=== PATIENT | female | born 1990 | race Caucasian/White ===

== ENCOUNTER → 2017-03-07 | Outpatient (CLI) | payer OTHER ==
[~2017-03-07] MED LIST: BCPILLS PO; CEPH500C PO
[2017-03-07 17:16] LABS: BASO % 0.3 %; BASO ABS # 0.02 K/uL (0-0.2); COMPLETE YES; EOS % 1.4 %; HEMATOCRIT 40.1 % (37-47); IG% 0.1 %; LYMPH % 32.4 %; LYMPH ABS # 2.59 K/uL (1.2-3.4); MEAN CELL VOLUME 87.2 fL (80-100); MEAN CORPUSCULAR HEMOGLOBIN 29.3 pg (25-34); MEAN CORPUSCULAR HGB CONC 33.7 g/dl (32-36); MEAN PLATELET VOLUME 10.8 fL (7.4-10.4); NEUT % 59.8 %; PLATELET COUNT 301 K/uL (130-400)
== END | disposition home or self-care (01) ==
LOC: C.LABBFT 12:00
PROVIDERS: ATTEND Physician Assistant Medical
DX: R53.83 Other fatigue (principal)

== ENCOUNTER 2018-08-28 14:32 | Inpatient (IN) ==
[2018-08-28] MEDS ORDERED: OXYTOCIN 30 UNITS/500 ML BAG IV PRN ×2 (15:08)
--- NOTE | 2018-08-28 15:12 | Labor Progress Brief Note ---
Date of Service August 28, 2018 Subjective LOF clear at home today. Was seen in office this morning, /-2 and intact at that time. Ruptured after went home from appointment. No significant ctx, +FM, no VB. Assessment & Plan (1) PROM (premature rupture of membranes): Ruptured. GBS neg, Rh pos. No obvious labor yet. Will induce with pitocin. Patient plans epidural and will let us know when ready for that. PROM onset of labor timing: unspecified duration between rupture of membranes and onset of labor PROM gestational age: full term Qualified Code(s): O42.92 - Full-term premature rupture of membranes, unspecified as to length of time between rupture and onset of labor Present on Admission?: Yes Physical Exam Physical Exam: /-2 FHT Cat 1 [place] irregular Q1-5, not painful LOF clear, grossly ruptured. Results & Data Vital Signs (Past 12 Hours) Vital Signs Pulse BP 08/28/18 14:48 112 H 136/90 08/28/18 14:42 111 H 128/82
[2018-08-28 15:39] LABS: Hematocrit (blood only) 29.6 % (37-47); Hemoglobin 10.2 g/dL (12.0-16.0); Mean Corpuscular Volume 84.1 fL (80-100); Mean Platelet Volume 10.5 fL (7.4-10.4); Platelet Count 224 K/uL (130-400); RDW Coefficient of Variation 13.4 % (11.5-14.5); RDW Standard Deviation 40.5 fL (36.4-46.3); Red Blood Count 3.52 M/uL (4.2-5.4); White Blood Count 10.48 K/uL (4.8-10.8)
[2018-08-28 15:43] LABS: Mean Corpuscular Hgb Conc 34.5 g/dL (32-36)
--- NOTE | 2018-08-28 16:02 | History & Physical Report ---
Date of Service August 28, 2018 Assessment & Plan (1) SROM (spontaneous rupture of membranes): Pt is a 28 year old with lmp of 11/28/2017 and EDC of 09/04/2018 presenting from the office with srom, confirmed on cervical exam. - FHT reassuring Cat 1 tracing - SROM /-2 - LR @ 125 - If labor fails to progression or ctx are not forceful consider augmentation of labor -PRN Pitocin 30 units in 500 mls @ 1 mls/hr -> up by 2 - Monitor FHT/toco - Monitor BP - Routine labor care - Anticipate Vaginal , Expectant management History of Present Illness Primary Care Provider: Gorge Martin MD Pt is a 28 year old with lmp of 11/28/2017 and EDC of 09/04/2018 confirmed by 1st trimester ultrasound on 01/23/2018 at 8+0 who presents at 39+0 from the outpatient office with SROM. course was significant for suspected diet controlled GDM, cervical exam in office today was /-2 cervical exam today on presentation was /-2 SROM prior to presentation for clear fluid. Pt resting comfortably in bed with lots of family at the bedside. Pt is having a baby girl, Nikole. Currently she reports feeling intermittent contractions >10 minutes apart subjectively, reports kind of like menstrual cramps, they are not very strong. She currently denies nausea, vomiting, RUQ pain, swelling, headache, blurred vision, vaginal bleeding, or decreased movement. No acute concerns at present, answered all questions labs First Visit: 8+0 Weight Gain: 31.2 lbs AB+ antibody neg Last HGB: 10.9 06/26/2018 Rubella Immune HIV neg Pap neg 06/01/17 Last U/S 02/21/18: Cephalic, no obvious abruption EFW 61%, UNA 16.8 EGA:37+3 BP Range 110/60-134/70 U/A: NG GBS negative RPR Negative HBsAG Negative GC/ Chlamydia negative Allergies Allergy/AdvReac Type Severity Reaction Status Date / Time azithromycin Allergy Unknown Verified 08/28/18 15:17 Home Medications Home Medications Medication Instructions Recorded Confirmed Type Control Pills 1 tab PO DAILY #0 11/14/08 History Cephalexin Monohydrate (Keflex) 500 mg PO TID 5 Days #0 11/14/08 Rx Patient History Social History Preferred Language: Beninese Communication Ability: Effective 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 Has been taking PNV throughout the , not on BC at conception [employer] History GYNHX: menearche @ 11, monthly cycles 30 days, normal amount and duration, neg pap 05/02/17, no hx PID or STDS PMHX: hx heart murmur-no SBE prophylaxis, hx migraines, wisdom teeth, + chicken pox Allergies: Z-harpreet-GI upset Physical Exam Constitutional: WD/WN, vitals as above Eyes: normal visual hernandez by confrontation Neck: normal visual inspection and trachea midline Respiratory: normal respiratory effort, lungs clear to auscultation Cardiovascular: RRR, no murmur, no edema Heart Sounds: normal S1 and normal S2 Extremities: normal capillary refill and + pedal edema (ssociated with has not changed in past 3 weeks ); no calf tenderness Gastrointestinal (Abdomen): Gravid belly Skin: no rashes, warm and dry Psychiatric: A+Ox3, euthymic affect Results & Data Vital Signs (Past 12 Hours) Vital Signs Temp Pulse Resp BP 08/28/18 15:04 36.7 C 112 H 18 136/90 08/28/18 14:48 112 H 136/90 08/28/18 14:42 111 H 128/82 Laboratory Results 08/28/18 08/28/18 Range/Units 15:28 15:28 WBC 10.48 (4.8-10.8) K/uL RBC 3.52 L (4.2-5.4) M/uL Hgb 10.2 L (12.0-16.0) g/dL Hct 29.6 L (37-47) % MCV 84.1 (80-100) fL MCH 29.0 (25-34) pg MCHC 34.5 (32-36) g/dL RDW Std Deviation 40.5 (36.4-46.3) fL RDW Coeff of Michael 13.4 (11.5-14.5) % Plt Count 224 (130-400) K/uL MPV 10.5 H (7.4-10.4) fL RPR Pending Medications Administered Current Inpatient Medications Lactated Ringer's (Lr) 1,000 mls @ 125 mls/hr IV .Q8H PRN; Protocol PRN Reason: L&D Protocol Stop: 08/30/18 15:07 Oxytocin (Pitocin) 30 units in 500 mls @ 1 mls/hr IV .Q24H PRN; Protocol PRN Reason: Labor Induction/Augmentation Stop: 08/30/18 15:07 Last Admin: 08/28/18 15:35 Dose: 0.06 units/hr, 1 mls/hr Documented by: Oxytocin (Pitocin) 30 units in 500 mls @ 333.333 mls/hr IV .Q1H30M PRN; Protocol PRN Reason: Bleeding Control Stop: 09/27/18 15:07 Code Status & VTE Plan Code Status Full VTE Prophylaxis Plan VTE Prophylaxis will be ordered: Yes Monitoring External Monitor FHR 145 moderate variability Accels present No Decels CTX q 3 per toco Cat 1 Tracing Resident Activity Tracking Resident Involvement: Resident Care Provided Care Provided: Adult Hospital Medicine
[2018-08-28] MEDS: LACTATED RINGER'S 1,000 ML IV PRN ×2 (16:10→17:39)
[2018-08-28] MEDS ORDERED: BUPIVACAINE 0.25% 30 ML VIAL ONE (17:11)
[2018-08-28] MEDS ORDERED: ePHEDrine sulfate 50 MG/ML AMP ONE (17:11)
[2018-08-28] MEDS ORDERED: fentaNYL citrate 100 MCG/2 ML VIAL ONE (17:13)
[2018-08-28] MEDS ORDERED: fentaNYL 2MCG/ML ROPIV 1.25MG/ML 100 ML BAG EPI ONE (17:14)
--- NOTE | 2018-08-28 18:12 | Anesthesiology Consultation ---
Date of Service August 28, 2018 Assessment & Plan (1) Encounter for pre-operative examination: Chart Review Chart Review: Patient NOT seen in Pre Admission Testing and Acceptable Risk for Labor Epidural Consults Requested none ASA ASA2 Proposed Anesthesia Anesthesia Type: Labor Epidural Risk / Benefits Reviewed With: PT / POA / Parent / Guardian, Accepts Plan and Informed Consent Obtained History Height/Weight Height: 5 ft 3 in Weight: 86.183 kg Allergies Allergy/AdvReac Type Severity Reaction Status Date / Time azithromycin Allergy Unknown Verified 08/28/18 15:17 Medications Home Medications Medication Instructions Recorded Confirmed Last Taken vit-iron fum-folic ac 1 tab PO DAILY 08/28/18 08/28/18 08/27/18 08:00 [ Vitamin] Active Medications Generic Name Dose Route Start Last Admin Trade Name Freq PRN Reason Stop Dose Admin Lactated Ringer's 1,000 mls @ 125 mls/hr 08/28/18 15:08 08/28/18 17:41 Lr IV 08/30/18 15:07 125 mls/hr .Q8H PRN Infusion L&D Protocol Protocol Oxytocin 30 units in 500 mls @ 3 mls/hr 08/28/18 15:08 08/28/18 18:38 Pitocin IV 08/30/18 15:07 0.3 units/hr .Q24H PRN 5 mls/hr Labor Induction/Augmentation Titration Protocol 0.18 UNITS/HR NPO Date Last Intake of Fluids: 08/28/18 Time Last Intake of Fluids: 18:48 Date Last Intake of Solids: 08/28/18 Time Last Intake of Solids: 13:30 Exercise / Class Metabolic Activity II 4-5 Yardwork/Stairs/Walk up hill Past Surgical History Surgical History History of tooth extraction Past Anesthesia History No Hx of Anesthesia Complications and No Family Hx of Anesthesia Complications History of PONV No Hx of PONV and Hx of Motion Sickness Social History Smoking Status: Never smoker Do You Dip or Chew Tobacco: No Hx Alcohol Use: No Hx Substance Use: No substance use type: does not use Review of Systems Patient denies history of abnormal bleeding or bleeding disorder. Patient denies active use of anticoagulants other than low dose aspirin. Patient denies numbness, tingling or weakness in lower extremities. Patient denies active symptoms of GERD. Physical Exam Vital Signs Last Vital Signs Temp 37.0 C 08/28/18 17:54 Pulse 109 H 08/28/18 18:08 Resp 20 08/28/18 17:54 BP 139/77 08/28/18 17:46 Pulse Ox 99 08/28/18 18:08 Constitutional not obese (Gravid uterus) ENMT Mouth: no TMJ abnormality and oral opening not small Thyromental Distance: > or= 3.5 Finger Breadths Mallampati Class: III Mouth / Teeth: 1. Caps Neck normal visual inspection; neck extension not limited Respiratory normal respiratory effort Auscultation: lungs clear to auscultation bilaterally Cardiovascular Rate/Rhythm: regular rate and regular rhythm Heart Sounds: no murmur Neurologic moves all extremities Motor/Sensory: no sensory deficit Psychiatric Orientation: alert and oriented x 3 Testing Laboratory Results 08/28/18 15:28 08/28/18 17:02 POC Glucose 81
[2018-08-28] MEDS ORDERED: NALOXONE HCL 0.4 MG/1 ML VIAL/CARP IV PRN (18:50)
[2018-08-28] MEDS ORDERED: fentaNYL 2MCG/ML ROPIV 1.25MG/ML 100 ML BAG EPI PRN (18:50)
[2018-08-28] MEDS ORDERED: NALOXONE HCL 1 MG in SODIUM CHLORIDE 0.9% 1000ML 1,000 ML IV PRN (18:50)
[2018-08-28] MEDS ORDERED: ePHEDrine sulfate 50 MG/ML AMP IV PRN (18:50)
[2018-08-28] MEDS ORDERED: NALBUPHINE HCL INJ 10 MG/ML AMP IV PRN (18:50)
[2018-08-28] MEDS ORDERED: DiphenhydrAMINE HCL 50 MG/ML VIAL IV PRN (18:50)
[2018-08-28] MEDS ORDERED: ONDANSETRON INJ 2 MG/ML 2 ML VIAL IV PRN (18:50)
[2018-08-28] MEDS ORDERED: LACTATED RINGER'S 1,000 ML IV PRN (18:50)
[2018-08-29] MEDS: LACTATED RINGER'S 1,000 ML IV PRN ×2 (01:38→06:27)
--- NOTE | 2018-08-29 02:09 | Labor Progress Brief Note ---
Date of Service August 29, 2018 Subjective Comfortable with epidural Assessment & Plan (1) PROM (premature rupture of membranes): IOL with good progress. Close obs of status with decel after exam. PROM onset of labor timing: unspecified duration between rupture of membranes and onset of labor PROM gestational age: full term Qualified Code(s): O42.92 - Full-term premature rupture of membranes, unspecified as to length of time between rupture and onset of labor Present on Admission?: Yes Physical Exam Physical Exam: FHT Cat 1 [place] Q2m Cvx 8/90/+1 FHT noted to decelerate after exam / scalp stim. Recovered to 150 baseline. Results & Data Vital Signs (Past 12 Hours) Vital Signs Temp Pulse Resp BP Pulse Ox 08/29/18 02:04 105 H 121/56 L 08/29/18 02:03 97 H 98 08/29/18 01:58 123 H 99 08/29/18 01:53 105 H 100 08/29/18 01:49 93 H 123/61 08/29/18 01:48 109 H 91 08/29/18 01:43 92 H 98 08/29/18 01:38 96 H 99 08/29/18 01:33 90 99 08/29/18 01:28 101 H 98 08/29/18 01:23 98 H 97 08/29/18 01:20 94 H 124/73 08/29/18 01:18 101 H 97 08/29/18 01:13 97 H 97 08/29/18 01:08 95 H 97 08/29/18 01:03 94 H 126/73 97 08/29/18 01:00 18 08/29/18 00:58 90 97 08/29/18 00:53 89 99 08/29/18 00:50 37.0 C 08/29/18 00:49 101 H 131/77 08/29/18 00:48 102 H 99 08/29/18 00:43 93 H 100 08/29/18 00:38 90 97 08/29/18 00:34 88 116/65 08/29/18 00:33 85 97 08/29/18 00:30 18 08/29/18 00:28 86 97 08/29/18 00:23 89 97 08/29/18 00:19 88 116/68 08/29/18 00:18 88 98 08/29/18 00:13 96 H 99 08/29/18 00:08 95 H 98 08/29/18 00:04 93 H 134/74 08/29/18 00:03 94 H 99 08/29/18 00:00 16 08/28/18 23:58 99 H 98 08/28/18 23:53 100 H 97 08/28/18 23:49 99 H 128/75 08/28/18 23:48 95 H 96 08/28/18 23:43 100 H 98 08/28/18 23:38 96 H 98 08/28/18 23:35 91 H 131/74 08/28/18 23:33 93 H 98 08/28/18 23:30 16 08/28/18 23:28 97 H 98 08/28/18 23:23 91 H 98 08/28/18 23:20 90 125/76 08/28/18 23:18 91 H 99 08/28/18 23:15 18 08/28/18 23:13 109 H 97 08/28/18 23:08 101 H 99 08/28/18 23:03 87 110/59 L 98 08/28/18 23:00 36.7 C 18 08/28/18 22:58 86 97 08/28/18 22:53 94 H 97 08/28/18 22:48 82 117/64 97 08/28/18 22:43 84 97 08/28/18 22:38 96 H 98 08/28/18 22:35 95 H 115/66 08/28/18 22:33 100 H 97 08/28/18 22:28 87 97 08/28/18 22:23 87 98 08/28/18 22:18 93 H 99 08/28/18 22:13 93 H 98 08/28/18 22:12 99 H 139/75 08/28/18 22:08 108 H 98 08/28/18 22:03 108 H 98 08/28/18 21:58 103 H 97 08/28/18 21:56 106 H 134/64 08/28/18 21:53 112 H 96 08/28/18 21:48 110 H 97 08/28/18 21:43 105 H 98 08/28/18 21:42 105 H 129/63 08/28/18 21:38 105 H 97 08/28/18 21:33 95 H 98 05/13/19 21:28 105 H 97 08/28/18 21:26 95 H 118/64 05 21:23 108 H 97 08/28/18 21:18 107 H 98 05 21:13 112 H 99 08/28/18 21:11 99 H 134/78 08/28/18 21:08 96 H 97 08/28/18 21:03 99 H 97 08/28/18 20:58 87 98 08/28/18 20:57 85 108/60 08/28/18 20:53 84 99 08/28/18 20:48 91 H 97 08/28/18 20:43 84 99 08/28/18 20:42 82 118/64 08/28/18 20:38 84 97 08/28/18 20:33 96 H 98 08/28/18 20:28 90 98 08/28/18 20:26 84 123/63 08/28/18 20:23 83 99 08/28/18 20:18 100 H 98 08/28/18 20:13 97 H 98 08/28/18 20:11 93 H 138/63 08/28/18 20:08 100 H 97 08/28/18 20:03 106 H 98 08/28/18 20:01 37.0 C 18 08/28/18 19:58 98 H 132/65 97 08/28/18 19:53 93 H 97 08/28/18 19:48 89 98 08/28/18 19:43 95 H 97 08/28/18 19:41 92 H 126/67 08/28/18 19:38 91 H 97 08/28/18 19:33 103 H 98 08/28/18 19:28 102 H 98 08/28/18 19:27 96 H 129/75 08/28/18 19:23 98 H 97 08/28/18 19:18 96 H 99 08/28/18 19:13 98 H 99 08/28/18 19:12 95 H 153/65 H 05 19:08 95 H 98 08/28/18 19:03 94 H 98 05 18:58 101 H 98 08/28/18 18:55 107 H 129/73 08/28/18 18:53 89 133/66 97 08/28/18 18:51 98 H 139/69 08/28/18 18:49 115 H 133/79 08/28/18 18:48 113 H 98 08/28/18 18:47 104 H 137/79 08/28/18 18:45 110 H 132/76 08/28/18 18:43 105 H 135/82 97 08/28/18 18:41 112 H 126/78 08/28/18 18:39 100 H 128/71 08/28/18 18:38 105 H 98 08/28/18 18:37 98 H 132/73 08/28/18 18:36 102 H 138/77 08/28/18 18:33 102 H 99 08/28/18 18:28 111 H 97 08/28/18 18:27 112 H 150/84 H 08/28/18 18:23 113 H 88 L 08/28/18 18:22 104 H 150/79 H 08/28/18 18:18 103 H 98 08/28/18 18:17 104 H 151/85 H 08/28/18 18:13 105 H 98 08/28/18 18:08 109 H 99 08/28/18 18:03 110 H 96 08/28/18 17:58 96 H 98 08/28/18 17:54 37.0 C 20 08/28/18 17:53 103 H 96 08/28/18 17:48 107 H 96 08/28/18 17:46 91 H 139/77 08/28/18 17:43 94 H 98 08/28/18 17:38 100 H 98 08/28/18 17:34 102 H 136/71 08/28/18 17:33 104 H 99 08/28/18 15:30 37.0 C 18 08/28/18 15:04 36.7 C 112 H 18 136/90 08/28/18 14:48 112 H 136/90 08/28/18 14:42 111 H 128/82
[2018-08-29] MEDS ORDERED: CITRIC ACID/SODIUM CITRATE 15 ML UDC PO SCH (06:00)
[2018-08-29] MEDS ORDERED: CEFAZOLIN 3000MG 65 ML IV SCH (06:00)
[2018-08-29] MEDS ORDERED: LACTATED RINGER'S 1,000 ML IV SCH ×3 (06:15→08:00)
--- NOTE | 2018-08-29 06:16 | Labor Progress Brief Note ---
Date of Service August 29, 2018 Subjective Patient visited after pushing for two hours. I have monitored her strip remotely through the second stage of labor, and noted improvement in heart tones; effective pushing per RN; therefore patient given two hours to attempt to deliver. Patient now expressing to me in the room that she is tired and feels unsure she is "making anything happen." Assessment & Plan (1) SROM (spontaneous rupture of membranes): Patient given 2 hours to attempt second stage of labor. She gives excellent pushing effort and has succeeded in bringing caput to +2, however assessment of skull shows less progress than anticipated, and head remains displaceable suggesting CPD. The labial edema also causes me to have concerns about fit through the pelvis. FHT are currently reassuring and appropriate for stage 2, and patient was counseled on options including to continue pushing vs to move to for suspected CPD. There is no emergency at this time given reassuring status, though I do doubt that she has much chance of delivering vaginally given the findings at this point. At this time, patient feels confident that she prefers to move to without further delay. Consent completed with RN and FOB in room. All questions answered. Present on Admission?: Yes Physical Exam Physical Exam: Patient has bed-bar up and sheet wrapped around; has been making excellent efforts to push with use of counter-pulling. Labia are significantly swollen. With pushing effort, scalp strains down to +2 station. However, caput is significant. skull is not moving well, and after pushing effort ceases, it is easily displaced upwards to allow significant flow of clear amniotic fluid per vagina. Results & Data Vital Signs (Past 12 Hours) Vital Signs Temp Pulse Resp BP Pulse Ox 08/29/18 06:08 137 H 88 L 08/29/18 06:04 110 H 127/60 08/29/18 06:03 174 H 87 L 08/29/18 05:58 110 H 94 08/29/18 05:53 115 H 98 08/29/18 05:51 130 H 86 L 08/29/18 05:49 127 H 117/60 08/29/18 05:48 155 H 88 L 08/29/18 05:45 126 H 92 08/29/18 05:43 98 H 82 L 05/14/19 05:38 115 H 95 08/29/18 05:35 115 H 75 L 08/29/18 05:34 127 H 141/60 H 08/29/18 05:33 123 H 68 L 08/29/18 05:29 122 H 93 08/29/18 05:28 107 H 96 08/29/18 05:23 122 H 98 08/29/18 05:19 120 H 117/63 08/29/18 05:18 135 H 97 08/29/18 05:15 20 08/29/18 05:13 112 H 95 08/29/18 05:08 103 H 96 08/29/18 05:03 112 H 97 08/29/18 05:00 18 08/29/18 04:58 110 H 97 08/29/18 04:53 108 H 97 08/29/18 04:48 103 H 133/61 96 08/29/18 04:45 18 08/29/18 04:43 113 H 98 08/29/18 04:38 143 H 97 08/29/18 04:34 118 H 117/62 08/29/18 04:33 100 H 97 08/29/18 04:30 20 08/29/18 04:28 123 H 98 08/29/18 04:23 104 H 97 08/29/18 04:20 127 H 140/55 L 08/29/18 04:18 133 H 94 08/29/18 04:15 18 08/29/18 04:13 147 H 96 08/29/18 04:08 122 H 97 08/29/18 04:05 139 H 86 L 08/29/18 04:04 127 H 127/59 L 08/29/18 04:03 128 H 96 08/29/18 04:00 120 H 20 91 08/29/18 03:58 141 H 98 08/29/18 03:53 115 H 96 08/29/18 03:49 131 H 120/58 L 08/29/18 03:48 117 H 98 08/29/18 03:43 119 H 98 08/29/18 03:42 37.4 C 08/29/18 03:38 104 H 98 08/29/18 03:35 105 H 129/65 08/29/18 03:33 107 H 98 08/29/18 03:30 16 08/29/18 03:28 107 H 97 08/29/18 03:23 101 H 98 08/29/18 03:19 104 H 116/61 08/29/18 03:18 102 H 98 08/29/18 03:13 108 H 98 08/29/18 03:10 37.6 C H 08/29/18 03:08 100 H 98 08/29/18 03:04 100 H 115/60 08/29/18 03:03 100 H 97 08/29/18 03:00 18 08/29/18 02:58 108 H 98 08/29/18 02:53 103 H 98 08/29/18 02:48 107 H 125/70 98 08/29/18 02:43 105 H 97 08/29/18 02:38 105 H 98 08/29/18 02:35 102 H 129/74 08/29/18 02:33 102 H 98 08/29/18 02:30 18 08/29/18 02:28 104 H 99 08/29/18 02:23 104 H 99 08/29/18 02:22 36.8 C 08/29/18 02:18 106 H 128/63 99 08/29/18 02:13 97 H 99 08/29/18 02:08 102 H 98 08/29/18 02:04 105 H 121/56 L 08/29/18 02:03 97 H 98 08/29/18 02:00 18 08/29/18 01:58 123 H 99 08/29/18 01:53 105 H 100 08/29/18 01:49 93 H 123/61 08/29/18 01:48 109 H 91 08/29/18 01:43 92 H 98 08/29/18 01:38 96 H 99 08/29/18 01:33 90 99 08/29/18 01:30 20 08/29/18 01:28 101 H 98 08/29/18 01:23 98 H 97 08/29/18 01:20 94 H 124/73 08/29/18 01:18 101 H 97 08/29/18 01:13 97 H 97 08/29/18 01:08 95 H 97 08/29/18 01:03 94 H 126/73 97 08/29/18 01:00 18 08/29/18 00:58 90 97 08/29/18 00:53 89 99 08/29/18 00:50 37.0 C 08/29/18 00:49 101 H 131/77 08/29/18 00:48 102 H 99 08/29/18 00:43 93 H 100 08/29/18 00:38 90 97 08/29/18 00:34 88 116/65 08/29/18 00:33 85 97 08/29/18 00:30 18 08/29/18 00:28 86 97 08/29/18 00:23 89 97 08/29/18 00:19 88 116/68 08/29/18 00:18 88 98 08/29/18 00:13 96 H 99 08/29/18 00:08 95 H 98 08/29/18 00:04 93 H 134/74 08/29/18 00:03 94 H 99 08/29/18 00:00 16 08/28/18 23:58 99 H 98 08/28/18 23:53 100 H 97 08/28/18 23:49 99 H 128/75 08/28/18 23:48 95 H 96 08/28/18 23:43 100 H 98 08/28/18 23:38 96 H 98 08/28/18 23:35 91 H 131/74 08/28/18 23:33 93 H 98 08/28/18 23:30 16 08/28/18 23:28 97 H 98 08/28/18 23:23 91 H 98 08/28/18 23:20 90 125/76 08/28/18 23:18 91 H 99 08/28/18 23:15 18 08/28/18 23:13 109 H 97 08/28/18 23:08 101 H 99 08/28/18 23:03 87 110/59 L 98 08/28/18 23:00 36.7 C 18 08/28/18 22:58 86 97 08/28/18 22:53 94 H 97 08/28/18 22:48 82 117/64 97 08/28/18 22:43 84 97 08/28/18 22:38 96 H 98 08/28/18 22:35 95 H 115/66 08/28/18 22:33 100 H 97 08/28/18 22:28 87 97 08/28/18 22:23 87 98 08/28/18 22:18 93 H 99 08/28/18 22:13 93 H 98 08/28/18 22:12 99 H 139/75 08/28/18 22:08 108 H 98 05 22:03 108 H 98 08/28/18 21:58 103 H 97 08/28/18 21:56 106 H 134/64 08/28/18 21:53 112 H 96 08/28/18 21:48 110 H 97 08/28/18 21:43 105 H 98 08/28/18 21:42 105 H 129/63 08/28/18 21:38 105 H 97 08/28/18 21:33 95 H 98 08/28/18 21:28 105 H 97 08/28/18 21:26 95 H 118/64 08/28/18 21:23 108 H 97 08/28/18 21:18 107 H 98 08/28/18 21:13 112 H 99 08/28/18 21:11 99 H 134/78 08/28/18 21:08 96 H 97 08/28/18 21:03 99 H 97 08/28/18 20:58 87 98 08/28/18 20:57 85 108/60 08/28/18 20:53 84 99 08/28/18 20:48 91 H 97 08/28/18 20:43 84 99 08/28/18 20:42 82 118/64 08/28/18 20:38 84 97 08/28/18 20:33 96 H 98 08/28/18 20:28 90 98 08/28/18 20:26 84 123/63 08/28/18 20:23 83 99 08/28/18 20:18 100 H 98 08/28/18 20:13 97 H 98 08/28/18 20:11 93 H 138/63 08/28/18 20:08 100 H 97 08/28/18 20:03 106 H 98 08/28/18 20:01 37.0 C 18 08/28/18 19:58 98 H 132/65 97 08/28/18 19:53 93 H 97 08/28/18 19:48 89 98 08/28/18 19:43 95 H 97 08/28/18 19:41 92 H 126/67 08/28/18 19:38 91 H 97 08/28/18 19:33 103 H 98 08/28/18 19:28 102 H 98 05 19:27 96 H 129/75 05/ 19:23 98 H 97 05 19:18 96 H 99 05 19:13 98 H 99 05 19:12 95 H 153/65 H 08/28/18 19:08 95 H 98 05 19:03 94 H 98 08/28/18 18:58 101 H 98 08/28/18 18:55 107 H 129/73 08/28/18 18:53 89 133/66 97 08/28/18 18:51 98 H 139/69 08/28/18 18:49 115 H 133/79 08/28/18 18:48 113 H 98 08/28/18 18:47 104 H 137/79 08/28/18 18:45 110 H 132/76 08/28/18 18:43 105 H 135/82 97 08/28/18 18:41 112 H 126/78 08/28/18 18:39 100 H 128/71 08/28/18 18:38 105 H 98 08/28/18 18:37 98 H 132/73 / 18:36 102 H 138/77 08/28/18 18:33 102 H 99 08/28/18 18:28 111 H 97 08/28/18 18:27 112 H 150/84 H 08/28/18 18:23 113 H 88 L 08/28/18 18:22 104 H 150/79 H 08/28/18 18:18 103 H 98 08/28/18 18:17 104 H 151/85 H 08/28/18 18:13 105 H 98
[2018-08-29] MEDS ORDERED: LIDOCAINE/EPINEPHRINE 2% 1:200,000 20 ML SDV ONE (06:19)
[2018-08-29] MEDS ORDERED: fentaNYL citrate 100 MCG/2 ML VIAL ONE (07:00)
[2018-08-29] MEDS ORDERED: ONDANSETRON INJ 2 MG/ML 2 ML VIAL ONE (07:00)
[2018-08-29] MEDS ORDERED: MoRPHine SULFATE PF 1 MG/ML 10 ML AMP/VIAL ONE (07:12)
[2018-08-29] MEDS ORDERED: KETOROLAC 30 MG/ML VIAL ONE (07:38)
[2018-08-29] MEDS ORDERED: PHENYLEPHRINE 100MCG/ML 5ML SYR ONE (07:44)
[2018-08-29] MEDS ORDERED: DIPHTHERIA/TETANUS/PERTUSSIS 0.5 ML SYR/VIAL IM ONE (07:51)
[2018-08-29] MEDS ORDERED: BENZOCAINE 20% AER SPR 82.5 GM CAN EXT PRN (07:51)
[2018-08-29] MEDS ORDERED: SUPERCREAM 0.870% 15 GM JAR EXT PRN (07:51)
[2018-08-29] MEDS ORDERED: HYDROCORTISONE ACETATE 25 MG SUPP PR PRN (07:51)
[2018-08-29] MEDS ORDERED: ONDANSETRON INJ 2 MG/ML 2 ML VIAL IV PRN ×2 (07:51→07:54)
--- NOTE | 2018-08-29 07:52 | Operative Report ---
Post Operative Report Pre & Post Diagnosis Operation Date: 08/29/18 06:10 Pre-Op Diagnosis: SIUP @ Term PROM, IOL. Failure to descend in second stage Post-Op Diagnosis: same as pre-op Procedure Operation Date: 08/29/18 06:10 Actual Procedures p Primary LT Section in LD, delivery of live female child at 0715 - Sharon Mcmanus MD Surgeon Sharon Mcmanus MD Legal Document Specialist Dori Estimated Blood Loss 700 Findings Consistent with Post-Op Diagnosis Normal tubes, ovaries. Specimens Placenta, cord blood, cord gases Anesthesia Type Spinal Complications none Disposition Accompanied Patient To Recovery: Yes Disposition: L&D Description of Procedure The patient was brought to the operating room and placed on the table in the supine position with a leftward tilt, then prepped and draped in standard sterile fashion. A hard time out was taken prior to proceeding. A pfannensteil incision was created sharply and carried down to the fascia using bovie electrocautery. The fascia was nicked and then extended using navarro scissors. The edges of the fascia were grasped with Estrellita clamps and elevated, then sharply and bluntly dissected off the underlying rectus. The midline of the rectus was identified and bluntly . The peritoneum was bluntly entered, and this entry was extended using pressure from the surgeon's hands. The Jordan retractor was placed and the lower uterine segment was examined and found to be well developed. A bladder flap was created and the retractor was replaced behind this flap to protect the bladder. A transverse lower uterine incision was then created, with final entry to the uterine cavity made in a blunt manner with the surgeon's finger. Clear amniotic fluid was encountered. The head was elevated to the incision with a sterile gloved assist from below, and delivered using mild fundal pressure. The cord was doubly clamped and cut, then the vigorous infant was taken to the warmer for flat surfacer jewel care. The placenta was manually extracted, then the uterus was gently exteriorized from the maternal abdomen. The tubes and ovaries were examined and found to be normal bilaterally. The cavity was cleared of clot and debris using a dry lap sponge. The angles of the incision were identified with allis clamps, and the hysterotomy was then repaired in running locked fashion using 0-vicryl suture, followed by replacement of the uterus into the abdomen and a second imbricating layer was then added. Abisai and pressure were used to assure hemostasis in the area of the bladder flap. The rectus muscles were allowed to reapproximate naturally. The angle of the fascia was grasped with a Estrellita clamp and the fascia was then repaired in running non-locked fashion with 1-vicryl suture. At the completion of repair, the fascia was examined and found to be free of any defect. The subcutaneous tissue was copiously irrigated and then reapproximated using 3-0 chromic. The skin was then closed using 4-0 monocryl in a running subcuticular fashion and a dermabond dressing was applied. The laureano was noted to be draining clear yellow urine as the patient was transferred back to her recovery room. I attest to the content of the Intraoperative Record and any orders documented therein. Any exceptions are noted below.
[2018-08-29] MEDS ORDERED: NALOXONE HCL 0.08 MG in SYRINGE 1.8 ML IV PRN (07:54)
[2018-08-29] MEDS ORDERED: NALOXONE HCL 0.4 MG/1 ML VIAL/CARP IV PRN (07:54)
[2018-08-29] MEDS ORDERED: PROMETHAZINE HCL 25 MG in SODIUM CHLORIDE 0.9% 50 ML IV PRN (07:54)
[2018-08-29] MEDS ORDERED: KETOROLAC 30 MG/ML VIAL IV PRN (07:54)
[2018-08-29] MEDS ORDERED: HYDROmorphone INJ 0.5 MG/0.5 ML SYR IV PRN (07:54)
[2018-08-29] MEDS ORDERED: NALOXONE HCL 1 MG in SODIUM CHLORIDE 0.9% 1000ML 1,000 ML IV PRN (07:54)
[2018-08-29] MEDS ORDERED: ePHEDrine sulfate 50 MG/ML AMP IV PRN (07:54)
[2018-08-29] MEDS ORDERED: ACETAMINOPHEN 1000 MG/100 ML IV IV PRN (07:54)
[2018-08-29] MEDS ORDERED: LACTATED RINGER'S 500 ML IV PRN (07:54)
[2018-08-29] MEDS ORDERED: DiphenhydrAMINE HCL 50 MG/ML VIAL IV PRN (07:54)
[2018-08-29] MEDS ORDERED: MoRPHine SULFATE PF 1 MG/ML 10 ML AMP/VIAL EPI ONE (07:54)
[2018-08-29] MEDS ORDERED: NALBUPHINE HCL INJ 10 MG/ML AMP IV PRN (07:54)
--- NOTE | 2018-08-29 07:54 | Anesthesiology Progress Note ---
Date of Service August 29, 2018 Anesthesia Post Procedure Vital Signs Vital Signs: Temp Pulse Resp BP Pulse Ox 08/29/18 06:46 113 H 114/58 L 08/29/18 06:44 110 H 109/59 L 08/29/18 06:43 106 H 97 08/29/18 06:42 107 H 113/59 L 08/29/18 06:40 105 H 110/56 L 08/29/18 06:38 104 H 117/57 L 98 08/29/18 06:36 107 H 110/55 L 08/29/18 06:34 110 H 119/57 L 08/29/18 06:33 120 H 97 08/29/18 06:32 114 H 125/70 08/29/18 06:28 104 H 97 08/29/18 06:24 129 H 91 08/29/18 06:23 139 H 95 08/29/18 06:19 177 H 87 L 08/29/18 06:18 114 H 94 08/29/18 06:13 132 H 88 L 08/29/18 06:10 107 H 91 08/29/18 06:08 137 H 88 L 08/29/18 06:04 110 H 127/60 08/29/18 06:03 174 H 87 L 08/29/18 06:00 16 08/29/18 05:58 110 H 94 08/29/18 05:53 115 H 98 08/29/18 05:51 130 H 86 L 08/29/18 05:49 127 H 117/60 08/29/18 05:48 155 H 88 L 08/29/18 05:45 37.4 C 126 H 20 92 08/29/18 05:43 98 H 82 L 08/29/18 05:38 115 H 95 08/29/18 05:35 115 H 75 L 08/29/18 05:34 127 H 141/60 H 08/29/18 05:33 123 H 68 L 08/29/18 05:30 18 08/29/18 05:29 122 H 93 08/29/18 05:28 107 H 96 08/29/18 05:23 122 H 98 08/29/18 05:19 120 H 117/63 08/29/18 05:18 135 H 97 08/29/18 05:15 20 08/29/18 05:13 112 H 95 08/29/18 05:08 103 H 96 08/29/18 05:03 112 H 97 08/29/18 05:00 18 08/29/18 04:58 110 H 97 08/29/18 04:53 108 H 97 08/29/18 04:48 103 H 133/61 96 08/29/18 04:45 18 08/29/18 04:43 113 H 98 08/29/18 04:38 143 H 97 08/29/18 04:34 118 H 117/62 08/29/18 04:33 100 H 97 08/29/18 04:30 20 08/29/18 04:28 123 H 98 08/29/18 04:23 104 H 97 08/29/18 04:20 127 H 140/55 L 08/29/18 04:18 133 H 94 08/29/18 04:15 18 08/29/18 04:13 147 H 96 08/29/18 04:08 122 H 97 08/29/18 04:05 139 H 86 L 08/29/18 04:04 127 H 127/59 L 08/29/18 04:03 128 H 96 08/29/18 04:00 120 H 20 91 08/29/18 03:58 141 H 98 08/29/18 03:53 115 H 96 08/29/18 03:49 131 H 120/58 L 08/29/18 03:48 117 H 98 08/29/18 03:43 119 H 98 08/29/18 03:42 37.4 C 08/29/18 03:38 104 H 98 08/29/18 03:35 105 H 129/65 08/29/18 03:33 107 H 98 08/29/18 03:30 16 08/29/18 03:28 107 H 97 08/29/18 03:23 101 H 98 08/29/18 03:19 104 H 116/61 08/29/18 03:18 102 H 98 08/29/18 03:13 108 H 98 08/29/18 03:10 37.6 C H 08/29/18 03:08 100 H 98 08/29/18 03:04 100 H 115/60 08/29/18 03:03 100 H 97 08/29/18 03:00 18 08/29/18 02:58 108 H 98 08/29/18 02:53 103 H 98 08/29/18 02:48 107 H 125/70 98 08/29/18 02:43 105 H 97 08/29/18 02:38 105 H 98 08/29/18 02:35 102 H 129/74 08/29/18 02:33 102 H 98 08/29/18 02:30 18 08/29/18 02:28 104 H 99 08/29/18 02:23 104 H 99 08/29/18 02:22 36.8 C 08/29/18 02:18 106 H 128/63 99 08/29/18 02:13 97 H 99 08/29/18 02:08 102 H 98 08/29/18 02:04 105 H 121/56 L 08/29/18 02:03 97 H 98 08/29/18 02:00 18 08/29/18 01:58 123 H 99 08/29/18 01:53 105 H 100 08/29/18 01:49 93 H 123/61 08/29/18 01:48 109 H 91 08/29/18 01:43 92 H 98 08/29/18 01:38 96 H 99 08/29/18 01:33 90 99 08/29/18 01:30 20 08/29/18 01:28 101 H 98 08/29/18 01:23 98 H 97 08/29/18 01:20 94 H 124/73 08/29/18 01:18 101 H 97 08/29/18 01:13 97 H 97 08/29/18 01:08 95 H 97 08/29/18 01:03 94 H 126/73 97 08/29/18 01:00 18 08/29/18 00:58 90 97 08/29/18 00:53 89 99 08/29/18 00:50 37.0 C 08/29/18 00:49 101 H 131/77 08/29/18 00:48 102 H 99 08/29/18 00:43 93 H 100 08/29/18 00:38 90 97 08/29/18 00:34 88 116/65 08/29/18 00:33 85 97 08/29/18 00:30 18 08/29/18 00:28 86 97 08/29/18 00:23 89 97 08/29/18 00:19 88 116/68 08/29/18 00:18 88 98 08/29/18 00:13 96 H 99 08/29/18 00:08 95 H 98 08/29/18 00:04 93 H 134/74 08/29/18 00:03 94 H 99 08/29/18 00:00 16 08/28/18 23:58 99 H 98 08/28/18 23:53 100 H 97 08/28/18 23:49 99 H 128/75 08/28/18 23:48 95 H 96 08/28/18 23:43 100 H 98 08/28/18 23:38 96 H 98 08/28/18 23:35 91 H 131/74 08/28/18 23:33 93 H 98 08/28/18 23:30 16 08/28/18 23:28 97 H 98 08/28/18 23:23 91 H 98 08/28/18 23:20 90 125/76 08/28/18 23:18 91 H 99 08/28/18 23:15 18 08/28/18 23:13 109 H 97 08/28/18 23:08 101 H 99 08/28/18 23:03 87 110/59 L 98 08/28/18 23:00 36.7 C 18 08/28/18 22:58 86 97 08/28/18 22:53 94 H 97 08/28/18 22:48 82 117/64 97 08/28/18 22:43 84 97 08/28/18 22:38 96 H 98 08/28/18 22:35 95 H 115/66 08/28/18 22:33 100 H 97 08/28/18 22:28 87 97 08/28/18 22:23 87 98 08/28/18 22:18 93 H 99 08/28/18 22:13 93 H 98 08/28/18 22:12 99 H 139/75 08/28/18 22:08 108 H 98 08/28/18 22:03 108 H 98 08/28/18 21:58 103 H 97 08/28/18 21:56 106 H 134/64 08/28/18 21:53 112 H 96 08/28/18 21:48 110 H 97 08/28/18 21:43 105 H 98 08/28/18 21:42 105 H 129/63 08/28/18 21:38 105 H 97 05/13/19 21:33 95 H 98 08/28/18 21:28 105 H 97 08/28/18 21:26 95 H 118/64 05 21:23 108 H 97 08/28/18 21:18 107 H 98 08/28/18 21:13 112 H 99 08/28/18 21:11 99 H 134/78 08/28/18 21:08 96 H 97 08/28/18 21:03 99 H 97 08/28/18 20:58 87 98 08/28/18 20:57 85 108/60 08/28/18 20:53 84 99 08/28/18 20:48 91 H 97 08/28/18 20:43 84 99 08/28/18 20:42 82 118/64 08/28/18 20:38 84 97 08/28/18 20:33 96 H 98 08/28/18 20:28 90 98 08/28/18 20:26 84 123/63 08/28/18 20:23 83 99 08/28/18 20:18 100 H 98 08/28/18 20:13 97 H 98 08/28/18 20:11 93 H 138/63 08/28/18 20:08 100 H 97 08/28/18 20:03 106 H 98 08/28/18 20:01 37.0 C 18 08/28/18 19:58 98 H 132/65 97 08/28/18 19:53 93 H 97 08/28/18 19:48 89 98 08/28/18 19:43 95 H 97 08/28/18 19:41 92 H 126/67 08/28/18 19:38 91 H 97 08/28/18 19:33 103 H 98 08/28/18 19:28 102 H 98 08/28/18 19:27 96 H 129/75 08/28/18 19:23 98 H 97 08/28/18 19:18 96 H 99 08/28/18 19:13 98 H 99 05 19:12 95 H 153/65 H 05 19:08 95 H 98 05 19:03 94 H 98 08/28/18 18:58 101 H 98 05 18:55 107 H 129/73 08/28/18 18:53 89 133/66 97 08/28/18 18:51 98 H 139/69 08/28/18 18:49 115 H 133/79 08/28/18 18:48 113 H 98 08/28/18 18:47 104 H 137/79 08/28/18 18:45 110 H 132/76 08/28/18 18:43 105 H 135/82 97 08/28/18 18:41 112 H 126/78 08/28/18 18:39 100 H 128/71 08/28/18 18:38 105 H 98 08/28/18 18:37 98 H 132/73 08/28/18 18:36 102 H 138/77 08/28/18 18:33 102 H 99 08/28/18 18:28 111 H 97 08/28/18 18:27 112 H 150/84 H 08/28/18 18:23 113 H 88 L 08/28/18 18:22 104 H 150/79 H 08/28/18 18:18 103 H 98 08/28/18 18:17 104 H 151/85 H 08/28/18 18:13 105 H 98 08/28/18 18:08 109 H 99 08/28/18 18:03 110 H 96 08/28/18 17:58 96 H 98 08/28/18 17:54 37.0 C 20 08/28/18 17:53 103 H 96 08/28/18 17:48 107 H 96 08/28/18 17:46 91 H 139/77 08/28/18 17:43 94 H 98 08/28/18 17:38 100 H 98 08/28/18 17:34 102 H 136/71 08/28/18 17:33 104 H 99 08/28/18 15:30 37.0 C 18 08/28/18 15:04 36.7 C 112 H 18 136/90 08/28/18 14:48 112 H 136/90 08/28/18 14:42 111 H 128/82 Pain Intensity Right Lower Abdomen: Pain Intensity: 4 Left Pelvic: Pain Intensity: 5 Notes Mental Status: alert / awake / arousable and participated in evaluation Nausea / Vomiting: adequately controlled Pain: adequately controlled Airway Patency, RR, SpO2: stable & adequate BP & HR: stable & adequate Hydration State: stable & adequate Neuraxial Anesthesia: was administered and sensory block is resolving Anesthetic Complications: no major complications apparent and Pt Satisfied with anesthetic care
[2018-08-29] MEDS ORDERED: OXYTOCIN 30 UNITS in LACTATED RINGER'S 1,000 ML IV SCH (08:00)
[2018-08-29] MEDS ORDERED: SODIUM CHLORIDE 0.9% 1000ML 1,000 ML IV SCH (08:00)
[2018-08-29] MEDS ORDERED: DC INTRASPINAL MORPHINE SCH (08:00)
[2018-08-29] MEDS ORDERED: NO NARCOTICS OR SEDATIVES SCH (08:00)
--- NOTE | 2018-08-29 08:13 | Anesthesiology Progress Note ---
Date of Service August 29, 2018 Anesthesia Post Procedure Vital Signs Vital Signs: Temp Pulse Resp BP Pulse Ox 08/29/18 08:08 108 H 106/57 L 100 08/29/18 08:03 102 H 99 08/29/18 07:58 106 H 131/58 L 100 08/29/18 06:46 113 H 16 114/58 L 08/29/18 06:44 110 H 109/59 L 08/29/18 06:43 106 H 97 08/29/18 06:42 107 H 113/59 L 08/29/18 06:40 105 H 110/56 L 08/29/18 06:38 104 H 117/57 L 98 08/29/18 06:36 107 H 110/55 L 08/29/18 06:34 110 H 119/57 L 08/29/18 06:33 120 H 97 08/29/18 06:32 114 H 125/70 08/29/18 06:30 18 08/29/18 06:28 104 H 97 08/29/18 06:24 129 H 91 08/29/18 06:23 139 H 95 08/29/18 06:19 177 H 87 L 08/29/18 06:18 114 H 94 08/29/18 06:13 132 H 88 L 08/29/18 06:10 107 H 91 08/29/18 06:08 137 H 88 L 08/29/18 06:04 110 H 127/60 08/29/18 06:03 174 H 87 L 08/29/18 06:00 16 08/29/18 05:58 110 H 94 08/29/18 05:53 115 H 98 08/29/18 05:51 130 H 86 L 08/29/18 05:49 127 H 117/60 08/29/18 05:48 155 H 88 L 08/29/18 05:45 37.4 C 126 H 20 92 08/29/18 05:43 98 H 82 L 08/29/18 05:38 115 H 95 08/29/18 05:35 115 H 75 L 08/29/18 05:34 127 H 141/60 H 08/29/18 05:33 123 H 68 L 08/29/18 05:30 18 08/29/18 05:29 122 H 93 08/29/18 05:28 107 H 96 08/29/18 05:23 122 H 98 08/29/18 05:19 120 H 117/63 08/29/18 05:18 135 H 97 08/29/18 05:15 20 08/29/18 05:13 112 H 95 08/29/18 05:08 103 H 96 08/29/18 05:03 112 H 97 08/29/18 05:00 18 08/29/18 04:58 110 H 97 08/29/18 04:53 108 H 97 08/29/18 04:48 103 H 133/61 96 08/29/18 04:45 18 08/29/18 04:43 113 H 98 08/29/18 04:38 143 H 97 08/29/18 04:34 118 H 117/62 08/29/18 04:33 100 H 97 08/29/18 04:30 20 08/29/18 04:28 123 H 98 08/29/18 04:23 104 H 97 08/29/18 04:20 127 H 140/55 L 08/29/18 04:18 133 H 94 08/29/18 04:15 18 08/29/18 04:13 147 H 96 08/29/18 04:08 122 H 97 08/29/18 04:05 139 H 86 L 08/29/18 04:04 127 H 127/59 L 08/29/18 04:03 128 H 96 08/29/18 04:00 120 H 20 91 08/29/18 03:58 141 H 98 08/29/18 03:53 115 H 96 08/29/18 03:49 131 H 120/58 L 08/29/18 03:48 117 H 98 08/29/18 03:43 119 H 98 08/29/18 03:42 37.4 C 08/29/18 03:38 104 H 98 08/29/18 03:35 105 H 129/65 08/29/18 03:33 107 H 98 08/29/18 03:30 16 08/29/18 03:28 107 H 97 08/29/18 03:23 101 H 98 08/29/18 03:19 104 H 116/61 08/29/18 03:18 102 H 98 08/29/18 03:13 108 H 98 08/29/18 03:10 37.6 C H 08/29/18 03:08 100 H 98 08/29/18 03:04 100 H 115/60 08/29/18 03:03 100 H 97 08/29/18 03:00 18 08/29/18 02:58 108 H 98 08/29/18 02:53 103 H 98 08/29/18 02:48 107 H 125/70 98 08/29/18 02:43 105 H 97 08/29/18 02:38 105 H 98 08/29/18 02:35 102 H 129/74 08/29/18 02:33 102 H 98 08/29/18 02:30 18 08/29/18 02:28 104 H 99 08/29/18 02:23 104 H 99 08/29/18 02:22 36.8 C 08/29/18 02:18 106 H 128/63 99 08/29/18 02:13 97 H 99 08/29/18 02:08 102 H 98 08/29/18 02:04 105 H 121/56 L 08/29/18 02:03 97 H 98 08/29/18 02:00 18 08/29/18 01:58 123 H 99 08/29/18 01:53 105 H 100 08/29/18 01:49 93 H 123/61 08/29/18 01:48 109 H 91 08/29/18 01:43 92 H 98 08/29/18 01:38 96 H 99 08/29/18 01:33 90 99 08/29/18 01:30 20 08/29/18 01:28 101 H 98 08/29/18 01:23 98 H 97 08/29/18 01:20 94 H 124/73 08/29/18 01:18 101 H 97 08/29/18 01:13 97 H 97 08/29/18 01:08 95 H 97 08/29/18 01:03 94 H 126/73 97 08/29/18 01:00 18 08/29/18 00:58 90 97 08/29/18 00:53 89 99 08/29/18 00:50 37.0 C 08/29/18 00:49 101 H 131/77 08/29/18 00:48 102 H 99 08/29/18 00:43 93 H 100 08/29/18 00:38 90 97 08/29/18 00:34 88 116/65 08/29/18 00:33 85 97 08/29/18 00:30 18 08/29/18 00:28 86 97 08/29/18 00:23 89 97 08/29/18 00:19 88 116/68 08/29/18 00:18 88 98 08/29/18 00:13 96 H 99 08/29/18 00:08 95 H 98 08/29/18 00:04 93 H 134/74 08/29/18 00:03 94 H 99 08/29/18 00:00 16 08/28/18 23:58 99 H 98 08/28/18 23:53 100 H 97 08/28/18 23:49 99 H 128/75 08/28/18 23:48 95 H 96 08/28/18 23:43 100 H 98 08/28/18 23:38 96 H 98 08/28/18 23:35 91 H 131/74 08/28/18 23:33 93 H 98 08/28/18 23:30 16 08/28/18 23:28 97 H 98 08/28/18 23:23 91 H 98 08/28/18 23:20 90 125/76 08/28/18 23:18 91 H 99 08/28/18 23:15 18 08/28/18 23:13 109 H 97 08/28/18 23:08 101 H 99 08/28/18 23:03 87 110/59 L 98 08/28/18 23:00 36.7 C 18 08/28/18 22:58 86 97 08/28/18 22:53 94 H 97 08/28/18 22:48 82 117/64 97 08/28/18 22:43 84 97 08/28/18 22:38 96 H 98 08/28/18 22:35 95 H 115/66 08/28/18 22:33 100 H 97 08/28/18 22:28 87 97 08/28/18 22:23 87 98 08/28/18 22:18 93 H 99 08/28/18 22:13 93 H 98 08/28/18 22:12 99 H 139/75 08/28/18 22:08 108 H 98 08/28/18 22:03 108 H 98 08/28/18 21:58 103 H 97 08/28/18 21:56 106 H 134/64 08/28/18 21:53 112 H 96 05 21:48 110 H 97 05 21:43 105 H 98 05 21:42 105 H 129/63 08/28/18 21:38 105 H 97 05 21:33 95 H 98 08/28/18 21:28 105 H 97 08/28/18 21:26 95 H 118/64 08/28/18 21:23 108 H 97 08/28/18 21:18 107 H 98 08/28/18 21:13 112 H 99 08/28/18 21:11 99 H 134/78 08/28/18 21:08 96 H 97 08/28/18 21:03 99 H 97 08/28/18 20:58 87 98 08/28/18 20:57 85 108/60 08/28/18 20:53 84 99 08/28/18 20:48 91 H 97 08/28/18 20:43 84 99 08/28/18 20:42 82 118/64 08/28/18 20:38 84 97 08/28/18 20:33 96 H 98 08/28/18 20:28 90 98 08/28/18 20:26 84 123/63 08/28/18 20:23 83 99 08/28/18 20:18 100 H 98 08/28/18 20:13 97 H 98 08/28/18 20:11 93 H 138/63 08/28/18 20:08 100 H 97 08/28/18 20:03 106 H 98 08/28/18 20:01 37.0 C 18 08/28/18 19:58 98 H 132/65 97 08/28/18 19:53 93 H 97 08/28/18 19:48 89 98 08/28/18 19:43 95 H 97 08/28/18 19:41 92 H 126/67 05 19:38 91 H 97 08/28/18 19:33 103 H 98 08/28/18 19:28 102 H 98 05 19:27 96 H 129/75 08/28/18 19:23 98 H 97 05 19:18 96 H 99 08/28/18 19:13 98 H 99 08/28/18 19:12 95 H 153/65 H 08/28/18 19:08 95 H 98 08/28/18 19:03 94 H 98 08/28/18 18:58 101 H 98 08/28/18 18:55 107 H 129/73 08/28/18 18:53 89 133/66 97 08/28/18 18:51 98 H 139/69 08/28/18 18:49 115 H 133/79 08/28/18 18:48 113 H 98 08/28/18 18:47 104 H 137/79 08/28/18 18:45 110 H 132/76 08/28/18 18:43 105 H 135/82 97 08/28/18 18:41 112 H 126/78 08/28/18 18:39 100 H 128/71 08/28/18 18:38 105 H 98 08/28/18 18:37 98 H 132/73 08/28/18 18:36 102 H 138/77 08/28/18 18:33 102 H 99 08/28/18 18:28 111 H 97 08/28/18 18:27 112 H 150/84 H 08/28/18 18:23 113 H 88 L 08/28/18 18:22 104 H 150/79 H 08/28/18 18:18 103 H 98 08/28/18 18:17 104 H 151/85 H 08/28/18 18:13 105 H 98 08/28/18 18:08 109 H 99 08/28/18 18:03 110 H 96 08/28/18 17:58 96 H 98 08/28/18 17:54 37.0 C 20 08/28/18 17:53 103 H 96 08/28/18 17:48 107 H 96 08/28/18 17:46 91 H 139/77 08/28/18 17:43 94 H 98 08/28/18 17:38 100 H 98 08/28/18 17:34 102 H 136/71 08/28/18 17:33 104 H 99 08/28/18 15:30 37.0 C 18 08/28/18 15:04 36.7 C 112 H 18 136/90 08/28/18 14:48 112 H 136/90 08/28/18 14:42 111 H 128/82 Pain Intensity Right Lower Abdomen: Pain Intensity: 4 Left Pelvic: Pain Intensity: 5 Notes Mental Status: alert / awake / arousable and participated in evaluation Nausea / Vomiting: adequately controlled Pain: adequately controlled Airway Patency, RR, SpO2: stable & adequate BP & HR: stable & adequate Hydration State: stable & adequate Neuraxial Anesthesia: was administered and sensory block is resolving Anesthetic Complications: no major complications apparent and Pt Satisfied with anesthetic care Notes: epidural catheter removed. Tip intact.
[2018-08-29] MEDS: SIMETHICONE 80 MG CHEW PO SCH ×2 (17:11→20:40)
[2018-08-29] MEDS: DOCUSATE SODIUM 100 MG CAP PO SCH (20:40)
[2018-08-30] MEDS ORDERED: MEPERIDINE HCL 50 MG/ML CARP IV PRN (01:56)
[2018-08-30] MEDS ORDERED: KETOROLAC 30 MG/ML VIAL IV PRN (01:56)
[2018-08-30] MEDS ORDERED: PROMETHAZINE HCL 25 MG in SODIUM CHLORIDE 0.9% 50 ML IV PRN (01:56)
[2018-08-30] MEDS ORDERED: DiphenhydrAMINE HCL 50 MG/ML VIAL IV PRN (01:56)
[2018-08-30] MEDS ORDERED: CITRIC ACID/SODIUM CITRATE 15 ML UDC PO SCH (06:00)
[2018-08-30 07:24] LABS: Basophils # (auto) 0.02 K/uL (0-0.2); Basophils % (auto) 0.2 %; Eosinophils # (auto) 0.03 K/uL (0-0.5); Eosinophils % (auto) 0.2 %; Hematocrit (blood only) 23.3 % (37-47); Hemoglobin 8.1 g/dL (12.0-16.0); Immature Granulocytes # (auto) 0.05 K/uL (0.00-0.02); Immature Granulocytes % (auto) 0.4 %; Lymphocytes # (auto) 1.34 K/uL (1.2-3.4); Lymphocytes % (auto) 10.1 %; Mean Corpuscular Hgb Conc 34.8 g/dL (32-36); Mean Corpuscular Volume 84.1 fL (80-100); Mean Platelet Volume 10.6 fL (7.4-10.4); Monocytes # (auto) 0.98 K/uL (0.11-0.59); Monocytes % (auto) 7.4 %; Neutrophils # (auto) 10.79 K/uL (1.4-6.5); Neutrophils % (auto) 81.7 %; Platelet Count 194 K/uL (130-400); RDW Coefficient of Variation 13.6 % (11.5-14.5); RDW Standard Deviation 41.8 fL (36.4-46.3); Red Blood Count 2.77 M/uL (4.2-5.4); White Blood Count 13.21 K/uL (4.8-10.8)
--- NOTE | 2018-08-30 07:57 | Obstetrical Progress Note ---
Date of Service August 30, 2018 Assessment & Plan (1) SROM (spontaneous rupture of membranes): - H/H consistent with post-op - will start Fe - begin ambulation - routine care, doing well Subjective Ambulation: ambulating normally Diet Tolerance:: regular diet Feeding Type:: breast feeding Physical Exam Vital Signs (Past 24 Hours) Last Vital Signs Temp 98.6 F 08/30/18 01:10 Pulse 95 H 08/30/18 01:10 Resp 18 08/30/18 01:10 BP 107/61 08/30/18 01:10 Pulse Ox 99 08/30/18 01:10 Constitutional WD/WN, vitals as above Respiratory Auscultation: lungs clear to auscultation bilaterally Cardiovascular RRR, no murmur, no edema Extremities: no calf tenderness Gastrointestinal (Abdomen) Incision intact, appropriate post-op tenderness
[2018-08-30] MEDS ORDERED: FERROUS SULFATE 325 MG TAB PO SCH (08:00)
[2018-08-30] MEDS: IBUPROFEN 600 MG TAB PO PRN ×3 (08:47→23:07)
[2018-08-30] MEDS: OXYCODONE/ACETAMINOPHEN 5mg/325mg TAB PO PRN ×3 (08:48→23:07)
[2018-08-30] MEDS: SIMETHICONE 80 MG CHEW PO SCH ×3 (08:49→21:20)
[2018-08-30] MEDS: PRENATAL VITAMIN 1 TAB PO SCH (08:49)
[2018-08-30] MEDS: DOCUSATE SODIUM 100 MG CAP PO SCH ×2 (08:49→21:20)
--- NOTE | 2018-08-30 13:14 | Anesthesiology Progress Note ---
Date of Service August 30, 2018 Anesthesia Post Procedure Vital Signs Vital Signs: Temp Pulse Resp BP Pulse Ox 08/30/18 08:00 37.1 C 99 H 18 109/70 98 08/30/18 01:10 37.0 C 95 H 18 107/61 99 08/30/18 00:15 16 96 08/29/18 23:15 18 94 08/29/18 22:25 95 H 16 L 08/29/18 21:15 18 100 08/29/18 20:15 20 99 08/29/18 19:30 36.8 C 96 H 18 111/68 98 08/29/18 18:30 18 97 08/29/18 17:10 36.7 C 86 20 117/74 98 08/29/18 16:40 18 98 08/29/18 15:15 18 95 08/29/18 14:45 16 96 08/29/18 13:30 20 98 Pain Intensity Right Lower Abdomen: Pain Intensity: 4 Left Pelvic: Pain Intensity: 5 Transfer of Care Handoff Completed per policy Notes Mental Status: alert / awake / arousable Patient Amnestic to Procedure: Yes Nausea / Vomiting: adequately controlled Pain: adequately controlled Airway Patency, RR, SpO2: stable & adequate BP & HR: stable & adequate Hydration State: stable & adequate Anesthetic Complications: no major complications apparent and Pt Satisfied with anesthetic care
[2018-08-31 07:06] LABS: Hematocrit (blood only) 22.6 % (37-47); Hemoglobin 7.6 g/dL (12.0-16.0)
--- NOTE | 2018-08-31 07:11 | Obstetrical Progress Note ---
Date of Service August 31, 2018 Assessment & Plan (1) S/P : 28yo with POD2 s/p for failure to progress -Vital signs WNL bp 120/76 T37.3, -Hemoglobin 8.1 on POD1 down from 10.2 on admission. no si/sx of anemia. -Pt is doing clinically well -Continue to encourage ambulation as tolerated, Monitor and control pain with Motrin prn, -Continue diet as tolerated. -incision Clean Dry and intact -Continue to support and encourage breast feeding -no more n/v tolerating diet -Counseled patient on discharge instructions including Vaginal bleeding, fevers, followup, lifting restrictions, breast feeding, vitamins, and nothing in the vagina for 6 weeks. Pt was agreeable -Plan for d/c today if cleared by attending and if baby is cleared by pediatrics Supervising Physician Co-Signing Physician Notes Resident Physician Supervision Note: I was present with Dr. Hernandez during the history and exam. I discussed the case with the resident and agree with the findings and plan as documented in the note. Any exceptions or clarifications are listed here: POD2 doing well, Plans for DC home today. Documented By: Maggi Mccullough, FACOOG Subjective Pt sitting up in bed this morning watching tv in no acute distress. Patient is tolerating her diet, ambulating, passing gas, passed tov, voiding on her own, still no bm. Reports moderate lochia. Denies H/A, chest pain, palpitations and uti syx. Answered all questions, no concerns at present, pain is well controlled Physical Exam Physical Exam: Constitutional: WD/WN, vitals as above no acute distress Eyes: normal visual hernandez by confrontation Neck: normal visual inspection Respiratory: normal respiratory effort, lungs clear to auscultation Cardiovascular: RRR, no murmur, no edema Heart Sounds: normal S1 and normal S2 Extremities: no calf tenderness Gastrointestinal (Abdomen): Uterus firm and below the umbilicus, surgical site was clean dry and intact Results & Data Vital Signs (Past 12 Hours) Vital Signs Temp Pulse Resp BP Pulse Ox 08/30/18 23:05 37.3 C 100 H 14 120/76 97 08/30/18 19:30 36.6 C 98 H 16 119/73 97 Laboratory Results 08/31/18 08/30/18 Range/Units 06:13 07:02 WBC 13.21 H (4.8-10.8) K/uL RBC 2.77 L (4.2-5.4) M/uL Hgb 7.6 L 8.1 L (12.0-16.0) g/dL Hct 22.6 L 23.3 L (37-47) % MCV 84.1 (80-100) fL MCH 29.2 (25-34) pg MCHC 34.8 (32-36) g/dL RDW Std Deviation 41.8 (36.4-46.3) fL RDW Coeff of Michael 13.6 (11.5-14.5) % Plt Count 194 (130-400) K/uL MPV 10.6 H (7.4-10.4) fL Immature Gran % (Auto) 0.4 % Neut % (Auto) 81.7 % Lymph % (Auto) 10.1 % [place] % (Auto) 7.4 % Eos % (Auto) 0.2 % Baso % (Auto) 0.2 % Immature Gran # (Auto) 0.05 H (0.00-0.02) K/uL Neut # (Auto) 10.79 H (1.4-6.5) K/uL Lymph # (Auto) 1.34 (1.2-3.4) K/uL [place] # (Auto) 0.98 H (0.11-0.59) K/uL Eos # (Auto) 0.03 (0-0.5) K/uL Baso # (Auto) 0.02 (0-0.2) K/uL Medications Administered Current Inpatient Medications Acetaminophen (Ofirmev) 1,000 mg IV Q8 PRN PRN Reason: Pain Stop: 09/28/18 07:53 Last Admin: 08/29/18 09:21 Dose: 1,000 mg Documented by: Benzocaine (Dermoplast Pain Relieving [place]) 1 appln EXT UD PRN PRN Reason: use on skin as needed Stop: 09/28/18 07:50 Cocaine HCl (Supercream 0.870%) 1 gm EXT UD PRN PRN Reason: hemmorrhoidal inflammation Stop: 09/12/18 07:50 Diphenhydramine HCl (Benadryl) 25 mg IV QID PRN PRN Reason: Itching Stop: 09/29/18 01:55 Diphenhydramine HCl (Benadryl Capsule) 25 mg PO QID PRN PRN Reason: Itching Stop: 09/29/18 01:55 Docusate Sodium (Colace) 100 mg PO BID KATHI Stop: 09/28/18 08:59 Last Admin: 08/30/18 21:20 Dose: 100 mg Documented by: Ferrous Sulfate (Feosol) 325 mg PO BIDM KATHI Stop: 09/29/18 07:59 Hydrocortisone (Anusol Hc) 25 mg DC BID PRN PRN Reason: Hemorrhoids Stop: 09/28/18 07:50 Oxytocin (Pitocin) 30 units in 500 mls @ 333.333 mls/hr IV .Q1H30M PRN; Protocol PRN Reason: Bleeding Control Stop: 09/27/18 15:07 Lactated Ringer's (Lr) 1,000 mls @ 125 mls/hr IV .Q8H KATHI Stop: 09/28/18 07:07 Last Infusion: 08/29/18 21:53 Dose: 125 mls/hr Documented by: Lactated Ringer's (Lr) 1,000 mls @ 125 mls/hr IV .Q8H KATHI Stop: 09/28/18 07:59 Promethazine HCl 25 mg/ Sodium (Chloride) 51 mls @ 204 mls/hr IV Q4H PRN PRN Reason: Nausea And Vomiting Stop: 09/29/18 01:55 Ibuprofen (Motrin) 600 mg PO Q4H PRN PRN Reason: Pain Stop: 09/29/18 01:55 Last Admin: 08/30/18 23:07 Dose: 600 mg Documented by: Ketorolac Tromethamine (Toradol) 30 mg IV Q6H PRN PRN Reason: Pain Stop: 09/04/18 01:55 Meperidine HCl (Demerol) 50 - 75 mg IV Q4H PRN PRN Reason: Pain Stop: 09/13/18 01:55 Ondansetron HCl (Zofran) 4 mg IV Q4H PRN PRN Reason: Nausea And Vomiting Stop: 09/28/18 07:50 Oxycodone/Acetaminophen (Percocet 5mg/325mg) 1 - 2 tab PO Q4H PRN PRN Reason: Pain Stop: 09/13/18 01:55 Last Admin: 08/30/18 23:07 Dose: 1 tab Documented by: Prenat Multivit/[place]/Iron/Folic Ac ( Vitamin) 1 tab PO QAM [facility] Stop: 09/28/18 08:59 Last Admin: 08/30/18 08:49 Dose: 1 tab Documented by: Simethicone (Mylicon) 80 mg PO QID [facility] Stop: 09/28/18 08:59 Last Admin: 08/30/18 21:20 Dose: 80 mg Documented by: Resident Activity Tracking Resident Involvement: Resident Care Provided Care Provided: Adult Hospital Medicine
[2018-08-31] MEDS: IBUPROFEN 600 MG TAB PO PRN ×2 (08:13→13:27)
[2018-08-31] MEDS: OXYCODONE/ACETAMINOPHEN 5mg/325mg TAB PO PRN ×2 (08:13→13:26)
[2018-08-31] MEDS: PRENATAL VITAMIN 1 TAB PO SCH (08:14)
[2018-08-31] MEDS: DOCUSATE SODIUM 100 MG CAP PO SCH (08:14)
[2018-08-31] MEDS: SIMETHICONE 80 MG CHEW PO SCH ×2 (08:21→13:27)
--- NOTE | 2018-09-04 08:07 | Discharge Summary ---
Date of Service September 04, 2018 Discharge Data Consultations 08/28/18 15:08 Consult Anesthesiology Stat Procedures Performed Operation Date: 08/29/18 06:10 Actual Procedures p Section in LD, delivery of live female child at 0715 - Sharon Mcmanus MD Hospital Course (1) PROM (premature rupture of membranes): Patient admitted with PROM/IOL, reached second stage of labor and pushed 2 hours without effecting delivery. Underwent uncomplicated for failure to progress. Patient had a normal postoperative course and was discharged home on POD#2.
== END 2018-08-31 13:55 | disposition home or self-care (01) | DRG 788 ==
LOC: 4S1 14:32 → OPB 14:32 → 4S1 15:08 → 4S2 08-29 11:09

== ENCOUNTER 2024-06-26 23:01 | Inpatient (IN) ==
[2024-06-26] MEDS ORDERED: Nursing to Pharmacy Communication SCH (23:30)
[2024-06-26] MEDS: LACTATED RINGER'S 1,000 ML IV SCH (23:32)
[2024-06-26] MEDS: ACETAMINOPHEN 500 MG TAB PO STA (23:35)
[2024-06-26] MEDS: CITRIC ACID/SODIUM CITRATE 15 ML UDC PO STA (23:35)
[2024-06-26] MEDS ORDERED: PHENYLEPHRINE HCL 25 MG/250 ML NSS IV ONE (23:44)
[2024-06-26] MEDS ORDERED: ONDANSETRON INJ 2 MG/ML 2 ML VIAL ONE (23:44)
[2024-06-26] MEDS ORDERED: KETOROLAC 30 MG/ML VIAL ONE (23:44)
[2024-06-26] MEDS ORDERED: OXYTOCIN 10 UNITS/ML VIAL ONE (23:44)
[2024-06-26] MEDS ORDERED: DEXAMETHASONE SOD INJ 4 MG/ML VIAL ONE (23:44)
[2024-06-26] MEDS ORDERED: MoRPHine SULFATE PF 1 MG/ML 10 ML AMP/VIAL ONE (23:45)
[2024-06-26] MEDS ORDERED: fentaNYL citrate PF 100 MCG/2 ML VIAL ONE (23:46)
--- NOTE | 2024-06-26 23:48 | History & Physical Report ---
Date of Service June 26, 2024 Assessment & Plan (1) Previous section complicating , antepartum condition or complication: Plan: Intrauterine at 38-6/7 weeks in active labor with spontaneous rupture membranes prior section who presents for repeat section with bilateral salpingectomies for unwanted fertility. The procedure and its risks have been reviewed with the patient and her and all questions have been answered to their satisfaction they are willing to proceed. (2) Unwanted fertility: Admission and Anticipated Discharge Date Admission Date: June 26, 2024 History of Present Illness Primary Care Provider: Katelyn Ludwig MD Patient is a 34-year-old 2 para 1-0-0-1 female EDC of 07/04/2024 who presents at 38 6/7 weeks with spontaneous rupture membranes for clear fluid and spontaneous onset of labor. has been complicated by GDM diet- controlled and LGA fetus based on most recent growth scan. Blood sugars have been well-controlled. GBS is positive in her urine culture. Blood type is AB+. Rubella is equivocal. Prior complicated by primary section for failure to progress. Patient is requesting repeat section with bilateral salpingectomies because of unwanted fertility and multiparity. Allergies Allergy/AdvReac Type Severity Reaction Status Date / Time miconazole [From Monistat 7] Allergy Severe severe Verified 06/18/24 10:18 localized itching, irritation Home Medications Medication Instructions Recorded Confirmed Type prenat.vits,katty,ksa-tcny-tcxkz 1 tab PO QAM 11/10/23 06/26/24 History acetone (urine) test (Ketone Urine #50 ea 12/08/23 06/18/24 Rx Test strips) blood sugar diagnostic (OneTouch #150 ea 12/08/23 06/18/24 Rx Verio test strips) blood-glucose meter (OneTouch #1 ea 12/08/23 06/18/24 Rx Verio Reflect Meter) lancets 33 gauge (OneTouch Delica #150 ea 12/08/23 06/18/24 Rx Plus Lancet) amoxicillin 875 mg-potassium 1 tab PO BID sinus infection 06/14/24 06/26/24 History clavulanate 125 mg tablet nystatin 500,000 unit tablet 500,000 unit PO QID PRN vaginal 06/14/24 06/26/24 History yeast infection Patient History Medical History (Updated 06/26/24 @ 23:46 by Eveline Hernandez MD, FACOG) Gestational diabetes mellitus 2020 with first - diet controlled treated as a gestational diabetic with current , diet controlled Surgical History (Updated 06/26/24 @ 23:46 by Eveline Hernandez MD, FACOG) PONV (postoperative nausea and vomiting) with (2019) S/P 2019 History of tooth extraction Family History Grandfather (Paternal) Diabetes Coronary heart disease Brother No problems noted. Aunt Ovarian cancer maternal Mother FH: uterine cancer Gestational diabetes Family/Other Colorectal cancer maternal great grandmother Denies family history of Prostate cancer Myocardial infarction Breast cancer Social History (Updated 06/26/24 @ 23:18 by Gabriella Henson, MONICA) Smoking Status: Never smoker Tobacco Type: Cigarettes Age Started Using Tobacco: 16; Age Quit Using Tobacco: 19; packs per day: 0.01; Second Hand Exposure: No; Do You Dip or Chew Tobacco: No; Hx Alcohol Use: No Hx Substance Use: No Preferred Language: Swedish Communication Ability: Effective Visual Impairment: Limited Hearing Ability: Normal Grocery Supervisor Required: No Beliefs That Will Affect Care: None marital status: marital status details: Silverio Mueller (37) [phone] Current Living Situation: Spouse Current Living Situation Comment: lives with spouse and daughter, 3 dogs current occupational status: previously employed 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 Other Information That Helps Us Care for You: No Feels Safe at Home: Yes Safety Concerns: Feels Safe At This Time Childhood Exposure to Second-Hand Smoke: No Diet: regular Dental Care, Regularly: Yes Physical Activity Frequency: 3-4 Times per Week Seatbelt Use: always Sunscreen Use: Yes Assistive Devices: Glasses Review of Systems All systems reviewed & are unremarkable except as noted in HPI & below Physical Exam Constitutional: WD/WN, vitals as above Respiratory: normal respiratory effort, lungs clear to auscultation Cardiovascular: RRR, no murmur, no edema Psychiatric: A+Ox3, euthymic affect Genitourinary: OB Exam Abdomen: + vertex and + regular contractions (Q2 minutes and moderate) Manual OB Exam: + amniotic fluid clear (large amount) OB Exam Monitor Tracing: + external FHT monitor used, + external uterine monitor used, + category I and + normal FHT variability Results & Data Vital Signs (Past 12 Hours) Vital Signs Temp Pulse Resp BP 06/26/24 23:22 96 H 118/72 06/26/24 23:19 97.7 F 96 H 18 118/72 Code Status & VTE Plan VTE Prophylaxis Plan VTE Prophylaxis will be ordered: Yes Coding Level of Care Code 13430 INT INP/OBS CARE 140MIN Diagnoses Previous section complicating , antepartum condition or complication O34.219 Unwanted fertility Z30.09
[2024-06-26 23:51] LABS: Hematocrit (blood only) 33.4 % (37.0-47.0); Hemoglobin 11.1 g/dl (12.0-16.0); Mean Corpuscular Hemoglobin 27.3 pg (25.0-34.0); Mean Corpuscular Hgb Conc 33.2 g/dL (32.0-36.0); Mean Corpuscular Volume 82.3 fL (80.0-100.0); Mean Platelet Volume 11.9 fL (9.4-12.4); Platelet Count 179 K/uL (130-400); RDW Coefficient of Variation 13.7 % (11.5-14.5); Red Blood Count 4.06 M/uL (4.20-5.40); White Blood Count 9.89 K/ul (4.8-10.8)
[2024-06-26] MEDS: ceFAZolin 2000MG 2,000 MG/15 ML SYR IV STA (23:51)
[2024-06-27] MEDS: AZITHROMYCIN 500 MG/255 ML BAG IV STA (00:07)
--- NOTE | 2024-06-27 00:15 | Anesthesiology Consultation ---
Date of Service June 27, 2024 Assessment & Plan (1) Encounter for pre-operative examination: Chart Review Chart Review: Acceptable Risk for Surgery and Patient NOT seen in Pre Admission Testing Consults Requested none History Surgery Operation Date: 06/26/24 23:55 Proposed Procedures p Section in LD - Eveline Hernandez MD, FACOG Height/Weight Height: 5 ft 3 in Weight: 85.366 kg Allergies Allergy/AdvReac Type Severity Reaction Status Date / Time miconazole [From Monistat 7] Allergy Severe severe Verified 06/18/24 10:18 localized itching, irritation Medications Home Medications Medication Instructions Recorded Confirmed Last Taken prenat.vits,katty,nvk-ilhn-mgica 1 tab PO QAM 11/10/23 06/26/24 Unknown acetone (urine) test (Ketone Urine #50 ea 12/08/23 06/18/24 Unknown Test strips) blood sugar diagnostic (OneTouch #150 ea 12/08/23 06/18/24 Unknown Verio test strips) blood-glucose meter (OneTouch #1 ea 12/08/23 06/18/24 Unknown Verio Reflect Meter) lancets 33 gauge (OneTouch Delica #150 ea 12/08/23 06/18/24 Unknown Plus Lancet) amoxicillin 875 mg-potassium 1 tab PO BID sinus infection 06/14/24 06/26/24 06/16/24 clavulanate 125 mg tablet nystatin 500,000 unit tablet 500,000 unit PO QID PRN vaginal 06/14/24 06/26/24 06/16/24 yeast infection Past Medical History Medical History Gestational diabetes mellitus 2019 with first - diet controlled treated as a gestational diabetic with current , diet controlled Past Family History Family History Grandfather (Paternal) Diabetes Coronary heart disease Brother No problems noted. Aunt Ovarian cancer maternal Mother FH: uterine cancer Gestational diabetes Family/Other Colorectal cancer maternal great grandmother Denies family history of Prostate cancer Myocardial infarction Breast cancer Past Surgical History Surgical History PONV (postoperative nausea and vomiting) with (2019) S/P 2019 History of tooth extraction Social History Smoking Status: Never smoker Do You Dip or Chew Tobacco: No Hx Alcohol Use: No Hx Substance Use: No substance use type: does not use Physical Exam Vital Signs Last Vital Signs Temp 97.7 F 06/26/24 23:19 Pulse 96 H 06/26/24 23:22 Resp 18 06/26/24 23:19 BP 118/72 06/26/24 23:22 Testing Laboratory Results 06/26/24 23:33
[2024-06-27] MEDS ORDERED: ePHEDrine sulfate 50 MG/ML AMP IV PRN ×2 (00:17→05:23)
[2024-06-27] MEDS ORDERED: NALBUPHINE HCL INJ 10 MG/ML AMP IV PRN (00:17)
[2024-06-27] MEDS ORDERED: diphenhydrAMINE 50 MG/ML VIAL IV PRN ×2 (00:17→18:17)
[2024-06-27] MEDS: MoRPHine SULFATE PF 1 MG/ML 10 ML AMP/VIAL INT SPINAL ONE (00:17)
[2024-06-27] MEDS ORDERED: NALOXONE HCL 0.08 MG in SYRINGE 1.8 ML IV PRN (00:17)
[2024-06-27] MEDS ORDERED: PROMETHAZINE 6.25 MG/50.25 ML BAG IV PRN (00:17)
[2024-06-27] MEDS ORDERED: NALOXONE HCL 1 MG in SODIUM CHLORIDE 0.9% 1,000 ML IV PRN (00:17)
[2024-06-27] MEDS ORDERED: NALOXONE HCL 0.4 MG/1 ML VIAL/CARP IV PRN (00:17)
[2024-06-27] MEDS ORDERED: ePHEDrine sulfate 50 MG/5 ML SYR ONE ×2 (00:28→05:18)
[2024-06-27] MEDS ORDERED: NO NARCOTICS OR SEDATIVES SCH (00:30)
[2024-06-27] MEDS ORDERED: DC INTRASPINAL MORPHINE SCH (00:30)
[2024-06-27] MEDS ORDERED: SODIUM CHLORIDE 0.9% 100 ML IV PRN ×4 (00:37→17:01)
[2024-06-27] MEDS ORDERED: SODIUM CHLORIDE 0.9% 50 ML IV PRN ×4 (00:37→17:01)
[2024-06-27] MEDS: KETOROLAC 30 MG/ML VIAL IV SCH (01:00)
[2024-06-27] MEDS ORDERED: HYDROCORTISONE ACETATE 25 MG SUPP PR PRN (01:21)
[2024-06-27] MEDS ORDERED: CALCIUM CARBONATE 500 MG CHEWABLE TAB PO PRN (01:21)
[2024-06-27] MEDS ORDERED: MAGNESIUM HYDROXIDE SUSP 30 ML UDC PO PRN (01:21)
[2024-06-27] MEDS ORDERED: SENNA 8.6 MG TAB PO PRN (01:21)
[2024-06-27] MEDS ORDERED: BENZOCAINE 20% SPRY 85 APPLN/85 GM CAN EXT PRN (01:21)
--- NOTE | 2024-06-27 01:24 | Post Operative Brief Note ---
Immediate Post Op Note Date of Surgery June 27, 2024 Pre & Post Diagnosis Operation Date: 06/26/24 23:55 Pre-Op Diagnosis: 1. iup at term 2. rupture of membranes 3. desires repeat 4. tubal sterization for undesired fertility Post-Op Diagnosis: 1. same 2. delivery of live male child at 0023 I identified the patient and participated in the time-out.: Yes Procedure Operation Date: 06/26/24 23:55 Actual Procedures p Section in LD - Eveline Hernandez MD, FACOG Surgeon Eveline Hernandez MD, FACOG Job Placement Counselor Angelica Hernandez RN Quantitative Blood Loss (QBL) 893 Findings Consistent with Post-Op Diagnosis gravid uterus consistent with term bilateral tubes and ovaries grossly normal Specimens Specimen Description: cord blood placenta-hold right fallopian tube left fallopian tube Drains Buchanan Catheter Anesthesia Type Spinal Complications none Disposition Accompanied Patient To Recovery: Yes Disposition: L&D
--- NOTE | 2024-06-27 01:36 | Operative Report ---
Post Operative Report Pre & Post Diagnosis Operation Date: 06/26/24 23:55 Pre-Op Diagnosis: 1. iup at term 2. rupture of membranes 3. desires repeat 4. tubal sterization for undesired fertility Post-Op Diagnosis: 1. same 2. delivery of live male child at 0023 I identified the patient and participated in the time-out.: Yes Procedure Operation Date: 06/26/24 23:55 Actual Procedures p Section in LD - Eveline Hernandez MD, FACOG Bilateral salpingectomies Surgeon Eveline Hernandez MD, FACOG Tour Conductor Angelica Hernandez RN Quantitative Blood Loss (QBL) 893 Findings Consistent with Post-Op Diagnosis Specimens Placenta to hold Drains Buchanan catheter to straight drainage, clear urine at the end of the case Anesthesia Type Spinal Complications none Disposition Accompanied Patient To Recovery: Yes Disposition: L&D Indications Uterine at 38-6/7 weeks with spontaneous rupture membranes and spontaneous onset of labor. Prior section requesting repeat section Unwanted fertility requesting permanent sterilization.. Description of Procedure After the patient received adequate subarachnoid block she was prepped and draped in usual sterile fashion. Low transverse skin incision was made with a scalpel and carried the fascia with the same scalpel. Fascial incision was then extended with Perez scissors and the fascia grasped with Estrellita clamps and the underlying rectus muscle bluntly sharply dissected dissected off of the overlying fascia. The peritoneum was entered bluntly. After dividing the rectus muscles the bladder was taken down off of the anterior surface of the uterus with Metzenbaum scissors and placed behind the bladder blade. The lower uterine segment was entered with a scalpel and extended transversely by stretching the incision in a cephalad and caudad direction. Cleared fluid was noted upon entering the uterus. The it was delivered from the vertex present Tatian with moderate fundal pressure. After the head was delivered the rest of the infant delivered easily. He was vigorous crying and moving all 4 limbs. Cord was clamped and cut and the infant was handed off to Dr. Mckeon who was in attendance his tv production assistant along with the nursery crew. The placenta was expressed intact with a three-vessel cord. The uterus was then exteriorized to cover the clean lap sponge. The uterine cavity was explored and found be free of any retained membranes or tissue. The uterus was closed in 2 layers in a running locking imbricating fashion. Hemostasis was noted to be excellent on the uterine incision. Attention was then turned to the salpingectomies. The right fallopian tube was grasped with Ken clamps and the tube was removed in its entirety with the LigaSure device. The left fallopian tube was then identified to its fimbriated end as well grasped with Ken clamps and removed in its entirety with the LigaSure device. Hemostasis noted be excellent at the tubal sites. Posterior cul-de-sac was suctioned for small amount of blood. Uterus was then gently placed back inside the abdominal cavity. The salpingectomy sites were examined once more and found to have excellent hemostasis. The rectus muscle were then brought together on the midline with individual stitches of 0 Monocryl. The fascia was closed in a running fashion with 0 Vicryl. After irrigating the subcutaneous layer, the skin edges were reapproximated in a subcuticular fashion with 4-0 Vicryl. Mother and infant were in stable condition upon arrival back in labor delivery. I attest to the content of the Intraoperative Record and any orders documented therein. Any exceptions are noted below. OB Procedure Charges 26697 26023 Add on Tubal for C/S (bilateral salpingectomies)
[2024-06-27] MEDS: METHYLERGONOVINE MALEATE 0.2 MG/ML AMP IM STA (01:44)
[2024-06-27] MEDS: miSOPROStoL 200 MCG TAB PR ONE (01:47)
--- NOTE | 2024-06-27 01:56 | Anesthesiology Progress Note ---
Date of Service June 27, 2024 Anesthesia Post Procedure Vital Signs Vital Signs: Temp Pulse Resp BP Pulse Ox 06/27/24 01:50 96 H 100 06/27/24 01:45 98 H 99 06/27/24 01:43 88 71/44 L 06/27/24 01:41 89 68/44 L 06/27/24 01:40 93 H 99 06/27/24 01:39 96 H 69/38 L 06/27/24 01:36 100 H 90/55 L 06/27/24 01:35 116 H 100 06/27/24 01:30 100 H 98 06/27/24 01:26 102 H 120/66 06/27/24 01:25 107 H 99 06/26/24 23:22 96 H 118/72 06/26/24 23:19 97.7 F 96 H 18 118/72 Transfer of Care Handoff Completed per policy Notes Mental Status: alert / awake / arousable and participated in evaluation Patient Amnestic to Procedure: Yes Nausea / Vomiting: adequately controlled Pain: adequately controlled Airway Patency, RR, SpO2: stable & adequate BP & HR: stable & adequate Hydration State: stable & adequate Neuraxial Anesthesia: was administered and sensory block is resolving Anesthetic Complications: no major complications apparent and Pt Satisfied with anesthetic care
[2024-06-27] MEDS: CARBOPROST TROMETHAMINE 250 MCG/ML AMPUL IM ONE (01:58)
[2024-06-27] MEDS: OXYTOCIN 20 UNITS/LR 1,002 ML IV SCH (02:05)
[2024-06-27] MEDS: TRANEXAMIC ACID / 0.7% NACL 1,000 MG/100 ML BAG IV STA (02:05)
--- NOTE | 2024-06-27 02:13 | Communication Note ---
Date of Service: June 27, 2024 Called to bedside 20 minutes after patient's arrival back in labor and delivery from the room. Uterus was atonic and QBL was 250 mL to start. Pi tocin rate was increased to 999. She was given 250 mg of Hemabate, 0.2 mg of Methergine and 1000 mg of Cytotec rectally. Uterus was explored and some clots in the fundus were removed initially . Subsequent explorations revealed there was good uterine tone and only the lower uterine segment had clot present. After administration of both the Cytotec rectally and Hemabate, bleeding has slowed significantly. no further clot removed from lower uterine segment. Total immediate QBL was 732 mL. This brings the total QBL to 1625 mL which includes the 893 mL calculated during the section. Patient will also receive 1gm of TXA and 2 u PRBC's.
[2024-06-27] MEDS: LACTATED RINGER'S 1,000 ML IV SCH ×3 (02:48→20:41)
[2024-06-27] MEDS: DIPHTHER/TETAN/PERTUS Vaccine (Tdap, Adol/Adult) 0.5mL IM ONE (02:50)
[2024-06-27] MEDS: SODIUM CHLORIDE 0.9% 1,000 ML IV SCH (02:51)
--- NOTE | 2024-06-27 03:33 | Post Operative Brief Note ---
PG Immediate Post Op with CF Date of Surgery June 27, 2024 Pre & Post Diagnosis Operation Date: 06/26/24 23:55 Pre-Op Diagnosis: 1. iup at term 2. rupture of membranes 3. desires repeat 4. tubal sterization for undesired fertility Post-Op Diagnosis: 1. same 2. delivery of live male child at 0023 Procedure Operation Date: 06/26/24 23:55 Actual Procedures p Section in LD - Eveline Hernandez MD, FACOG Surgeon Eveline Hernandez MD, FACOG Lumber Scaler Angelica Hernandez RN Estimated Blood Loss 893 Specimens Specimen Description: cord blood placenta-hold right fallopian tube left fallopian tube Drains Buchanan Catheter Anesthesia Type Spinal
--- NOTE | 2024-06-27 03:37 | Communication Note ---
Date of Service: June 27, 2024 late note- MARIAM placed at 0200 - good seal initially- blood filling the suction tubing but no further. extra fluid put in to the balloon but blood now leaking around the balloon. patient blood pressure initially stable but now tachycardic. blood currently running. will order FFP and and T&C 2 more units./ will proceed to main OR for probable hysterectomy
[2024-06-27] MEDS ORDERED: fentaNYL citrate PF 100 MCG/2 ML VIAL ONE (03:57)
[2024-06-27 04:18] LABS: Partial Thromboplastin Time 27 Seconds (21-31); Prothrombin Time 11.3 Seconds (9.0-12.0)
[2024-06-27 04:23] LABS: Calcium 7.6 mg/dl (8.6-10.3); Creatinine Clr Calc Pharmacy 80.5 ml/min; Potassium 3.9 mmol/L (3.5-5.1)
[2024-06-27] MEDS ORDERED: MIDAZOLAM HCL 1 MG/ML 2ML VIAL ONE (04:31)
[2024-06-27] MEDS ORDERED: PROPOFOL IV EMULSION 10 MG/ML 20 ML VIAL IV ONE (04:36)
[2024-06-27] MEDS ORDERED: PHENYLEPHRINE 100MCG/ML 5ML SYR ONE ×2 (04:36→04:56)
[2024-06-27] MEDS ORDERED: OXYTOCIN 10 UNITS/ML VIAL ONE (04:36)
[2024-06-27] MEDS ORDERED: SUCCINYLCHOLINE 100MG/5ML SYR IV ONE (04:36)
[2024-06-27 04:43] LABS: Hematocrit (blood only) 30.2 % (37.0-47.0); Hemoglobin 9.7 g/dl (12.0-16.0); Mean Corpuscular Hemoglobin 28.3 pg (25.0-34.0); Mean Corpuscular Hgb Conc 32.1 g/dL (32.0-36.0); Mean Corpuscular Volume 88.4 fL (80.0-100.0); Mean Platelet Volume 12.3 fL (9.4-12.4); Platelet Count 266 K/uL (130-400); RDW Coefficient of Variation 14.1 % (11.5-14.5); RDW Standard Deviation 44.7 fL (36.4-46.3); Red Blood Count 3.43 M/uL (4.20-5.40); White Blood Count 30.79 K/ul (4.8-10.8)
[2024-06-27] MEDS ORDERED: cefOXitin SOD 1,000 MG VIAL ONE (04:43)
[2024-06-27 04:44] LABS: Basophils # (auto) 0.11 K/uL (0.00-0.20); Basophils % (auto) 0.4 %; Echinocytes 1+; Eosinophils # (auto) 0.02 K/uL (0.00-0.50); Eosinophils % (auto) 0.1 %; Immature Granulocytes # (auto) 0.55 K/uL (0.01-0.20); Immature Granulocytes % (auto) 1.8 %; Lymphocytes # (auto) 3.79 K/uL (1.20-3.40); Lymphocytes % (auto) 12.3 %; Monocytes # (auto) 1.62 K/uL (0.11-0.59); Monocytes % (auto) 5.3 %; Neutrophils % (auto) 80.1 %; Polychromasia 1+
[2024-06-27] MEDS: cefOXitin SOD 1,000 MG VIAL ONE (04:49)
[2024-06-27] MEDS: cefOXitin 2,000 MG in DEXTROSE 5 % MINI-B 50 ML IV SCH (04:49)
[2024-06-27] MEDS ORDERED: SODIUM BICARB 8.4% INJ 50 MEQ/50 ML SYR IV ONE (04:51)
[2024-06-27] MEDS ORDERED: ONDANSETRON INJ 2 MG/ML 2 ML VIAL ONE (04:57)
[2024-06-27] MEDS ORDERED: PHENYLEPHRINE HCL 10 MG/ML VIAL ONE (05:03)
--- NOTE | 2024-06-27 05:05 | Anesthesiology Consultation ---
Date of Service June 27, 2024 Assessment & Plan Chart Review Chart Review: Patient NOT seen in Pre Admission Testing emergent procedure Consults Requested none ASA [id number] Proposed Anesthesia Anesthesia Type: General Risk / Benefits Reviewed With: PT / POA / Parent / Guardian and Accepts Plan Additional Comments: Procedure deemed emergent, delaying procedure would have led to patient morbidity and harm, patient was lethargic at time of preoperative assessment, explained the risks/benefits of GA however patient was lethargic but had basic understanding, written informed consent waived due to reasons above. History Surgery Operation Date: 06/26/24 23:55 Proposed Procedures p Section in LD - Eveline Hernandez MD, FACOG Operation Date: 06/27/24 04:40 Proposed Procedures p Total Abdominal Hysterectomy - Eveline Hernandez MD, FACOG Height/Weight Height: 5 ft 3 in Weight: 85.366 kg Allergies Allergy/AdvReac Type Severity Reaction Status Date / Time miconazole [From Monistat 7] Allergy Severe severe Verified 06/18/24 10:18 localized itching, irritation Medications Home Medications Medication Instructions Recorded Confirmed Last Taken prenat.vits,katty,qam-raat-yehsn 1 tab PO QAM 11/10/23 06/26/24 Unknown acetone (urine) test (Ketone Urine #50 ea 12/08/23 06/18/24 Unknown Test strips) blood sugar diagnostic (OneTouch #150 ea 12/08/23 06/18/24 Unknown Verio test strips) blood-glucose meter (OneTouch #1 ea 12/08/23 06/18/24 Unknown Verio Reflect Meter) lancets 33 gauge (OneTouch Delica #150 ea 12/08/23 06/18/24 Unknown Plus Lancet) amoxicillin 875 mg-potassium 1 tab PO BID sinus infection 06/14/24 06/26/24 06/16/24 clavulanate 125 mg tablet nystatin 500,000 unit tablet 500,000 unit PO QID PRN vaginal 06/14/24 06/26/24 06/16/24 yeast infection Active Medications Generic Name Dose Route Start Last Admin Trade Name Freq PRN Reason Stop Dose Admin Lactated Ringer's 1,000 mls @ 125 mls/hr 06/27/24 00:15 06/27/24 02:48 Lr IV 06/27/24 23:14 Not Given .Q8H KATHI Sodium Chloride 1,000 mls @ 125 mls/hr 06/27/24 01:30 06/27/24 02:51 Nss IV 06/28/24 01:29 Not Given .Q8H KATHI Lactated Ringer's 1,000 mls @ 125 mls/hr 06/27/24 01:30 06/27/24 02:51 Lr IV 06/28/24 01:29 Not Given .Q8H KATHI Oxytocin/Lactated Ringer's 1,002 mls @ 125 mls/hr 06/27/24 01:30 06/27/24 03:26 Pitocin 20 Units/Lr IV 06/27/24 09:30 125 mls/hr .Q8H1M KATHI Administration Ketorolac Tromethamine 30 mg 06/27/24 01:30 06/27/24 01:00 Ketorolac 30 Mg/Ml Vial IV 06/27/24 19:31 30 mg Q6H KATHI Administration NPO Date Last Intake of Fluids: 06/26/24 Time Last Intake of Fluids: 16:00 Date Last Intake of Solids: 06/26/24 Time Last Intake of Solids: 16:00 Past Medical History Medical History Gestational diabetes mellitus 2020 with first - diet controlled treated as a gestational diabetic with current , diet controlled Past Family History Family History Grandfather (Paternal) Diabetes Coronary heart disease Brother No problems noted. Aunt Ovarian cancer maternal Mother FH: uterine cancer Gestational diabetes Family/Other Colorectal cancer maternal great grandmother Denies family history of Prostate cancer Myocardial infarction Breast cancer Past Surgical History Surgical History PONV (postoperative nausea and vomiting) with (2019) S/P 2019 History of tooth extraction Social History Smoking Status: Never smoker Do You Dip or Chew Tobacco: No Hx Alcohol Use: No Hx Substance Use: No substance use type: does not use Physical Exam Vital Signs Last Vital Signs Temp 97.7 F 06/27/24 03:30 Pulse 138 H 06/27/24 03:38 Resp 19 06/27/24 02:45 BP 96/50 L 06/27/24 03:16 Pulse Ox 86 L 06/27/24 03:38 Constitutional + lethargic ENMT Mouth: no dentition abnormality Thyromental Distance: > or= 3.5 Finger Breadths Mallampati Class: II Neck normal visual inspection Respiratory normal respiratory effort; no respiratory distress and not tachypneic Auscultation: lungs clear to auscultation bilaterally Cardiovascular Rate/Rhythm: regular rhythm and + tachycardic Extremities: no edema Neurologic moves all extremities Motor/Sensory: no sensory deficit Psychiatric Orientation: oriented x 3; + not alert (slight lethargy when seen in pre-op) Testing Laboratory Results 06/27/24 03:38 06/27/24 03:51 PT 11.3 Seconds (9.0-12.0) 06/27/24 03:38 INR 1.0 (0.9-1.1) 06/27/24 03:38 APTT 27 Seconds (21-31) 06/27/24 03:38 Blood Type AB Positive 06/26/24 23:33 Antibody Screen NEGATIVE 06/26/24 23:33
[2024-06-27 05:15] LABS: Fibrinogen 265 mg/dl (184-400)
--- NOTE | 2024-06-27 05:20 | Anesthesia Procedure Note ---
Anesthesia Procedure Note Arterial Line Note Date of procedure: 06/27/24 Consent: Risk / Benefits Reviewed With: Emergency Monitors attached: Blood Pressure, CO2, EKG and Pulse Oximetry Oxygen delivery method: ETT Time out completed: Yes Premedication: General anesthesia Laterality: Left Location: Radial Hand hygeine: Alcohol based hand rub Equipment/Supplies: Cap, Mask and Sterile procedures used Skin prep: 70% alcohol Ultrasound used: Yes US equipment and supplies: Sterile Gel Andre test: Negative Attempts: 1 Procedure Summary: left radial art line placed emergently after induction, 20G arrow Post-Procedure: Pt tolerates well and No complication Anesthesia Charges Arterial Line A Line Charges: 27596 Insert Art line Samp/Mon/Dhz
[2024-06-27 05:23] LABS: D Dimer 14420 ug/L FEU (0-500)
[2024-06-27] MEDS ORDERED: ATROPINE SULFATE 0.1 MG/ML 10ML SYR IV PRN (05:23)
[2024-06-27] MEDS ORDERED: fentaNYL citrate PF 100 MCG/2 ML VIAL IV PRN (05:23)
[2024-06-27] MEDS ORDERED: ONDANSETRON INJ 2 MG/ML 2 ML VIAL IV PRN ×2 (05:23→18:17)
[2024-06-27] MEDS: VASOPRESSIN 20 UNIT/ML VIAL ONE (05:23)
--- NOTE | 2024-06-27 05:23 | Communication Note ---
Date of Service: June 27, 2024 Received call for emergent hysterectomy d/t PPH after section. Patient was brought down to the main OR emergently, patient lethargic and receiving transfusion upon assessment. Tachycardic with hypotension. Due to emergent procedure, informed consent was waived to expedite procedure as delaying would have led to patient harm. Proceeded with general anesthesia with OB PPH Hemorrhage protocol already initiated. Delay in medical charting due to patient care.
--- NOTE | 2024-06-27 06:05 | Post Operative Brief Note ---
Immediate Post Op Note Date of Surgery June 27, 2024 Pre & Post Diagnosis Operation Date: 06/27/24 04:01 Pre-Op Diagnosis: hemorrhage. uterine atony Post-Op Diagnosis: hemorrhage uterine atony. I identified the patient and participated in the time-out.: Yes Procedure Operation Date: 06/27/24 04:01 Actual Procedures p Supracervical Hysterectomy - Eveline Hernandez MD, FACOG Surgeon Eveline Hernandez MD, FACOG Liquor Gallery Operator Sharon Mcmanus Quantitative Blood Loss (QBL) 150 Findings Consistent with Post-Op Diagnosis atonic uterus -normal ovaries as noted at section Specimens Specimen Description: A. Uterus. Drains Buchanan Catheter Anesthesia Type Spinal Complications none Disposition Accompanied Patient To Recovery: Yes Disposition: Surgical ICU
[2024-06-27] MEDS: PHENYLEPHRINE/NSS 25 MG/250 ML BAG IV SCH (06:25)
--- NOTE | 2024-06-27 06:33 | Anesthesiology Progress Note ---
Date of Service June 27, 2024 Anesthesia Post Procedure Vital Signs Vital Signs: Temp Pulse Resp BP Pulse Ox 06/27/24 03:38 138 H 86 L 06/27/24 03:34 138 H 91 06/27/24 03:33 144 H 86 L 06/27/24 03:30 97.7 F 142 H 94 06/27/24 03:29 148 H 89 L 06/27/24 03:27 143 H 88 L 06/27/24 03:24 151 H 95 06/27/24 03:19 88 L 06/27/24 03:19 147 H 06/27/24 03:19 154 H 80 L 06/27/24 03:16 139 H 96/50 L 06/27/24 03:14 146 H 94 06/27/24 03:13 142 H 85 L 06/27/24 03:09 148 H 96 06/27/24 03:04 157 H 96 06/27/24 03:02 155 H 105/61 06/27/24 02:59 145 H 98 06/27/24 02:54 144 H 98 06/27/24 02:49 147 H 100 06/27/24 02:45 97.5 F L 115 H 19 113/61 100 06/27/24 02:45 129 H 113/61 06/27/24 02:44 120 H 100 06/27/24 02:39 127 H 99 06/27/24 02:35 117 H 91/58 L 06/27/24 02:34 110 H 100 06/27/24 02:30 97.5 F L 106 H 15 91/58 L 100 06/27/24 02:29 101 H 100 06/27/24 02:24 95 H 99 06/27/24 02:19 90 99 06/27/24 02:16 97 H 79/54 L 06/27/24 02:14 83 99 06/27/24 02:11 86 83/47 L 92 06/27/24 02:10 97.3 F L 90 16 83/47 L 95 06/27/24 02:09 85 97 06/27/24 02:05 83 98 06/27/24 02:00 87 100 06/27/24 01:55 88 100 06/27/24 01:50 96 H 100 06/27/24 01:45 98 H 99 06/27/24 01:43 88 71/44 L 06/27/24 01:41 89 68/44 L 06/27/24 01:40 93 H 99 06/27/24 01:39 96 H 69/38 L 06/27/24 01:36 100 H 90/55 L 06/27/24 01:35 116 H 100 06/27/24 01:30 100 H 98 06/27/24 01:26 102 H 120/66 06/27/24 01:25 98.1 F 138 H 14 99 06/27/24 01:25 107 H 99 06/26/24 23:22 96 H 118/72 06/26/24 23:19 97.7 F 96 H 18 118/72 Transfer of Care Handoff Completed per policy Notes Mental Status: alert / awake / arousable and participated in evaluation Patient Amnestic to Procedure: Yes Nausea / Vomiting: adequately controlled Pain: adequately controlled Airway Patency, RR, SpO2: stable & adequate BP & HR: stable & adequate and see Notes below Hydration State: stable & adequate Anesthetic Complications: no major complications apparent and Pt Satisfied with anesthetic care Notes: patient BP remains labile, tachycardic, likely still fluid depleted, signed out to ICU team for continued critical management.
[2024-06-27] MEDS ORDERED: STAT IV Infusion **Titration per Protocol STA (06:38)
--- NOTE | 2024-06-27 06:39 | Post Operative Brief Note ---
Immediate Post Op Note Date of Surgery June 27, 2024 Pre & Post Diagnosis Operation Date: 06/27/24 04:01 Pre-Op Diagnosis: hemorrhage. atonic uterus Post-Op Diagnosis: hemorrhage. uterine atony I identified the patient and participated in the time-out.: Yes Procedure Operation Date: 06/27/24 04:01 Actual Procedures p Supracervical Hysterectomy - Eveline Hernandez MD, FACOG Surgeon Eveline Hernandez MD, FACOG Filler Spreader Sharon Mcmanus MD Quantitative Blood Loss (QBL) 150 Findings Consistent with Post-Op Diagnosis atonic uterus with passage of large clot after removal of MARIAM device ovaries were normal as noted at C--section earlier tonight Specimens Specimen Description: A. Uterus. Drains Buchanan Catheter Anesthesia Type General Complications none Disposition Accompanied Patient To Recovery: Yes Disposition: Surgical ICU
--- NOTE | 2024-06-27 06:43 | Critical Care Consultation ---
Date of Consultation June 27, 2024 Assessment & Plan (1) Primary hemorrhage: (2) Hemorrhagic shock: (3) Acute blood loss anemia: Plan Reason Critically Ill: 1. Primary post- hemorrhage 2/2 uterine atony 2. Acute blood loss anemia 3. Hemorrhagic shock 4. Leukocytosis, likely reactive i/s/o physiologic stress 5. Metabolic acidosis, non-anion gap 6. Hypocalcemia 2/2 #2 Neuro - RASS GOAL 0 Multimodal pain management per OBGYN APAP PRN pain/fever Neurovascular checks per protocol Maintain normothermia Cardiac - MAP goal > 65mmHg, currently requiring low dose neosynephrine Respiratory Extubated to oxymask, wean as tolerated SpO2 goal > 92% Repeat VBG IS/Flutter HOB 30, aspiration precautions GI - Diet: Advance JAYASHREE once recovered SUP: N/A Bowel regimen: Miralax RENAL/LYTES - Repeat labs this AM Replete electrolytes as indicated Buchanan for accurate I/Os, removal per protocol Trend lactate to clearance ENDO - BG 140-180 per SCCM guidelines ISS if needed while inpatient HEME - S/p 4U PRBC Repeat coag studies daily Maintain fibrinogen > 200 Serial H/H PRBC transfusion as needed for HGB > 7 ID - Perioperative antibiotics per OBGYN Culture and treat as indicated Trend fever curve and WBC LINES/TUBES/DRAINS - PIV x2 L radial arterial line (Day #1) Buchanan (Day #1) DVT PROPHYLAXIS - Held, contraindicated due to active bleeding DISPOSITION - Remain in ICU while on vasopressor I have personally spent 42 minutes of critical care time in the direct management of this patient. This is a life/limb threatening event. This includes time spent evaluating patient, direct bedside care, chart review, placing orders, interpretation of diagnostic studies, discussion with consultants, patient, and family members, as well as other required patient management activities. This time is exclusive of all separately billable procedures, and teaching time and separate from and in addition to any other critical care service time. Thank you for allowing us to participate in the care of this patient. Please refer to my attending physician's documentation for any further recommendations. History of Present Illness Reason for Consultation: Post- hemorrhage Requesting Physician: Crystal Attending Physician: Eveline Hernandez MD, FACOG History of Present Illness Ms. Tracy Mueller is a 34YOF (now ) with a history of prior tobacco use, gestational diabetes who initially presented to [facility] on the evening of 06/26/2024 after SPROM at 38 6/7wks. She underwent successful section at 0100 on 06/27/[address] Rojas. EBL 893cc. Post-operatively the patient developed hemorrhage due to uterine atony which was refractory to Pitocin, Hemabate, Methergine, and Cytotec. EBL 732cc. She then received 1g TXA and 2U PRBC. Vannesa was also placed. She then proceeded to the operating room where patient underwent supracervical hysterectomy with salpingectomy. EBL 150cc. General anesthesia was used. She was hypotensive intraoperatively requiring intermittent ephedine. She was transferred to ICU for continuation of care. Patient seen on arrival to ICU 103. She awakens to voice. She denies pain at this time as well as nausea, chest pain, shortness of breath. She remains tachycardic and hypotensive, thus neosynephrine started. LR infusion ongoing. Allergies Allergy/AdvReac Type Severity Reaction Status Date / Time miconazole [From Monistat 7] Allergy Severe severe Verified 06/18/24 10:18 localized itching, irritation Home Medications Medication Instructions Recorded Confirmed Type prenat.vits,katty,jek-yczc-gbkhl 1 tab PO QAM 11/10/23 06/26/24 History acetone (urine) test (Ketone Urine #50 ea 12/08/23 06/18/24 Rx Test strips) blood sugar diagnostic (OneTouch #150 ea 12/08/23 06/18/24 Rx Verio test strips) blood-glucose meter (OneTouch #1 ea 12/08/23 06/18/24 Rx Verio Reflect Meter) lancets 33 gauge (OneTouch Delica #150 ea 12/08/23 06/18/24 Rx Plus Lancet) amoxicillin 875 mg-potassium 1 tab PO BID sinus infection 06/14/24 06/26/24 History clavulanate 125 mg tablet nystatin 500,000 unit tablet 500,000 unit PO QID PRN vaginal 06/14/24 06/26/24 History yeast infection Patient History Medical History Gestational diabetes mellitus 2019 with first - diet controlled treated as a gestational diabetic with current , diet controlled Surgical History PONV (postoperative nausea and vomiting) with (2019) S/P 2019 History of tooth extraction Family History Grandfather (Paternal) Diabetes Coronary heart disease Brother No problems noted. Aunt Ovarian cancer maternal Mother FH: uterine cancer Gestational diabetes Family/Other Colorectal cancer maternal great grandmother Denies family history of Prostate cancer Myocardial infarction Breast cancer Social History (Updated 06/26/24 @ 23:18 by Gabriella Henson RN) Smoking Status: Never smoker Tobacco Type: Cigarettes Age Started Using Tobacco: 16; Age Quit Using Tobacco: 19; packs per day: 0.01; Second Hand Exposure: No; Do You Dip or Chew Tobacco: No; Hx Alcohol Use: No Hx Substance Use: No Preferred Language: [place]se Communication Ability: Effective Visual Impairment: Limited Hearing Ability: Normal 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: No Beliefs That Will Affect Care: None marital status: marital status details: Silverio Mueller (37) [phone] Current Living Situation: Spouse Current Living Situation Comment: lives with spouse and daughter, 3 dogs current occupational status: previously employed 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 Other Information That Helps Us Care for You: No Feels Safe at Home: Yes Safety Concerns: Feels Safe At This Time Childhood Exposure to Second-Hand Smoke: No Diet: regular Dental Care, Regularly: Yes Physical Activity Frequency: 3-4 Times per Week Seatbelt Use: always Sunscreen Use: Yes Assistive Devices: Glasses Review of Systems Review of Systems: All systems reviewed & are unremarkable except as noted in Subjective Physical Exam Constitutional: well developed, well nourished and + lethargic; no acute distress Eyes: PERRL, conjunctivae normal, anicteric sclerae ENMT: external ear and nose normal, oropharynx normal Neck: trachea midline, no thyromegaly Respiratory: normal respiratory effort, lungs clear to auscultation Cardiovascular: Rate/Rhythm: regular rhythm and + tachycardic Heart Sounds: no murmur Vessels: no JVD and no carotid bruit Extremities: normal capillary refill Non-pitting pedal edema bilaterally Gastrointestinal (Abdomen): Inspection/Auscultation: normal bowel sounds Supracervical incisional site is hemostatic and well-approximated Skin: Mottled to knees, otherwise warm and well-perfused Neurologic: Awakens to voice, oriented x3. Moves all extremities Genitourinary: Buchanan in place draining yellow urine Incisional site as above Results & Data Results & Data Vital Signs (Past 12 Hours) Vital Signs Temp Pulse Resp BP Pulse Ox 06/27/24 03:38 138 H 86 L 06/27/24 03:34 138 H 91 06/27/24 03:33 144 H 86 L 06/27/24 03:30 36.5 C 142 H 94 06/27/24 03:29 148 H 89 L 06/27/24 03:27 143 H 88 L 06/27/24 03:24 151 H 95 06/27/24 03:19 88 L 06/27/24 03:19 147 H 06/27/24 03:19 154 H 80 L 06/27/24 03:16 139 H 96/50 L 06/27/24 03:14 146 H 94 06/27/24 03:13 142 H 85 L 06/27/24 03:09 148 H 96 06/27/24 03:04 157 H 96 06/27/24 03:02 155 H 105/61 06/27/24 02:59 145 H 98 06/27/24 02:54 144 H 98 06/27/24 02:49 147 H 100 06/27/24 02:45 36.4 C L 115 H 19 113/61 100 06/27/24 02:45 129 H 113/61 06/27/24 02:44 120 H 100 06/27/24 02:39 127 H 99 06/27/24 02:35 117 H 91/58 L 06/27/24 02:34 110 H 100 06/27/24 02:30 36.4 C L 106 H 15 91/58 L 100 06/27/24 02:29 101 H 100 06/27/24 02:24 95 H 99 06/27/24 02:19 90 99 06/27/24 02:16 97 H 79/54 L 06/27/24 02:14 83 99 06/27/24 02:11 86 83/47 L 92 06/27/24 02:10 36.3 C L 90 16 83/47 L 95 06/27/24 02:09 85 97 06/27/24 02:05 83 98 06/27/24 02:00 87 100 06/27/24 01:55 88 100 06/27/24 01:50 96 H 100 06/27/24 01:45 98 H 99 06/27/24 01:43 88 71/44 L 06/27/24 01:41 89 68/44 L 06/27/24 01:40 93 H 99 06/27/24 01:39 96 H 69/38 L 06/27/24 01:36 100 H 90/55 L 06/27/24 01:35 116 H 100 06/27/24 01:30 100 H 98 06/27/24 01:26 102 H 120/66 06/27/24 01:25 107 H 99 06/26/24 23:22 96 H 118/72 06/26/24 23:19 36.5 C 96 H 18 118/72 Laboratory Results Reviewed Diagnostic Findings Reviewed Medications Administered See MAR Coding Level of Care Code 69058 CRITICAL CARE 1ST 30-74M Diagnoses Primary hemorrhage O72.1 Hemorrhagic shock R57.8 Acute blood loss anemia D62 Time Spent (min) 42
--- NOTE | 2024-06-27 06:48 | Operative Report ---
Post Operative Report Pre & Post Diagnosis Operation Date: 06/27/24 04:01 Pre-Op Diagnosis: hemorrhage. Post-Op Diagnosis: hemorrhage. I identified the patient and participated in the time-out.: Yes Procedure Operation Date: 06/27/24 04:01 Actual Procedures p Supracervical Hysterectomy - Eveline Hernandez MD, FACOG Surgeon Eveline Hernandez MD, FACOG Scaffolder Sharon Mcmanus MD Quantitative Blood Loss (QBL) 150 Findings Consistent with Post-Op Diagnosis Specimens uterus Drains Buchanan catheter to straight drainage- clear urine at end of the case. Anesthesia Type General Complications none Disposition Accompanied Patient To Recovery: Yes Disposition: Surgical ICU Indications Persistent massive hemorrhage despite full hemorrhage protocol followed. Bleeding had slowed with placement of the MARIAM initially but then there was bleeding vaginally around the MARIAM balloon. Patient has becoming more increasingly hypotensive and unstable with heart rate at 140 bpm. Is felt prudent to proceed with supracervical hysterectomy because of the significant bleeding and hypotension. She is already receiving 1 unit of packed cells and is on her second unit on the way to the operating room. Description of Procedure As the patient received general anesthetic she was prepped and draped in the usual sterile fashion her prior section scar was entered with a scalpel and carried to the fascia with the same scalpel. The fascial incision was then extended with traction. Upon entering the uterus there was a small amount of old blood present. The salpingectomy sites were dry as was the uterine incision. The lower uterine incision continued to feel boggy but the cervix itself was intact without lacerations. The fundus also somewhat atonic and required a dose of IM Pitocin. After the MARIAM device was removed from the uterus, there was a 272 cc clot expressed. This point bleeding had slowed significantly. We then proceeded with the supracervical hysterectomy. The ovarian pedicles bilaterally were taken down with the LigaSure device as well as the round ligament and the uterine vessels. Approximately 2 cm below the uterine incision, a scalpel was used to enter the lower uterine segment and the LigaSure device was then used to separate the fundus of the uterus from the lower uterine segment. The cuff was then closed with individual [id number]-[id number] stitches of 0 Vicryl. Bleeding along the bladder flap was secured with the Bovie. All pedicles were reexamined and found to have excellent hemostasis. The fascia was then closed in a running fashion with 0 Vicryl. After irrigating the subcutaneous layer, the skin edges were reapproximated with a subcuticular stitch of 4-0 Vicryl. Because of the emergent nature of this surgery, a count was not done prior to opening the abdomen. X-ray of the abdomen done postoperat ively revealed no evidence of retained instruments or sponges. The x-ray was officially read by Dr. Aguirre ON myself as well as the x-ray surfacing technician as there is no radiologist on-call to read it at the time of the surgery. Patient is in stable condition following 4 units of packed cells. She did not require any FFP or other blood products as her coagulopathy profile was normal. I accompanied her to the surgical ICU for her postoperative care. I attest to the content of the Intraoperative Record and any orders documented therein. Any exceptions are noted below.
[2024-06-27] MEDS: PHENYLEPHRINE HCL 25 MG/250 ML NSS IV ONE (06:50)
[2024-06-27] MEDS: CALCIUM GLUCONATE 1,000 MG/60 ML BAG IV STA ×2 (06:52→15:29)
--- NOTE | 2024-06-27 06:53 | XRay Report ---
EXAM: XR KUB/Abdomen 1 view CLINICAL HISTORY: EMERGENCY SURGERY COUNT TECHNIQUE: X-ray images of the abdomen KUB were obtained in upright position. COMPARISON: 12/12/2020 FINDINGS: Gas Pattern: Gas pattern within the abdomen is non-specific with mild gaseous distension. No evidence of bowel obstruction or distention. Soft Tissues: Soft tissues of the abdomen appear normal without evidence of masses or calcifications. Liver, spleen, and kidneys are of normal size and position. IMPRESSION: 1. No acute abnormalities identified. 2. No interval changes. Electronically signed by Paras Larson 06-27-2024 06:53 AM
[2024-06-27 06:54] LABS: Base Excess VBG -7.7 mEq/L; HCO3 VBG 18 mmol/L; Oxygen Saturation VBG 99.7 %; PCO2 VBG 34 mmHg (38-50); PO2 VBG 126 mmHg; pH VBG 7.32 (7.36-7.41)
[2024-06-27] MEDS: ROCURONIUM BROMIDE 10 MG/ML 5 ML VIAL IV ONE ×2 (07:29)
[2024-06-27 07:35] LABS: BUN Creatinine Ratio 16.9 (10-20); Creatinine Clr Calc Pharmacy 90.5 ml/min; Magnesium 1.4 mg/dl (1.7-2.4); Phosphorus 4.6 mg/dl (2.5-4.9); Potassium 4.9 mmol/L (3.5-5.1)
[2024-06-27] MEDS: DOCUSATE SODIUM 100 MG CAP PO SCH (07:44)
[2024-06-27] MEDS: ACETAMINOPHEN 325 MG TAB PO SCH (07:44)
[2024-06-27] MEDS: SIMETHICONE 80 MG CHEW PO SCH (07:44)
[2024-06-27] MEDS: ceFAZolin 1000MG 1,000 MG/7.5 ML SYR IV SCH (07:58)
[2024-06-27] MEDS: FERROUS SULFATE 325 MG TAB PO SCH (07:58)
[2024-06-27] MEDS: ONDANSETRON INJ 2 MG/ML 2 ML VIAL IV PRN (08:41)
[2024-06-27] MEDS: ceFAZolin 1000MG 1,000 MG/7.5 ML SYR IV ONE (09:00)
--- NOTE | 2024-06-27 09:03 | Critical Care Progress Note ---
Date of Service June 27, 2024 Assessment & Plan (1) Primary hemorrhage: (2) Hemorrhagic shock: (3) Acute blood loss anemia: Plan Reason Critically Ill: 1. Primary post- hemorrhage 2/2 uterine atony 2. Acute blood loss anemia 3. Hemorrhagic shock 4. Leukocytosis, likely reactive i/s/o physiologic stress 5. Metabolic acidosis, non-anion gap 6. Hypocalcemia 2/2 #2 Neuro - RASS GOAL 0 Multimodal pain management per OBGYN APAP PRN pain/fever Neurovascular checks per protocol Maintain normothermia Cardiac - MAP goal > 65mmHg Off of Neal gtt now and maintaining. Respiratory Extubated to oxymask --> Room air currently. SpO2 goal > 92% Repeat VBG IS/Flutter HOB 30, aspiration precautions GI - Diet: Advance JAYASHREE once recovered SUP: N/A Bowel regimen: Miralax RENAL/LYTES - Trend labs Replete electrolytes as indicated Buchanan for accurate I/Os, removal per protocol Trend lactate to clearance ENDO - BG 140-180 per SCCM guidelines ISS if needed while inpatient HEME - S/p 4U PRBC Repeat coag studies daily Maintain fibrinogen > 200 Serial H/H PRBC transfusion as needed for HGB > 7 ID - Perioperative antibiotics per OBGYN Culture and treat as indicated Trend fever curve and WBC LINES/TUBES/DRAINS - PIV x2 L radial arterial line (Day #1) - d/c when able. Buchanan (Day #1) - d/c when able. MUSCULOSKELETAL - Complaining of intense burning in the RIGHT hand. Physical exam consistent with edema more pronounced from the RIGHT elbow down to the fingertips. Good capillary refill appreciated. Strong radial pulse noted. No pallor. There is an IV site in place. This was instructed to be removed by nursing staff. We will elevate the hand and provide pain medication. Additionally, we will perform ultrasound to assess for possibility of clot or phlebitis. Concern for possible infiltrate versus significant capillary leak with blood pressures being obtained above IV site and resuscitative measures with fluids. Low threshold for Ortho hand evaluation if without improvement. DVT PROPHYLAXIS - Held, contraindicated due to active bleeding DISPOSITION - ICU until H&H stable and without need for vasopressors. AM Labs demonstrating stability. Repeat labs at noon. It she remains hemodynamically stable and withou t need for transfusion, can dispo back to HIGH LIFT MULE OPERATOR service. Thank you for allowing us to participate in the care of this patient. Please refer to my attending physician's documentation for any further recommendations. Admission and Anticipated Discharge Date Admission Date: June 26, 2024 Subjective Patient seen and evaluated at bedside this morning. Discussed at interdisciplinary rounds. Reviewed case with DRYING MACHINE OPERATOR team. She has no discomfort. She does complain of some pain and tightness in the RIGHT hand near her IV site. Thankfully, she describes no abdominal pain, vaginal bleeding, chest pain, shortness of breath, headaches, or neurologic symptoms otherwise. Review of Systems Review of Systems: As per subjective. Physical Exam Physical Exam: VITAL SIGNS - Vital signs and nursing notes were reviewed. GENERAL - 34-year-old female appearing her stated age who is in no acute distress. Communicates well with provider and answers questions appropriately. SKIN - Edematous in the bilateral upper lower extremities. Attention to tightness with increasing identity to the right upper extremity extending from the elbow to the fingertips. Soft to touch in the biceps region. Skin with good capillary refill and strong radial pulses. No crepitus or pallor noted. HEAD - NC/AT. NOSE - Midline and without cyanosis. MOUTH/OROPHARYNX - Without perioral cyanosis. NECK - Neck with FROM. LUNGS - Chest wall symmetric without accessory muscle use, intercostals retractions, or central cyanosis. Normal vesicular breath sounds CTA B/L. No wheezes, rales, or rhonchi appreciated. CARDIAC - RRR with S1/S2. No murmur, rubs, or gallops appreciated. ABDOMEN - Abdominal contour flat without pulsations or visible masses. BS normoactive all four quadrants. No tenderness with light palpation. Lower abdominal dressing clean, dry, and intact. EXTREMITIES - Edema as noted above. Limited ROM of the RIGHT hand secondary to discomfort. +3/5 radial and dorsalis pedis pulses palpated throughout. NEUROLOGIC - Cranial nerves II through XII grossly intact. PSYCH - A&Ox3 and cooperates fully with examiner. Pt is very pleasant and interacts well with examiner. Results & Data Results & Data Vital Signs (Past 12 Hours) Vital Signs Temp Pulse Pulse Resp BP BP Pulse Ox 06/27/24 07:11 36.4 C L 06/27/24 07:00 99 H 13 100 06/27/24 07:00 108/73 06/27/24 07:00 108/73 06/27/24 07:00 36.4 C L 100 H 16 104/67 100 06/27/24 06:50 112/76 06/27/24 06:50 112/76 06/27/24 06:45 115/70 06/27/24 06:45 98 H 20 110/61 100 06/27/24 06:40 108 H 18 89/56 L 100 06/27/24 06:35 114 H 20 94/70 L 100 06/27/24 06:30 36.4 C L 104 H 18 111/68 100 06/27/24 06:25 116 H 18 93/58 L 100 06/27/24 06:20 130 H 20 96/61 L 100 06/27/24 06:15 134 H 18 88/75 L 100 06/27/24 06:10 36.3 C L 134 H 16 81/54 L 100 06/27/24 03:38 138 H 86 L 06/27/24 03:34 138 H 91 06/27/24 03:33 144 H 86 L 06/27/24 03:30 36.5 C 142 H 94 06/27/24 03:29 148 H 89 L 06/27/24 03:27 143 H 88 L 06/27/24 03:24 151 H 95 06/27/24 03:19 88 L 06/27/24 03:19 147 H 06/27/24 03:19 154 H 80 L 06/27/24 03:16 139 H 96/50 L 06/27/24 03:14 146 H 94 06/27/24 03:13 142 H 85 L 06/27/24 03:09 148 H 96 06/27/24 03:04 157 H 96 06/27/24 03:02 155 H 105/61 06/27/24 02:59 145 H 98 06/27/24 02:54 144 H 98 06/27/24 02:49 147 H 100 06/27/24 02:45 36.4 C L 115 H 19 113/61 100 06/27/24 02:45 129 H 113/61 06/27/24 02:44 120 H 100 06/27/24 02:39 127 H 99 06/27/24 02:35 117 H 91/58 L 06/27/24 02:34 110 H 100 06/27/24 02:30 36.4 C L 106 H 15 91/58 L 100 06/27/24 02:29 101 H 100 06/27/24 02:25 36.4 C L 95 H 15 99 06/27/24 02:24 95 H 99 06/27/24 02:19 90 99 06/27/24 02:16 97 H 79/54 L 06/27/24 02:14 83 99 06/27/24 02:11 86 83/47 L 92 06/27/24 02:10 36.3 C L 90 16 83/47 L 95 06/27/24 02:09 85 97 06/27/24 02:05 83 98 06/27/24 02:00 87 100 06/27/24 01:55 88 100 06/27/24 01:50 96 H 100 06/27/24 01:45 98 H 99 06/27/24 01:43 88 71/44 L 06/27/24 01:41 89 68/44 L 06/27/24 01:40 93 H 99 06/27/24 01:39 96 H 69/38 L 06/27/24 01:36 100 H 90/55 L 06/27/24 01:35 116 H 100 06/27/24 01:30 100 H 98 06/27/24 01:26 102 H 120/66 06/27/24 01:25 36.7 C 138 H 14 99 06/27/24 01:25 107 H 99 06/26/24 23:22 96 H 118/72 06/26/24 23:19 36.5 C 96 H 18 118/72 O2 Del Method O2 Flow Rate 06/27/24 07:11 06/27/24 07:00 Room Air 06/27/24 07:00 06/27/24 07:00 06/27/24 07:00 Nasal Cannula 2 06/27/24 06:50 06/27/24 06:50 06/27/24 06:45 06/27/24 06:45 Nasal Cannula 3 06/27/24 06:40 Nasal Cannula 3 06/27/24 06:35 Nasal Cannula 3 06/27/24 06:30 Nasal Cannula 3 06/27/24 06:25 Oxymask 5 06/27/24 06:20 Oxymask 5 06/27/24 06:15 Oxymask 5 06/27/24 06:10 Oxymask 8 06/27/24 03:38 06/27/24 03:34 06/27/24 03:33 06/27/24 03:30 06/27/24 03:29 06/27/24 03:27 06/27/24 03:24 06/27/24 03:19 06/27/24 03:19 06/27/24 03:19 06/27/24 03:16 06/27/24 03:14 06/27/24 03:13 06/27/24 03:09 06/27/24 03:04 06/27/24 03:02 06/27/24 02:59 06/27/24 02:54 06/27/24 02:49 06/27/24 02:45 06/27/24 02:45 06/27/24 02:44 06/27/24 02:39 06/27/24 02:35 06/27/24 02:34 06/27/24 02:30 06/27/24 02:29 06/27/24 02:25 06/27/24 02:24 06/27/24 02:19 06/27/24 02:16 06/27/24 02:14 06/27/24 02:11 06/27/24 02:10 06/27/24 02:09 06/27/24 02:05 06/27/24 02:00 06/27/24 01:55 06/27/24 01:50 06/27/24 01:45 06/27/24 01:43 06/27/24 01:41 06/27/24 01:40 06/27/24 01:39 06/27/24 01:36 06/27/24 01:35 06/27/24 01:30 06/27/24 01:26 06/27/24 01:25 06/27/24 01:25 06/26/24 23:22 06/26/24 23:19 Coding Level of Care Code 13398 SUB INP/OBS CARE MIN Diagnoses Primary hemorrhage O72.1 Hemorrhagic shock R57.8 Acute blood loss anemia D62
[2024-06-27 09:32] LABS: Hematocrit (blood only) 31.6 % (37.0-47.0); Hemoglobin 10.8 g/dl (12.0-16.0); Mean Corpuscular Hemoglobin 27.8 pg (25.0-34.0); Mean Corpuscular Hgb Conc 34.2 g/dL (32.0-36.0); Mean Corpuscular Volume 81.4 fL (80.0-100.0); Mean Platelet Volume 11.4 fL (9.4-12.4); Platelet Count 131 K/uL (130-400); Platelet Estimate Normal (Normal); RDW Coefficient of Variation 15.1 % (11.5-14.5); RDW Standard Deviation 44.9 fL (36.4-46.3); Red Blood Count 3.88 M/uL (4.20-5.40); White Blood Count 19.01 K/ul (4.8-10.8)
[2024-06-27] MEDS: PRENATAL VITAMIN 1 TAB PO SCH (10:30)
[2024-06-27] MEDS: ACETAMINOPHEN 1,000 MG/100 ML VIAL IV STA ×2 (10:45→16:20)
[2024-06-27] MEDS: HYDROmorphone INJ 0.5 MG/0.5 ML SYR IV PRN (10:53)
[2024-06-27] MEDS: HYDROmorphone INJ 0.5 MG/0.5 ML SYR IV STA ×3 (11:14→14:41)
--- NOTE | 2024-06-27 12:10 | Ultrasound Report ---
RIGHT UPPER EXTREMITY VENOUS DOPPLER ULTRASOUND CLINICAL HISTORY: Right upper extremity edema. COMPARISON STUDY: No previous studies for comparison. TECHNIQUE: Sonography of the venous system of the right upper extremity was performed. FINDINGS: Right internal jugular, subclavian, axillary, brachial, radial and ulnar veins were patent. There is no deep venous thrombus within the right upper extremity. There is occlusive superficial th rombus within the right cephalic vein which extends from the antecubital fossa to distal forearm, eduardo roximately 10 cm in length. No sonographic abnormality within the posterior right hand at site of nika n was identified. IMPRESSION: 1. No deep venous thrombus within the right upper extremity. 2. Superficial thrombus within the right cephalic vein which extends for approximately 10 cm, as desc ribed above. ACT 112: Negative or not required by law. Electronically signed by: Silverio Rodriguez M.D. 06/27/2024 12:09 PM
[2024-06-27 12:16] LABS: Hematocrit (blood only) 28.8 % (37.0-47.0); Hemoglobin 10.1 g/dl (12.0-16.0); Mean Corpuscular Hemoglobin 28.1 pg (25.0-34.0); Mean Corpuscular Hgb Conc 35.1 g/dL (32.0-36.0); Mean Corpuscular Volume 80.2 fL (80.0-100.0); Mean Platelet Volume 11.6 fL (9.4-12.4); Platelet Count 155 K/uL (130-400); RDW Coefficient of Variation 15.2 % (11.5-14.5); RDW Standard Deviation 44.1 fL (36.4-46.3); Red Blood Count 3.59 M/uL (4.20-5.40)
[2024-06-27 12:32] LABS: BUN Creatinine Ratio 18.3 (10-20); Calcium 7.4 mg/dl (8.6-10.3); Creatinine Clr Calc Pharmacy 86.6 ml/min; Magnesium 1.4 mg/dl (1.7-2.4); Phosphorus 3.9 mg/dl (2.5-4.9); Potassium 5.3 mmol/L (3.5-5.1)
[2024-06-27 12:51] LABS: iSTAT Arterial Blood Gas HCO3 13 meg/L (19-24); iSTAT Arterial Blood Gas pCO2 32 mmHg (35-46); iSTAT Arterial Blood Gas pH 7.22 (7.35-7.45); iSTAT Arterial Blood Gas pO2 337 mmHg (80-95); iSTAT Carbon Dioxide 14 mmol/L (24-31); iSTAT Hematocrit 31 % (37-47); iSTAT Hemoglobin 10.5 g/dl (12.0-16.0); iSTAT Sample Type Arterial; iSTAT Sodium 133 mmol/L (135-144)
[2024-06-27] MEDS: MAGNESIUM SULFATE / D5W 1 GM/100 ML BAG IV SCH ×2 (13:13→20:42)
[2024-06-27 13:52] LABS: Fibrinogen 224 mg/dl (184-400); INR 1.1 (0.9-1.1); Partial Thromboplastin Time 27 Seconds (21-31); Prothrombin Time 11.6 Seconds (9.0-12.0)
--- NOTE | 2024-06-27 13:59 | Orthopedic Consultation ---
Date of Consultation June 27, 2024 Assessment & Plan (1) Acute carpal tunnel syndrome of right wrist: The patient and her were educated regarding today's findings. Conservative care measures were discussed. Although she does have a superficial thrombus in the right forearm, I do not suspect that it is causing her current pain. This may be treated with warm moist compresses to assist with resolution. I suspect that she had infiltration as well as fluid overload related to her and [id number] surgeries. She now has a likely tenosynovitis of the flexor and extensor tendons of the hand and wrist. Importance of elevation and gentle compression, as well as resting of the tendons, was emphasized. She was placed in a Christianson dressing to assist with edema control. This will be left on for 48 hours. Her hand was elevated on more pillows. Continue with IV medication as needed for pain control until the edema improves. She was reassured that I find no evidence for compartment syndrome at this time. She had no direct trauma. Vascular status is normal and capillary refill is brisk. She will be rechecked later today, as well as tomorrow morning. Care plan will be discussed with Dr. Westbrook. Supervising Physician Co-Signing Physician Notes I, Dr. Westbrook, saw and examined the patient. I discussed the management with my PA. I reviewed my PAs note and agree with the documented findings and attest to completing the substantive portion of medical decision making and plan of care I developed. Evaluated at the end of the day. Patient still with RUE pain and decreased sensation to light touch in Thumb to middle finger. Patient removed the compressive dressing due to increased pain. Pain and swelling RUE due to Cephalic vein blood clot and DIC Recommend cock-up wrist splint and ice. Will re-evaluate. Continue care per primary service History of Present Illness Reason for Consultation: Right hand pain Requesting Physician: Bernabe FLETCHER Attending Physician: Eveline Hernandez MD, FACOG History of Present Illness This 34-year-old female is seen today in consultation for right wrist and hand pain. The patient initially came in last evening for that was performed just after midnight. The patient had continued post delivery bleeding. She required transfusion of packed RBCs, clot evacuation, and subsequent emergent hysterectomy later this morning. Prior to her emergent hysterectomy, and IV site was placed in her right dorsal hand. The patient had almost immediate pain in her wrist, hand, and fingers. The pain has persisted and orthopedics was consulted for evaluation. The patient states she has a history of carpal tunnel syndrome and was evaluated for it over a year ago. She was told at that time that it was severe and surgery was recommended. She never followed through with surgical invention due to her . 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 Symptoms improved with rest of her hands and wrists. She states over the last several days her symptoms have been mild or nonexistent. She currently complains of pain with any motion of the digits, wrist, or elbow. The pain is located in her wrist and hand. She denies any pain in the forearm or upper arm. [id number]. She complains of numbness and tingling in the thumb, index, long, and ring fingers. Current treatment consists of elevation and rest. The hand is propped on pillows. No symptoms on the left. No other orthopedic complaints. Allergies Allergy/AdvReac Type Severity Reaction Status Date / Time miconazole [From Monistat 7] Allergy Severe severe Verified 06/18/24 10:18 localized itching, irritation Home Medications Medication Instructions Recorded Confirmed Type prenat.vits,katty,[id number] 1 tab PO QAM 11/10/23 06/26/24 History acetone (urine) test (Ketone Urine #50 ea 12/08/23 06/18/24 Rx Test strips) blood sugar diagnostic (OneTouch #150 ea 12/08/23 06/18/24 Rx Verio test strips) blood-glucose meter (OneTouch #1 ea 12/08/23 06/18/24 Rx Verio Reflect Meter) lancets 33 gauge (OneTouch Delica #150 ea 12/08/23 06/18/24 Rx Plus Lancet) amoxicillin 875 mg-potassium 1 tab PO BID sinus infection 06/14/24 06/26/24 History clavulanate 125 mg tablet nystatin 500,000 unit tablet 500,000 unit PO QID PRN vaginal 06/14/24 06/26/24 History yeast infection Patient History Medical History (Updated 06/27/24 @ 18:05 by Meliton Hernandez PA-C) Gestational diabetes mellitus 2019 with first - diet controlled treated as a gestational diabetic with current , diet controlled Surgical History (Updated 06/27/24 @ 17:59 by Meliton Hernandez PA-C) History of hysterectomy, supracervical PONV (postoperative nausea and vomiting) with (2019) S/P 2024 History of tooth extraction Family History Grandfather (Paternal) Diabetes Coronary heart disease Brother No problems noted. Aunt Ovarian cancer maternal Mother FH: uterine cancer Gestational diabetes Family/Other Colorectal cancer maternal great grandmother Denies family history of Prostate cancer Myocardial infarction Breast cancer Social History Smoking Status: Never smoker Tobacco Type: Cigarettes Age Started Using Tobacco: 16; Age Quit Using Tobacco: 19; packs per day: 0.01; Second Hand Exposure: No; Do You Dip or Chew Tobacco: No; Hx Alcohol Use: No Hx Substance Use: No Preferred Language: Grenadian Communication Ability: Effective Visual Impairment: Limited Hearing Ability: Normal Non Profit Director Required: No Beliefs That Will Affect Care: None marital status: marital status details: Silverio Mueller (37) [phone] Current Living Situation: Spouse Current Living Situation Comment: lives with spouse and daughter, 3 dogs current occupational status: previously employed 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 Obvious discomfort. Laying in bed. Alert and oriented. Conversive. Skin: Warm and dry with good turgor. No rashes. Small area of ecchymosis present over the dorsum of her right hand from her previous IV site. Mild generalized edema present in her upper and lower extremities related to surgery and blood transfusion. Fingers on both upper extremities are edematous but not taut. Musculoskeletal: The patient has intact motor function of her elbow for flexion and extension. There is extremely limited supination and pronation secondary to pain at her wrist and hand. There is no active motion of the wrist and or digits secondary to complaints of pain. She is unwilling to do so. Passively I can flex the tips which does cause pain in the hand and wrist. No pain in the proximal forearm. Forearm compartments are soft and supple. The tissue around the wrist and in the palm is also soft and supple. Neurologic: Gross sensation is intact across the upper arm, forearm, wrist, and dorsum of the hand. She complains of numbness in the pads of the thumb, index, and long fingers. There is intact sensation to the pad of the ring and little finger. She also complains of altered sensation in the dorsum of the long and ring fingers. Circulatory: The patient has peripheral pulses of 2+ for both the radial and ulnar pulses of the right wrist. Capillary refill is brisk to each of the digits at less than 2 seconds. Results & Data Vital Signs (Past 12 Hours) Vital Signs Temp Pulse Pulse Resp BP BP Pulse Ox 06/27/24 13:15 105 H 14 95 06/27/24 13:06 107 H 15 94 06/27/24 13:01 132/91 06/27/24 13:01 132/91 06/27/24 12:45 106 H 15 94 06/27/24 12:36 102 H 12 95 06/27/24 12:18 112 H 12 95 06/27/24 12:06 97 H 13 95 06/27/24 12:00 130/100 06/27/24 12:00 130/100 06/27/24 12:00 36.6 C 06/27/24 11:45 107 H 17 96 06/27/24 11:33 100 H 19 95 06/27/24 11:21 103 H 17 96 06/27/24 11:01 126/84 06/27/24 09:30 107 H 14 96 06/27/24 09:01 109/76 06/27/24 09:01 109/06/27/24 09:01 109/76 06/27/24 09:01 109/06/27/24 09:00 103 H 16 95 06/27/24 08:42 112 H 13 96 06/27/24 08:30 98/72 L 06/27/24 08:30 98/72 L 06/27/24 08:24 147 H 26 H 99 06/27/24 08:00 107 H 06/27/24 08:00 122 H 20 97 06/27/24 08:00 121/74 06/27/24 07:30 108/80 06/27/24 07:18 104 H 12 97 06/27/24 07:11 36.4 C L 06/27/24 07:00 99 H 13 100 06/27/24 07:00 108/73 06/27/24 07:00 108/73 06/27/24 07:00 36.4 C L 100 H 16 104/67 100 06/27/24 06:50 112/76 06/27/24 06:50 112/76 06/27/24 06:45 115/70 06/27/24 06:45 98 H 20 110/61 100 06/27/24 06:40 108 H 18 89/56 L 100 06/27/24 06:35 114 H 20 94/70 L 100 06/27/24 06:30 36.4 C L 104 H 18 111/68 100 06/27/24 06:25 116 H 18 93/58 L 100 06/27/24 06:20 130 H 20 96/61 L 100 06/27/24 06:15 134 H 18 88/75 L 100 06/27/24 06:10 36.3 C L 134 H 16 81/54 L 100 06/27/24 03:38 138 H 86 L 06/27/24 03:34 138 H 91 06/27/24 03:33 144 H 86 L 06/27/24 03:30 36.5 C 142 H 94 06/27/24 03:29 148 H 89 L 06/27/24 03:27 143 H 88 L 06/27/24 03:24 151 H 95 06/27/24 03:19 88 L 06/27/24 03:19 147 H 06/27/24 03:19 154 H 80 L 06/27/24 03:16 139 H 96/50 L 06/27/24 03:14 146 H 94 06/27/24 03:13 142 H 85 L 06/27/24 03:09 148 H 96 06/27/24 03:04 157 H 96 06/27/24 03:02 155 H 105/61 06/27/24 02:59 145 H 98 06/27/24 02:54 144 H 98 06/27/24 02:49 147 H 100 06/27/24 02:45 36.4 C L 115 H 19 113/61 100 06/27/24 02:45 129 H 113/61 06/27/24 02:44 120 H 100 06/27/24 02:39 127 H 99 06/27/24 02:35 117 H 91/58 L 06/27/24 02:34 110 H 100 06/27/24 02:30 36.4 C L 106 H 15 91/58 L 100 06/27/24 02:29 101 H 100 06/27/24 02:25 36.4 C L 95 H 15 99 06/27/24 02:24 95 H 99 06/27/24 02:19 90 99 06/27/24 02:16 97 H 79/54 L 06/27/24 02:14 83 99 06/27/24 02:11 86 83/47 L 92 06/27/24 02:10 36.3 C L 90 16 83/47 L 95 06/27/24 02:09 85 97 06/27/24 02:05 83 98 06/27/24 02:00 87 100 O2 Del Method O2 Flow Rate 06/27/24 13:15 Room Air 06/27/24 13:06 06/27/24 13:01 06/27/24 13:01 06/27/24 12:45 06/27/24 12:36 06/27/24 12:18 06/27/24 12:06 06/27/24 12:00 06/27/24 12:00 06/27/24 12:00 06/27/24 11:45 06/27/24 11:33 06/27/24 11:21 06/27/24 11:01 06/27/24 09:30 06/27/24 09:01 06/27/24 09:01 06/27/24 09:01 06/27/24 09:01 06/27/24 09:00 06/27/24 08:42 06/27/24 08:30 06/27/24 08:30 06/27/24 08:24 06/27/24 08:00 06/27/24 08:00 06/27/24 08:00 06/27/24 07:30 06/27/24 07:18 06/27/24 07:11 06/27/24 07:00 Room Air 06/27/24 07:00 06/27/24 07:00 06/27/24 07:00 Nasal Cannula 2 06/27/24 06:50 06/27/24 06:50 06/27/24 06:45 06/27/24 06:45 Nasal Cannula 3 06/27/24 06:40 Nasal Cannula 3 06/27/24 06:35 Nasal Cannula 3 06/27/24 06:30 Nasal Cannula 3 06/27/24 06:25 Oxymask 5 06/27/24 06:20 Oxymask 5 06/27/24 06:15 Oxymask 5 06/27/24 06:10 Oxymask 8 06/27/24 03:38 06/27/24 03:34 06/27/24 03:33 06/27/24 03:30 06/27/24 03:29 06/27/24 03:27 06/27/24 03:24 06/27/24 03:19 06/27/24 03:19 06/27/24 03:19 06/27/24 03:16 06/27/24 03:14 06/27/24 03:13 06/27/24 03:09 06/27/24 03:04 06/27/24 03:02 06/27/24 02:59 06/27/24 02:54 06/27/24 02:49 06/27/24 02:45 06/27/24 02:45 06/27/24 02:44 06/27/24 02:39 06/27/24 02:35 06/27/24 02:34 06/27/24 02:30 06/27/24 02:29 06/27/24 02:25 06/27/24 02:24 06/27/24 02:19 06/27/24 02:16 06/27/24 02:14 06/27/24 02:11 06/27/24 02:10 06/27/24 02:09 06/27/24 02:05 06/27/24 02:00 Laboratory Results White count obtained earlier today was 21.4. H&H of 10.1 and 28.8. INR of 1.1. Total CK elevated at 719. Not unusual given her 2 recent surgeries. 06/27/24 06/27/24 06/27/24 Range/Units 18:23 16:54 14:26 WBC (4.8-10.8) K/ul RBC (4.20-5.40) M/uL Hgb (12.0-16.0) g/dl POC Hgb (12.0-16.0) g/dl Hct (37.0-47.0) % POC Hct (37-47) % MCV (80.0-100.0) fL MCH (25.0-34.0) pg MCHC (32.0-36.0) g/dL RDW Std Deviation (36.4-46.3) fL RDW Coeff of Michael (11.5-14.5) % Plt Count (130-400) K/uL MPV (9.4-12.4) fL Immature Gran % (Auto) % Neut % (Auto) % Lymph % (Auto) % [place] % (Auto) % Eos % (Auto) % Baso % (Auto) % Neut # (Auto) (1.40-6.50) K/uL Lymph # (Auto) (1.20-3.40) K/uL [place] # (Auto) (0.11-0.59) K/uL Eos # (Auto) (0.00-0.50) K/uL Baso # (Auto) (0.00-0.20) K/uL Immature Gran # (Auto) (0.01-0.20) K/uL Platelet Estimate (Normal) Polychromasia Echinocytes PT (9.0-12.0) Seconds INR (0.9-1.1) APTT (21-31) Seconds PTT Ratio Fibrinogen (184-400) mg/dl D-Dimer (0-500) ug/L FEU Specimen Type POC pH (7.35-7.45) POC pCO2 (35-46) mmHg POC pO2 (80-95) mmHg POC HCO3 (19-24) alfred/L POC Total CO2 (24-31) mmol/L POC Base Excess (-9-1.8) alfred/L POC ABG O2 Sat (90-95) % VBG pH (7.36-7.41) VBG pCO2 (38-50) mmHg VBG pO2 mmHg VBG HCO3 mmol/L VBG O2 Saturation % VBG Base Excess mEq/L POC Sodium (135-144) mmol/L Sodium 135 L 132 L (136-145) mmol/L POC Potassium (3.3-5.0) mmol/L Potassium 4.2 D 5.5 H (3.5-5.1) mmol/L Chloride 112 H 106 (98-107) mmol/L Carbon Dioxide 19 L 22 (21-32) mmol/L Anion Gap 4 4 (3-11) BUN 17 19 (6-23) mg/dl Creatinine 0.93 1.17 (0.6-1.2) mg/dl Est Cr Clr Drug Dosing 86.6 68.8 ml/min eGFR 81.69 62.02 BUN/Creatinine Ratio 18.3 16.2 (10-20) Glucose 106 H 135 H (70-99(Fasting)) mg/dl POC Glucose 114 H (70-99) mg/dl Lactate (0.4-2.0) mmol/L Calcium 6.5 L 7.6 L (8.6-10.3) mg/dl Ionized Calcium (1.12-1.32) mmol/L Phosphorus 4.3 (2.5-4.9) mg/dl Magnesium 1.4 L 1.6 L (1.7-2.4) mg/dl Total Creatine Kinase 719 H (26-192) U/L Treponema pallidum Ab (Negative) Blood Type Antibody Screen Crossmatch 06/27/24 06/27/24 06/27/24 Range/Units 12:33 11:54 08:54 WBC 21.40 H 19.01 H D (4.8-10.8) K/ul RBC 3.59 L 3.88 L (4.20-5.40) M/uL Hgb 10.1 L 10.8 L (12.0-16.0) g/dl POC Hgb (12.0-16.0) g/dl Hct 28.8 L 31.6 L (37.0-47.0) % POC Hct (37-47) % MCV 80.2 81.4 D (80.0-100.0) fL MCH 28.1 27.8 (25.0-34.0) pg MCHC 35.1 34.2 (32.0-36.0) g/dL RDW Std Deviation 44.1 44.9 (36.4-46.3) fL RDW Coeff of Michael 15.2 H 15.1 H (11.5-14.5) % Plt Count 155 131 D (130-400) K/uL MPV 11.6 11.4 (9.4-12.4) fL Immature Gran % (Auto) % Neut % (Auto) % Lymph % (Auto) % [place] % (Auto) % Eos % (Auto) % Baso % (Auto) % Neut # (Auto) (1.40-6.50) K/uL Lymph # (Auto) (1.20-3.40) K/uL [place] # (Auto) (0.11-0.59) K/uL Eos # (Auto) (0.00-0.50) K/uL Baso # (Auto) (0.00-0.20) K/uL Immature Gran # (Auto) (0.01-0.20) K/uL Platelet Estimate Normal (Normal) Polychromasia Echinocytes PT 11.6 (9.0-12.0) Seconds INR 1.1 (0.9-1.1) APTT 27 (21-31) Seconds PTT Ratio 1.0 Fibrinogen 224 (184-400) mg/dl D-Dimer (0-500) ug/L FEU Specimen Type POC pH (7.35-7.45) POC pCO2 (35-46) mmHg POC pO2 (80-95) mmHg POC HCO3 (19-24) alfred/L POC Total CO2 (24-31) mmol/L POC Base Excess (-9-1.8) alfred/L POC ABG O2 Sat (90-95) % VBG pH (7.36-7.41) VBG pCO2 (38-50) mmHg VBG pO2 mmHg VBG HCO3 mmol/L VBG O2 Saturation % VBG Base Excess mEq/L POC Sodium (135-144) mmol/L Sodium 133 L (136-145) mmol/L POC Potassium (3.3-5.0) mmol/L Potassium 5.3 H (3.5-5.1) mmol/L Chloride 108 H (98-107) mmol/L Carbon Dioxide 21 (21-32) mmol/L Anion Gap 4 (3-11) BUN 17 (6-23) mg/dl Creatinine 0.93 (0.6-1.2) mg/dl Est Cr Clr Drug Dosing 86.6 ml/min eGFR 81.69 BUN/Creatinine Ratio 18.3 (10-20) Glucose 129 H (70-99(Fasting)) mg/dl POC Glucose (70-99) mg/dl Lactate (0.4-2.0) mmol/L Calcium 7.4 L (8.6-10.3) mg/dl Ionized Calcium 1.05 L (1.12-1.32) mmol/L Phosphorus 3.9 (2.5-4.9) mg/dl Magnesium 1.4 L (1.7-2.4) mg/dl Total Creatine Kinase 779 H (26-192) U/L Treponema pallidum Ab (Negative) Blood Type Antibody Screen Crossmatch 06/27/24 06/27/24 06/27/24 Range/Units 08:49 06:45 06:42 WBC (4.8-10.8) K/ul RBC (4.20-5.40) M/uL Hgb (12.0-16.0) g/dl POC Hgb (12.0-16.0) g/dl Hct (37.0-47.0) % POC Hct (37-47) % MCV (80.0-100.0) fL MCH (25.0-34.0) pg MCHC (32.0-36.0) g/dL RDW Std Deviation (36.4-46.3) fL RDW Coeff of Michael (11.5-14.5) % Plt Count (130-400) K/uL MPV (9.4-12.4) fL Immature Gran % (Auto) % Neut % (Auto) % Lymph % (Auto) % [place] % (Auto) % Eos % (Auto) % Baso % (Auto) % Neut # (Auto) (1.40-6.50) K/uL Lymph # (Auto) (1.20-3.40) K/uL [place] # (Auto) (0.11-0.59) K/uL Eos # (Auto) (0.00-0.50) K/uL Baso # (Auto) (0.00-0.20) K/uL Immature Gran # (Auto) (0.01-0.20) K/uL Platelet Estimate (Normal) Polychromasia Echinocytes PT (9.0-12.0) Seconds INR (0.9-1.1) APTT (21-31) Seconds PTT Ratio Fibrinogen (184-400) mg/dl D-Dimer (0-500) ug/L FEU Specimen Type POC pH (7.35-7.45) POC pCO2 (35-46) mmHg POC pO2 (80-95) mmHg POC HCO3 (19-24) alfred/L POC Total CO2 (24-31) mmol/L POC Base Excess (-9-1.8) alfred/L POC ABG O2 Sat (90-95) % VBG pH 7.32 L (7.36-7.41) VBG pCO2 34 L (38-50) mmHg VBG pO2 126 mmHg VBG HCO3 18 mmol/L VBG O2 Saturation 99.7 % VBG Base Excess -7.7 mEq/L POC Sodium (135-144) mmol/L Sodium 134 L (136-145) mmol/L POC Potassium (3.3-5.0) mmol/L Potassium 4.9 D (3.5-5.1) mmol/L Chloride 109 H (98-107) mmol/L Carbon Dioxide 19 L (21-32) mmol/L Anion Gap 6 (3-11) BUN 15 (6-23) mg/dl Creatinine 0.89 (0.6-1.2) mg/dl Est Cr Clr Drug Dosing 90.5 ml/min eGFR 86.12 BUN/Creatinine Ratio 16.9 (10-20) Glucose 185 H (70-99(Fasting)) mg/dl POC Glucose (70-99) mg/dl Lactate 2.0 2.8 H* (0.4-2.0) mmol/L Calcium 7.0 L (8.6-10.3) mg/dl Ionized Calcium (1.12-1.32) mmol/L Phosphorus 4.6 (2.5-4.9) mg/dl Magnesium 1.4 L (1.7-2.4) mg/dl Total Creatine Kinase (26-192) U/L Treponema pallidum Ab (Negative) Blood Type Antibody Screen Crossmatch 06/27/24 06/27/24 06/27/24 Range/Units 04:43 03:51 03:38 WBC 30.79 H* D (4.8-10.8) K/ul RBC 3.43 L (4.20-5.40) M/uL Hgb 9.7 L (12.0-16.0) g/dl POC Hgb 10.5 L (12.0-16.0) g/dl Hct 30.2 L (37.0-47.0) % POC Hct 31 L (37-47) % MCV 88.4 D (80.0-100.0) fL MCH 28.3 (25.0-34.0) pg MCHC 32.1 (32.0-36.0) g/dL RDW Std Deviation 44.7 (36.4-46.3) fL RDW Coeff of Michael 14.1 (11.5-14.5) % Plt Count 266 (130-400) K/uL MPV 12.3 (9.4-12.4) fL Immature Gran % (Auto) 1.8 % Neut % (Auto) 80.1 % Lymph % (Auto) 12.3 % [place] % (Auto) 5.3 % Eos % (Auto) 0.1 % Baso % (Auto) 0.4 % Neut # (Auto) 24.70 H (1.40-6.50) K/uL Lymph # (Auto) 3.79 H (1.20-3.40) K/uL [place] # (Auto) 1.62 H (0.11-0.59) K/uL Eos # (Auto) 0.02 (0.00-0.50) K/uL Baso # (Auto) 0.11 (0.00-0.20) K/uL Immature Gran # (Auto) 0.55 H (0.01-0.20) K/uL Platelet Estimate (Normal) Polychromasia 1+ Echinocytes 1+ PT 11.3 (9.0-12.0) Seconds INR 1.0 (0.9-1.1) APTT 27 (21-31) Seconds PTT Ratio 1.0 Fibrinogen 265 (184-400) mg/dl D-Dimer 20659 H* (0-500) ug/L FEU Specimen Type Arterial POC pH 7.22 L (7.35-7.45) POC pCO2 32 L (35-46) mmHg POC pO2 337 H (80-95) mmHg POC HCO3 13 L (19-24) aflred/L POC Total CO2 14 L (24-31) mmol/L POC Base Excess -15.0 L (-9-1.8) alfred/L POC ABG O2 Sat 100.0 H (90-95) % VBG pH (7.36-7.41) VBG pCO2 (38-50) mmHg VBG pO2 mmHg VBG HCO3 mmol/L VBG O2 Saturation % VBG Base Excess mEq/L POC Sodium 133 L (135-144) mmol/L Sodium 134 L (136-145) mmol/L POC Potassium 5.0 (3.3-5.0) mmol/L Potassium 3.9 (3.5-5.1) mmol/L Chloride 106 (98-107) mmol/L Carbon Dioxide 18 L (21-32) mmol/L Anion Gap 10 (3-11) BUN 14 (6-23) mg/dl Creatinine 1.00 (0.6-1.2) mg/dl Est Cr Clr Drug Dosing 80.5 ml/min eGFR 74.88 BUN/Creatinine Ratio 14.0 (10-20) Glucose 210 H (70-99(Fasting)) mg/dl POC Glucose (70-99) mg/dl Lactate (0.4-2.0) mmol/L Calcium 7.6 L (8.6-10.3) mg/dl Ionized Calcium 1.06 L (1.12-1.32) mmol/L Phosphorus (2.5-4.9) mg/dl Magnesium (1.7-2.4) mg/dl Total Creatine Kinase (26-192) U/L Treponema pallidum Ab (Negative) Blood Type Antibody Screen Crossmatch 06/26/24 Range/Units 23:33 WBC 9.89 (4.8-10.8) K/ul RBC 4.06 L (4.20-5.40) M/uL Hgb 11.1 L (12.0-16.0) g/dl POC Hgb (12.0-16.0) g/dl Hct 33.4 L (37.0-47.0) % POC Hct (37-47) % MCV 82.3 (80.0-100.0) fL MCH 27.3 (25.0-34.0) pg MCHC 33.2 (32.0-36.0) g/dL RDW Std Deviation 41.0 (36.4-46.3) fL RDW Coeff of Michael 13.7 (11.5-14.5) % Plt Count 179 (130-400) K/uL MPV 11.9 (9.4-12.4) fL Immature Gran % (Auto) % Neut % (Auto) % Lymph % (Auto) % [place] % (Auto) % Eos % (Auto) % Baso % (Auto) % Neut # (Auto) (1.40-6.50) K/uL Lymph # (Auto) (1.20-3.40) K/uL [place] # (Auto) (0.11-0.59) K/uL Eos # (Auto) (0.00-0.50) K/uL Baso # (Auto) (0.00-0.20) K/uL Immature Gran # (Auto) (0.01-0.20) K/uL Platelet Estimate (Normal) Polychromasia Echinocytes PT (9.0-12.0) Seconds INR (0.9-1.1) APTT (21-31) Seconds PTT Ratio Fibrinogen (184-400) mg/dl D-Dimer (0-500) ug/L FEU Specimen Type POC pH (7.35-7.45) POC pCO2 (35-46) mmHg POC pO2 (80-95) mmHg POC HCO3 (19-24) alfred/L POC Total CO2 (24-31) mmol/L POC Base Excess (-9-1.8) alfred/L POC ABG O2 Sat (90-95) % VBG pH (7.36-7.41) VBG pCO2 (38-50) mmHg VBG pO2 mmHg VBG HCO3 mmol/L VBG O2 Saturation % VBG Base Excess mEq/L POC Sodium (135-144) mmol/L Sodium (136-145) mmol/L POC Potassium (3.3-5.0) mmol/L Potassium (3.5-5.1) mmol/L Chloride (98-107) mmol/L Carbon Dioxide (21-32) mmol/L Anion Gap (3-11) BUN (6-23) mg/dl Creatinine (0.6-1.2) mg/dl Est Cr Clr Drug Dosing ml/min eGFR BUN/Creatinine Ratio (10-20) Glucose (70-99(Fasting)) mg/dl POC Glucose (70-99) mg/dl Lactate (0.4-2.0) mmol/L Calcium (8.6-10.3) mg/dl Ionized Calcium (1.12-1.32) mmol/L Phosphorus (2.5-4.9) mg/dl Magnesium (1.7-2.4) mg/dl Total Creatine Kinase (26-192) U/L Treponema pallidum Ab Negative (Negative) Blood Type AB Positive Antibody Screen NEGATIVE Crossmatch See Detail Diagnostic Findings Vascular ultrasound obtained earlier today of the right arm shows superficial venous thrombus measuring 10 cm in the cephalic vein extending from the antecubital fossa distal to the forearm.
[2024-06-27 14:57] LABS: BUN Creatinine Ratio 16.2 (10-20); Calcium 7.6 mg/dl (8.6-10.3); Creatinine Clr Calc Pharmacy 68.8 ml/min; Magnesium 1.6 mg/dl (1.7-2.4); Phosphorus 4.3 mg/dl (2.5-4.9); Potassium 5.5 mmol/L (3.5-5.1)
[2024-06-27] MEDS: fentaNYL citrate PF 100 MCG/2 ML VIAL IV ONE (15:27)
[2024-06-27] MEDS: SODIUM CHLORIDE 0.9% 500 ML IV ONE (15:29)
[2024-06-27] MEDS: ceFAZolin 2000MG 2,000 MG/15 ML SYR IV SCH (15:57)
[2024-06-27] MEDS: SODIUM BICARBONATE 8.4% 150 MEQ in WATER, STERILE 1,000 ML IV SCH (15:57)
[2024-06-27 17:33] LABS: BUN Creatinine Ratio 18.3 (10-20); Calcium 6.5 mg/dl (8.6-10.3); Creatinine Clr Calc Pharmacy 86.6 ml/min; Magnesium 1.4 mg/dl (1.7-2.4); Potassium 4.2 mmol/L (3.5-5.1)
--- NOTE | 2024-06-27 17:50 | Communication Note ---
Date of Service: June 27, 2024 Summary of interim events today. Tracy underwent KATHI in main OR at around 4am today, which I assisted after being called in by Dr. Rojas. For PACU recover, Tracy was moved to ICU bed 3. Through the AM today, Tracy achieved hemodynamic stability with normal vitals, and a hemoglobin of 10.1 from a sherley of 9.7. This is despite QBL of 2800cc, and represents prompt transfusion with 4u pRBC and additional fluid resuscitation measures as well as stoppage of blood loss via KATHI. Her A-line in the L hand was discontinued mid-day when hemodynamic stability had been consistently demonstrated. Her pain management at the abdomen and incision site has been excellent. She is appropriately tearful at times and relates that this has been a very stressful experience. We had a chat at bedside today providing emotional support. During her supracervical hysterectomy earlier today, an elevated D-Dimer was reported at 14,420 by the lab to the OR as a critical value. The patient was noted in the ICU to have swelling and pain in R hand, and workup showed there was a 10cm superficial thrombus in the R cephalic vein. Her peripheral IV on that side was discontinued. Elevation of the limb has been employed and IV pain management provided but the swelling persists and the pain is significantly bothersome to patient. Ortho (Dr. Westbrook) was consulted by ICU and was at bedside during one of my recent visits. The plan for this thrombus is therapeutic anticoagulation with lovenox. Coagulation studies were requested prior to start of anticoagulation. Hematology's input was requested by ICU and shared with me by Francisco and Dr. Mcmillan earlier today. At that time, the team was leaning against transfusing any cryo or FFP given fibrinogen 220 (criteria per ICU note is maintain >200) and there was not active bleeding. Later this afternoon I was notified by Tracy's RN that she had begun oozing thin pink bloody fluid enough from her abdominal incision to saturate her dressing, which had previously been dry. I went to the bedside and confirmed active oozing at the incision, which was new. Discussing this change in person with Dr. Mcmillan, a decision was made to proceed with giving additional blood product. I have followed closely through the day and appreciate ICU management of this complicated case. Currently, I anticipate Tracy remaining in ICU for overnight observation given the above events. It seems likely that she will be stable for transfer to the usual floor level of care tomorrow AM, presuming her anticoagulation is started without incident and her RUE pain begins to respond as expected.
[2024-06-27] MEDS ORDERED: PROMETHAZINE 12.5 MG/50.5 ML BAG IV PRN (18:17)
[2024-06-27] MEDS ORDERED: oxyCODONE HCL IR 5 MG TAB (IMMEDIATE RELEASE) PO PRN (18:17)
[2024-06-27] MEDS ORDERED: diphenhydrAMINE Capsule 25 MG CAP PO PRN (18:17)
--- NOTE | 2024-06-27 19:18 | Communication Note ---
Date of Service: June 27, [address] Mcmillan will start Lovenox 1mg/kg AC tonight. This was discussed with patient's primary team (Dr. Mcmanus) and all are in agreement. She will be mo nitored closely for any bleeding. Coding Level of Care Code None
[2024-06-27] MEDS ORDERED: ENOXAPARIN 1 MG/KG SC SCH (19:30)
[2024-06-27] MEDS: ENOXAPARIN 100 MG/1ML SYR SQ SCH (20:16)
[2024-06-27] MEDS: OXYTOCIN 10 UNITS/ML VIAL ONE (22:15)
[2024-06-28] MEDS ORDERED: KETOROLAC 30 MG/ML VIAL IV PRN (01:21)
[2024-06-28] MEDS: IBUPROFEN 600 MG TAB PO SCH (02:19)
[2024-06-28] MEDS: HYDROmorphone INJ 0.5 MG/0.5 ML SYR IV PRN (03:00)
[2024-06-28 05:30] LABS: Hematocrit (blood only) 19.5 % (37.0-47.0); Hemoglobin 6.6 g/dl (12.0-16.0); Mean Corpuscular Hemoglobin 27.7 pg (25.0-34.0); Mean Corpuscular Hgb Conc 33.8 g/dL (32.0-36.0); Mean Corpuscular Volume 81.9 fL (80.0-100.0); Mean Platelet Volume 11.8 fL (9.4-12.4); Platelet Count 141 K/uL (130-400); RDW Coefficient of Variation 15.9 % (11.5-14.5); RDW Standard Deviation 46.8 fL (36.4-46.3); Red Blood Count 2.38 M/uL (4.20-5.40); White Blood Count 11.79 K/ul (4.8-10.8)
[2024-06-28] MEDS ORDERED: SODIUM CHLORIDE 0.9% 50 ML IV PRN (05:31)
[2024-06-28] MEDS ORDERED: SODIUM CHLORIDE 0.9% 100 ML IV PRN (05:31)
[2024-06-28 05:35] LABS: BUN Creatinine Ratio 17.9 (10-20); Calcium 7.5 mg/dl (8.6-10.3); Creatinine Clr Calc Pharmacy 92.6 ml/min; Magnesium 2.5 mg/dl (1.7-2.4); Phosphorus 3.8 mg/dl (2.5-4.9); Potassium 4.4 mmol/L (3.5-5.1)
[2024-06-28] MEDS: ICU ELECTROLYTE REPLACEMENT PROTOCOL SCH (06:06)
[2024-06-28 06:27] LABS: Basophils # (auto) 0.01 K/uL (0.00-0.20); Basophils % (auto) 0.1 %; Eosinophils # (auto) 0.01 K/uL (0.00-0.50); Eosinophils % (auto) 0.1 %; Immature Granulocytes # (auto) 0.07 K/uL (0.01-0.20); Immature Granulocytes % (auto) 0.6 %; Lymphocytes # (auto) 1.99 K/uL (1.20-3.40); Lymphocytes % (auto) 16.9 %; Monocytes # (auto) 1.08 K/uL (0.11-0.59); Monocytes % (auto) 9.2 %; Neutrophils # (auto) 8.63 K/uL (1.40-6.50); Neutrophils % (auto) 73.1 %; RBC Morphology Unremarkable
--- NOTE | 2024-06-28 07:43 | Obstetrical Progress Note ---
Date of Service June 28, 2024 Assessment & Plan (1) Acute blood loss anemia: Patient with measured blood loss >2800cc in association with RCS/BTL, then atonic hemorrhage, then ExLap/KATHI. Had received 4u pRBC at time of surgery, and then yesterday evening received 2u FFP and 1u Cryoprecipitate due to both clinical findings and laboratory signs of DIC. Overnight labs showed a Hgb drop to 6.6 which I believe represents delayed equilibration rather than ongoing losses. This morning the patient feels significantly better overall. She has no clinical s/sx of ongoing bleeding beyond the oozing into her dressing which was not of a sufficient volume to drop her Hgb. She as no abdominal findings to suggest intra-abdominal loss. Further, her measured blood loss during acute events yesterday did not until now really correlate with the hemoglobin levels we were seeing. Another unit of pRBC is already infusing for 5 total, with additional blood held prn. Patient's urine output overnight was excellent, further suggesting clinical improvement is ongoing. With respect to her RUE, pain levels are improving rapidly as lovenox treatment has begun. The patient is not interested presently in pursuing the carpal tunnel release procedure discussed with her yesterday by ortho. Plan for today will be to move out of the ICU setting, discontinue laureano, advance diet, and complete transfusion / repeat CBC at noon to ensure anemia is continuing to correct as expected. Continue Lovenox 40mg SQ BID for pain associated with large superficial RUE thrombus. (2) Previous section complicating , antepartum condition or complication: Subjective Patient is "a whole new person" this morning, looks and feels much better than yesterday afternoon. Significant decrease in pain in RUE, with increased mobility and now able to flex/extend fingers as well as move arm without pain. Incisional pain remains minimal. VB minimal. Able to tolerate clears PO yesterday, no n/v. No CP, SOB. Did experience some dizziness and mild tachy with upright position yesterday per RN, but feels well sitting upright in bed eating breakfast this morning during my visit including some solid foods. Mood much improved now, which pt attributes largely to regaining use of her dominant hand. Has been able to hold her baby. Physical Exam Sitting up in bed eating breakfast, NAD, conversant. HEENT grossly WNL. Smiling for the first time since yesterday AM that I've seen. Cor: RRR on monitor currently Lungs: No resp distress, fully fluid speech Abd: Soft, NT, ND, Incision with minimal serosanguinous output (small area of red clotted/dried blood on dressing now, compared to yesterday when entire dressing was saturated with thin red-pink liquid and active oozing was seen.) Ext: RUE with decreased edema but still puffy, 1+ down from 3+ yesterday. Moving fingers and arm now spontaneously. LUE normal. Bilateral pedal edema improved from 3+ to 1+. Laureano: Clear copious urine output. Results & Data Vital Signs (Past 12 Hours) Vital Signs Temp Pulse Pulse Resp BP BP Pulse Ox 06/28/24 06:50 83 18 138/74 99 06/28/24 06:20 98.1 F 88 21 147/76 H 98 06/28/24 06:05 98.1 F 78 18 133/76 99 06/28/24 05:45 98.4 F 93 H 20 129/55 L 97 06/28/24 05:00 78 13 115/64 95 06/28/24 03:45 98.8 F 80 14 122/60 94 06/28/24 03:00 98.4 F 79 12 128/71 98 06/28/24 02:00 83 14 130/60 96 06/28/24 01:00 101 H 14 130/58 L 94 06/28/24 00:00 97.9 F 107 H 15 125/58 L 95 06/27/24 23:59 105 H 06/27/24 23:00 97.9 F 101 H 14 126/68 100 06/27/24 22:50 97.9 F 108 H 18 130/82 96 06/27/24 22:13 98.2 F 97 H 14 140/67 98 06/27/24 21:43 98.4 F 108 H 14 144/74 H 98 06/27/24 21:28 98.4 F 101 H 14 140/78 98 06/27/24 21:12 98.4 F 99 H 12 142/73 H 96 06/27/24 20:59 98.4 F 99 H 15 142/73 H 97 06/27/24 20:40 97.9 F 100 H 15 150/79 H 97 06/27/24 20:00 87 06/27/24 19:40 98.2 F 108 H 18 109/72 94 O2 Del Method 06/28/24 06:50 06/28/24 06:20 06/28/24 06:05 06/28/24 05:45 06/28/24 05:00 Room Air 06/28/24 03:45 Room Air 06/28/24 03:00 Room Air 06/28/24 02:00 Room Air 06/28/24 01:00 06/28/24 00:00 06/27/24 23:59 06/27/24 23:00 Room Air 06/27/24 22:50 06/27/24 22:13 06/27/24 21:43 06/27/24 21:28 06/27/24 21:12 06/27/24 20:59 06/27/24 20:40 06/27/24 20:00 06/27/24 19:40
--- NOTE | 2024-06-28 08:31 | Critical Care Progress Note ---
Date of Service June 28, 2024 Assessment & Plan (1) Primary hemorrhage: (2) Hemorrhagic shock: (3) Acute blood loss anemia: (4) Cephalic vein thrombosis: (5) Right hand pain: Plan Reason Critically Ill: 1. Primary post- hemorrhage 2/2 uterine atony 2. Acute blood loss anemia 3. Hemorrhagic shock 4. Leukocytosis, likely reactive i/s/o physiologic stress 5. Metabolic acidosis, non-anion gap 6. Hypocalcemia 2/2 #2 Neuro - RASS GOAL 0 Multimodal pain management per OBGYN APAP PRN pain/fever Maintain normothermia Cardiac - MAP goal > 65mmHg Hypotension resolved. Respiratory Extubated to oxymask --> Room air currently. SpO2 goal > 92% IS/Flutter HOB 30, aspiration precautions GI - Diet: Diet advanced per OB. SUP: N/A Bowel regimen: Miralax RENAL/LYTES - Hyperkalemia and acidosis resolved. Continue LR per OB. ENDO - BG 140-180 per [facility] guidelines ISS if needed while inpatient HEME - S/p 5U PRBC, 1 unit of cryo and 2 units of FFP. Repeat coag studies daily Concern for DIC yesterday which appears to have resolved. Hemoglobin down to currently likely post surgical hemodilutional. Status post 1 unit of packed RBC today. PRBC transfusion as needed for HGB > 7 Patient with cephalic vein clot. Technically superficial vein thrombosis. Given her hypercoagulable state and concern for DIC earlier this hospitalization, would favor full dose anticoagulation for 45 days and repeating ultrasound of her right upper extremity as an outpatient. ID - Perioperative antibiotics per OBGYN Culture and treat as indicated Trend fever curve and WBC LINES/TUBES/DRAINS - PIV x2 Buchanan (Day #2) - d/c when able. MUSCULOSKELETAL - Right hand pain significantly improved. Cephalic vein clot noted. Continue multimodal pain control. DVT PROPHYLAXIS - Full dose Lovenox DISPOSITION - Okay to transfer to OB. ICU services to sign off. Thank you for the consult. Please call with questions. Admission and Anticipated Discharge Date Admission Date: June 26, 2024 Subjective Patient seen examined. Right hand pain is much better today. Denies any overt evidence of bleeding. Denies any chest pain, shortness of breath, nausea or vomiting. Slept well last night. In much better spirits today. Review of Systems Review of Systems: All systems reviewed & are unremarkable except as noted in HPI & below Physical Exam Physical Exam: Constitutional: Patient appears to be of their stated age. Patient is in no apparent distress. Patient is well-developed. Eyes: Pupils are equal round and reactive to light. Conjunctivae are normal. Anicteric sclera. Ears nose, mouth and throat: No perioral cyanosis. Neck: Trachea is midline. Visual inspection is normal. Respiratory: Clear to auscultation bilaterally. No use of accessory muscles. No significant clubbing noted. Cardiovascular: Regular rate and rhythm. No murmurs. Minimal edema of the upper extremities. Gastrointestinal: Normal bowel sounds, soft, nontender and nondistended. No hepatosplenomegaly noted. Hysterectomy incision site is clean dry and intact. Very minimal serosanguineous drainage. Musculoskeletal: No cyanosis. Patient is able to move all extremities. Strength is 5 out of 5 in the upper and lower extremities. She is able to open and close her right hand now has significantly improved pain in the right hand. Skin: No rashes, warm dry and intact. Neurologic: No obvious focal neurological deficits seen. Psychiatric: Alert and oriented x3 with a euthymic affect. Results & Data Results & Data Vital Signs (Past 12 Hours) Vital Signs Temp Pulse Pulse Resp BP BP Pulse Ox 06/28/24 08:03 37.1 C 83 13 96 06/28/24 07:50 37.1 C 95 H 15 133/71 95 06/28/24 07:00 151/78 H 06/28/24 06:50 83 18 138/74 99 06/28/24 06:20 36.7 C 88 21 147/76 H 98 06/28/24 06:05 36.7 C 78 18 133/76 99 06/28/24 05:45 36.9 C 93 H 20 129/55 L 97 06/28/24 05:00 78 13 115/64 95 06/28/24 03:45 37.1 C 80 14 122/60 94 06/28/24 03:00 36.9 C 79 12 128/71 98 06/28/24 02:00 83 14 130/60 96 06/28/24 01:00 101 H 14 130/58 L 94 06/28/24 00:00 36.6 C 107 H 15 125/58 L 95 06/27/24 23:59 105 H 06/27/24 23:00 36.6 C 101 H 14 126/68 100 06/27/24 22:50 36.6 C 108 H 18 130/82 96 06/27/24 22:13 36.8 C 97 H 14 140/67 98 06/27/24 21:43 36.9 C 108 H 14 144/74 H 98 06/27/24 21:28 36.9 C 101 H 14 140/78 98 06/27/24 21:12 36.9 C 99 H 12 142/73 H 96 06/27/24 20:59 36.9 C 99 H 15 142/73 H 97 06/27/24 20:40 36.6 C 100 H 15 150/79 H 97 O2 Del Method 06/28/24 08:03 06/28/24 07:50 06/28/24 07:00 06/28/24 06:50 06/28/24 06:20 06/28/24 06:05 06/28/24 05:45 06/28/24 05:00 Room Air 06/28/24 03:45 Room Air 06/28/24 03:00 Room Air 06/28/24 02:00 Room Air 06/28/24 01:00 06/28/24 00:00 06/27/24 23:59 06/27/24 23:00 Room Air 06/27/24 22:50 06/27/24 22:13 06/27/24 21:43 06/27/24 21:28 06/27/24 21:12 06/27/24 20:59 06/27/24 20:40 Coding Level of Care Code 19962 SUB INP/OBS CARE 2/MIN Diagnoses Primary hemorrhage O72.1 Hemorrhagic shock R57.8 Acute blood loss anemia D62 Cephalic vein thrombosis I82.619 Right hand pain M79.641
--- NOTE | 2024-06-28 09:52 | Orthopedic Progress Note ---
Date of Service June 28, 2024 Assessment & Plan (1) Acute carpal tunnel syndrome of right wrist: Plan: The patient was educated regarding today's findings. Her symptoms have improved but not fully resolved. I discussed using a cock up wrist splint with the fatmata hart. She states she already has 1 at home and will use it when she returns there. She is doing well enough to hold her son in the right arm. She may follow-up in the office to discuss carpal tunnel release if she desires, or return to her previous orthopedic practice that she saw initially. Continue with elevation and gentle compression for edema control. She may also perform finger pumps for additional fluid removal. Orthopedics will sign off at this point. Admission and Anticipated Discharge Date Admission Date: June 26, 2024 Supervising Physician Co-Signing Physician Notes I, Dr. Westbrook, saw and examined the patient. I discussed the management with my PA. I reviewed my PAs note and agree with the documented findings and attest to completing the substantive portion of medical decision making and plan of care I developed. RUE: Sensation to light touch much improved. Decreased swelling. Improved motor of the digits and wrist. BCR < 2 sec. Pain and swelling RUE due to Cephalic vein blood clot and DIC F/U in 4-6 weeks, discussed possible CTR as an outpatient after she is medically stable. Please recall if any ortho issues. Subjective This 34-year-old female is seen today in her room. She is now on the obstetric floor, having been moved from ICU this morning. She states she is doing much better. She still has pain in her hand as well as some numbness in her fingers, but is much improved. No other complaints. Physical Exam Physical Exam: General: Well-developed, well-nourished, young female, in no acute distress. Laying in bed holding her son. She is holding him with the right arm and hand. Skin: Warm dry with good turgor. No rashes. Her edema from yesterday has improved noticeably. She still has some minor edema in her fingers. Small area of ecchymosis present over the dorsum of her right hand. Musculoskeletal: The patient has intact motor function of her wrist and digits. She is able to actively flex the FDP and FDS tendons to each of the fingers. Strength is 5/5 for resisted flexion and extension. There is no significant pain with flexion and extension. She is unable to make a full fist secondary to the residual swelling in the digits. She has no pain with palpation over the forearm, wrist, hand, or digits. Neurologic: Gross sensation is intact across each of the digits by soft touch. She complains of tingling in her thumb tip as well as her index and long fingers. She still has some tingling over the dorsum of her long finger as well. The rest of her hand and digits have returned to normal sensation. Peripheral pulses are 2+. Capillary refill is still less than 2 seconds. Results & Data Vital Signs (Past 12 Hours) Vital Signs Temp Pulse Pulse Resp BP BP Pulse Ox 06/28/24 08:03 37.1 C 83 13 96 06/28/24 07:50 37.1 C 95 H 15 133/71 95 06/28/24 07:00 151/78 H 06/28/24 06:50 83 18 138/74 99 06/28/24 06:20 36.7 C 88 21 147/76 H 98 06/28/24 06:05 36.7 C 78 18 133/76 99 06/28/24 05:45 36.9 C 93 H 20 129/55 L 97 06/28/24 05:00 78 13 115/64 95 06/28/24 03:45 37.1 C 80 14 122/60 94 06/28/24 03:00 36.9 C 79 12 128/71 98 06/28/24 02:00 83 14 130/60 96 06/28/24 01:00 101 H 14 130/58 L 94 06/28/24 00:00 36.6 C 107 H 15 125/58 L 95 06/27/24 23:59 105 H 06/27/24 23:00 36.6 C 101 H 14 126/68 100 06/27/24 22:50 36.6 C 108 H 18 130/82 96 06/27/24 22:13 36.8 C 97 H 14 140/67 98 O2 Del Method 06/28/24 08:03 06/28/24 07:50 06/28/24 07:00 06/28/24 06:50 06/28/24 06:20 06/28/24 06:05 06/28/24 05:45 06/28/24 05:00 Room Air 06/28/24 03:45 Room Air 03/13/25 03:00 Room Air 06/28/24 02:00 Room Air 06/28/24 01:00 06/28/24 00:00 06/27/24 23:59 06/27/24 23:00 Room Air 06/27/24 22:50 06/27/24 22:13 Laboratory Results CBC obtained this morning has reduced to 11.79. H&H of 6.6 and 19.5, likely diluted from her IV fluids yesterday.
--- NOTE | 2024-06-28 11:35 | Obstetrical Progress Note ---
Date of Service June 28, 2024 Assessment & Plan Admission and Anticipated Discharge Date Admission Date: June 26, 2024 Subjective Called to room to evaluate incision, evaluated at approx 10am today after transfer from ICU. Incision clean and intact. Serosanguinous fluid seeping from one area in wound. No active bleeding, no surrounding erythema. No bleeding or oozing from both active IV sites - therefore do not suspect this is actually diluted blood - suspect this more likely to be serosanguinous fluid as patient is recovering from the 3rd spacing of fluids after delivery, surgery, and hemorrhage. Will add coags to today's CBC draw at noon to ensure no worsening coagulopathy. Patient is awake, talking, feeling much better, feels like right arm is less swollen than before. Asking to get up and shower today. Results & Data Vital Signs (Past 12 Hours) Vital Signs Temp Pulse Pulse Resp BP BP Pulse Ox 06/28/24 08:03 37.1 C 83 13 96 06/28/24 07:50 37.1 C 95 H 15 133/71 95 06/28/24 07:00 151/78 H 06/28/24 06:50 83 18 138/74 99 06/28/24 06:20 36.7 C 88 21 147/76 H 98 06/28/24 06:05 36.7 C 78 18 133/76 99 06/28/24 05:45 36.9 C 93 H 20 129/55 L 97 06/28/24 05:00 78 13 115/64 95 06/28/24 03:45 37.1 C 80 14 122/60 94 06/28/24 03:00 36.9 C 79 12 128/71 98 06/28/24 02:00 83 14 130/60 96 06/28/24 01:00 101 H 14 130/58 L 94 06/28/24 00:00 36.6 C 107 H 15 125/58 L 95 06/27/24 23:59 105 H O2 Del Method 06/28/24 08:03 06/28/24 07:50 06/28/24 07:00 06/28/24 06:50 06/28/24 06:20 06/28/24 06:05 06/28/24 05:45 06/28/24 05:00 Room Air 06/28/24 03:45 Room Air 06/28/24 03:00 Room Air 06/28/24 02:00 Room Air 06/28/24 01:00 06/28/24 00:00 06/27/24 23:59 PG Care Time/CCT Total # of Minutes Spent Total Time Spent with Patient: Total time spent is greater than 50% in coordination of care (as documented) at patient's floor/unit and/or counseling patient: Coding Level of Care Code None
[2024-06-28 12:37] LABS: Hematocrit (blood only) 21.5 % (37.0-47.0); Hemoglobin 7.3 g/dl (12.0-16.0); Mean Corpuscular Hemoglobin 28.3 pg (25.0-34.0); Mean Corpuscular Volume 83.3 fL (80.0-100.0); Mean Platelet Volume 10.9 fL (9.4-12.4); Platelet Count 136 K/uL (130-400); RDW Coefficient of Variation 15.9 % (11.5-14.5); RDW Standard Deviation 47.9 fL (36.4-46.3); Red Blood Count 2.58 M/uL (4.20-5.40); White Blood Count 11.19 K/ul (4.8-10.8)
[2024-06-28 13:05] LABS: Fibrinogen 383 mg/dl (184-400); Partial Thromboplastin Ratio 1.1; Partial Thromboplastin Time 29 Seconds (21-31); Prothrombin Time 10.5 Seconds (9.0-12.0)
[2024-06-28] MEDS: bisacodyL 5 MG TABEC PO SCH (21:32)
[2024-06-28] MEDS: ENOXAPARIN 80 MG/0.8 ML SYR SQ SCH (21:33)
[2024-06-29 00:41] VITALS: RESP 18; O2SAT 98
[2024-06-29] MEDS ORDERED: IBUPROFEN 600 MG TAB PO PRN (01:21)
[2024-06-29] MEDS ORDERED: bisacodyL 10 MG SUPP PR PRN (01:21)
[2024-06-29] MEDS ORDERED: ACETAMINOPHEN 325 MG TAB ONE (05:16)
[2024-06-29 05:58] LABS: Hematocrit (blood only) 21.8 % (37.0-47.0); Hemoglobin 7.4 g/dl (12.0-16.0)
[2024-06-29 06:03] LABS: BUN Creatinine Ratio 18.5 (10-20); Creatinine Clr Calc Pharmacy 117.7 ml/min
--- NOTE | 2024-06-29 06:10 | Obstetrical Progress Note ---
Date of Service June 29, 2024 Assessment & Plan (1) Primary hemorrhage: (2) Acute blood loss anemia: (3) Acute carpal tunnel syndrome of right wrist: (4) Cephalic vein thrombosis: (5) state: (6) S/P hysterectomy: Plan Tracy is a 34yo ppd 2 s/p RCS and supracervical hysterectomy complicated by hemorrhage and 5units blood received. VSS, feeling great this AM Hgb: 7.3 -> 7.4 this AM, asymptomatic Continue and ambulation as tolerated, supplementing as milk hasn't come in much yet Pain management with ibuprofen/tylenol, narcotics as needed for breakthrough pain Home when medically stable and cleared Followup with Dr. Hernandez in 6wks Admission and Anticipated Discharge Date Admission Date: June 26, 2024 Supervising Physician Co-Signing Physician Notes Resident Physician Supervision Note: I interviewed and examined the patient. Discussed with Dr. Royal and agree with findings and plan as documented in the note. Any exceptions or clarifications are listed here: POD#2 doing well. She is now s/p 5u PRBC, 2u FFP, 1u cryo. Bleeding stopped. Incision is clean/dry/intact, no longer oozing serosanguinous fluid. Buchanan out, ambulated and urinating on her own. Pain controlled. Eating/drinking well. She is wanting to go home today - will want to watch for this morning's labs and reeval around lunchtime. Documented By: Maggi Mccullough, DO Subjective Tracy is a 34yo ppd 2 s/p RCS and supracervical hysterectomy complicated by hemorrhage and 5units blood received. Back on floor since day prior, feeling much better than when she was brought to the ICU. Feeling: great Pain: minimal Amb: yes Void: urinating, no BM Gas: yes Lochia: minimal Diet: tolerating since last night Feeding: breast, bottle as needed Sx: denies Physical Exam Physical Exam: General: Well-developed, well-nourished, young female, in no acute distress. Laying in bed holding her son. Skin: Warm dry with good turgor. No rashes. Her edema from yesterday has improved noticeably. She still has some minor edema in her fingers. Small area of ecchymosis present over the dorsum of her right hand. MSK: The patient has intact motor function of her wrist and digits. Neurologic: Gross sensation is intact across each of the digits by soft touch. She complains of tingling in her thumb tip as well as her index and long fingers. She still has some tingling over the dorsum of her long finger as well. The rest of her hand and digits have returned to normal sensation. Peripheral pulses are 2+. Capillary refill is still less than 2 seconds. GI/Abd: abdomen soft, moderate tenderness to palpation, low transverse incision scar healing well with no signs of infection, middle portion one step behind rest of scar in healing process but no oozing LE: trace edema, calves nontender to palpation, wiggles toes on command Results & Data Vital Signs (Past 12 Hours) Vital Signs Temp Pulse Resp BP BP Pulse Ox O2 Del Method 06/29/24 05:00 36.6 C 80 18 136/73 98 Room Air 06/29/24 00:00 Room Air 06/29/24 00:00 36.9 C 88 18 136/76 98 Room Air 06/28/24 20:45 36.8 C 71 20 116/69 97 Room Air Resident Activity Tracking Resident Involvement: Resident Care Provided Care Provided: OB Delivery
[2024-06-29] MEDS ORDERED: ACETAMINOPHEN 325 MG TAB PO PRN (07:21)
[2024-06-29 10:04] VITALS: BP 124/76; TEMP 98.1
[2024-06-29 13:03] VITALS: PULSE 88
--- NOTE | 2024-07-03 11:12 | Discharge Summary ---
Date of Service July 03, 2024 Admission HPI Per Admitting Provider Patient is a 34-year-old 2 para 1-0-0-1 female EDC of 07/04/2024 who presents at 38 6/7 weeks with spontaneous rupture membranes for clear fluid and spontaneous onset of labor. has been complicated by GDM diet- controlled and LGA fetus based on most recent growth scan. Blood sugars have been well-controlled. GBS is positive in her urine culture. Blood type is AB+. Rubella is equivocal. Prior complicated by primary section for failure to progress. Patient is requesting repeat section with bilateral salpingectomies because of unwanted fertility and multiparity. Admission Exam (Per Admitting) Constitutional WD/WN, vitals as above Respiratory normal respiratory effort, lungs clear to auscultation Cardiovascular RRR, no murmur, no edema Psychiatric A+Ox3, euthymic affect Genitourinary OB Exam Abdomen: + vertex and + regular contractions (Q2 minutes and moderate) Manual OB Exam: + amniotic fluid + clear (large amount) OB Exam Monitor Tracing: + external FHT monitor used, + external uterine monitor used, + category I and + normal FHT variability Discharge Data Consultations 06/26/24 23:14 Consult Anesthesiology Stat 06/27/24 06:34 Consult Net Developer Software Engineer C Stat 06/27/24 11:58 Consult Orthopedic Surgery Routine Procedures Performed Operation Date: 06/27/24 04:01 Actual Procedures p Supracervical Hysterectomy - Eveline Hernandez MD, FACOG Hospital Course (1) Primary hemorrhage: (2) Acute blood loss anemia: (3) Acute carpal tunnel syndrome of right wrist: (4) Cephalic vein thrombosis: (5) state: (6) S/P hysterectomy: Plan Tracy is a 34yo ppd 2 s/p RCS and supracervical hysterectomy complicated by hemorrhage and 5units blood received. VSS, feeling great this AM Hgb: 7.3 -> 7.4 this AM, asymptomatic Continue and ambulation as tolerated, supplementing as milk hasn't come in much yet Pain management with ibuprofen/tylenol, narcotics as needed for breakthrough pain Home when medically stable and cleared Followup with Dr. Hernandez in 6wks Discharge Plan Discharge Items Patient Disposition: Home - Self-Care Reason For Visit: SECTION Discharge Diagnosis: s/p repeat and supracervical hysterectomy, hemorrhage Activity: Per Instructions section Non-emergency contact: Primary Care Provider and Fur Tinter Call non-emergency contact if: your symptoms worsen and your pain is not controlled Follow-up/Referrals: Katelyn Ludwig MD [Primary Care Provider] - Diet: Regular Addtl Attending Provider Instructions: ACTIVITY RECOMMENDATIONS: * Gradual return to full activity over the next 2-3 weeks. * No lifting - nothing heavier than baby over the next 2-3 weeks. * Do not engage in vigorous exercise, sexual activity or sports until cleared by your physician. * Do not drive or operate any motorized equipment until cleared by your physician. * You may shower/bathe daily. MEDICATIONS: For discomfort or pain, you may use Acetaminophen (Tylenol), Ibuprofen (Advil), or Naproxen (Aleve) following the package directions. For constipation you may use Colace following the package directions. BREAST CARE: If you are not breast feeding: * Wear a supportive bra 24 hours a day for one to two weeks. * Avoid stimulating your breasts and nipples as much as possible during the first few weeks after delivery. * When taking a shower, have the warm water hit your back, not breasts. * When your breasts feel full, apply ice packs. Usually three to four times a day helps ease the discomfort. * Take a mild pain medication (Tylenol / Motrin) when you are uncomfortable. If breast feeding: * Use breast milk to lubricate nipples. Lansinoh cream may be used for sore nipples. You do not need to remove cream prior to breast feeding. If using a different brand of cream, check the label for directions regarding removal of cream prior to nursing. * Wear a supportive bra. * If having problems with breasts or breast feeding, call a network systems consultant or your health care provider. SPECIAL CARE INSTRUCTIONS: When you are discharged from the hospital, it is important for you to follow the instructions listed below: * During the first week at home, you should be able to care for yourself and your baby. In addition, the usual light household activities are encouraged. * Limit your activities to the way you feel. Do not try to clean the house or move furniture. Be sensible. * If you actively engage in sports and have done so up until the time of your delivery, you may resume these activities as soon as you feel able. This may take up to one month or even longer. Use good judgment. * Continue to take your vitamins for at least six weeks after the of your baby. * Your diet need not be limited unless you were on a special diet before your delivery. Breast-feeding mothers need around 2500 calories per day and at least 64-80 ounces of fluid per day (8 to 10 glasses). * You should eat foods from the four major food groups. Crash diets or fad diets are to be avoided. Eating lean meats, fresh fruits and vegetables, low-fat dairy products, high fiber foods and a regular exercise program, will help you get back to your pre- weight without putting your health at risk. * Constipation is sometimes a problem after delivery. Take a mild laxative as needed. If breast feeding, Milk of Magnesia is acceptable to use. You may use a suppository or Fleets enema. * A daily shower or tub bath is suggested. Wash incision daily with warm soapy water and pat dry. It doesn't need to be covered unless drainage is present. * A bloody vaginal discharge will usually continue until around four weeks . A small amount of bleeding may continue for as long as six weeks. Vaginal discharge changes from the bright red bleeding after delivery to pink then brownish and finally yellowish-pink before becoming white and disappearing. * Bleeding may increase with activity. Your first period may come in 4-8 weeks. If you are breast feeding, your period may be delayed even longer. * [place] (sex) can begin whenever both you and your partner feel comfortable and do not have any form of genital infection. It is recommended that you wait at least six weeks for internal and external healing to occur. If you have questions, please talk to your health care practitioner. A condom should be used to prevent infection and . * Foreplay, gentle intercourse and lubrication is very important the first several times to prevent pain. A water-based lubricant such as K-Y jelly or Astroglide may be used. * If you have RH negative blood and your baby is RH positive, you will receive RHOGAM by injection prior to discharge. The nurse will give you a card to keep with you that has the date and place that you received RHOGAM after delivery. * During your care, you had a Rubella screen done to check for the presence of rubella antibodies in your blood. If your test was negative, you will receive a Rubella vaccine prior to discharge. This vaccine may cause a fever, soreness at the injection site and flu-like symptoms. If these symptoms persist, notify your health care practitioner. is not advised for one month after a Rubella vaccine. * Verbalizes understanding of car seat law as reviewed with patient nursing. * Car Seat hand-out given and reviewed with patient by nursing. * Shaken baby information reviewed with patient by nursing. Call you doctor if: * Heavy bleeding (saturating several pads an hour) or passing clots the size of your fist. * A fever >101 degrees F (38.3 degrees C) on two occasions four hours apart and/or chills. * Unusual pain in the pelvic or vaginal areas. * Call the doctor for any increased redness, drainage or swelling around the incision and any pain unrelieved by prescribed pain medication. * "Baby Blues" lasting longer than two weeks. If you have any questions or concerns, call your health care practitioner at . FOLLOW UP VISIT: * Please call the office at to schedule a 6 week examination. It is important you keep this appointment. It is important for you to make arrangements for either yearly or twice yearly check-ups thereafter. Pending Studies at Discharge: No Stand-Alone Forms: My [facility], Smoking Cessation Medications and DC Order Prescriptions: New oxycodone 5 mg Tablet 5 mg PO Q4H PRN (Reason: pain) Qty: 14 0RF Continued prenat.vits,katty,[id number]-ixop-pwqpw Tablet 1 tab PO QAM (DME) lancets [OneTouch Delica Plus Lancet] 33 gauge misc See Rx Instructions .MEDSUPPLY Qty: 150 7RF Rx Instructions: As directed check blood sugars 4 times a day (DME) blood-glucose meter [OneTouch Verio Reflect Meter] Misc See Rx Instructions miscellaneous .MEDSUPPLY Qty: 1 0RF Rx Instructions: As directed (DME) OneTouch Verio test strips Strip See Rx Instructions .MEDSUPPLY Qty: 150 7RF Rx Instructions: check blood sugars 4 times a day (DME) Ketone Urine Test Strip See Rx Instructions .MEDSUPPLY Qty: 50 7RF Rx Instructions: As directed to check ketones in urine once a day in the morning nystatin 500,000 unit tablet 500,000 unit PO QID PRN (Reason: vaginal yeast infection) amoxicillin-pot clavulanate 875-125 mg tablet 1 tab PO BID No Action enoxaparin [Lovenox] 80 mg/0.8 mL syringe 80 mg subcut Q12H 42 Days Qty: 67.2 0RF Discharge Orders: Discharge Order (Routine); Ordered 06/29/24 Ordered By: Ralph Medina/Other Patient Handouts: DVT in , Understanding Depression Admission Data Admit Date/Time: 06/26/24 23:14 Attending Provider: Eveline Hernandez Admit Provider: Eveline Hernandez Primary Care Provider: Katelyn Ludwig Other Providers: Abdon Westbrook; Martin Mcmillan Other Interventions: Discharge Summary Assessment (RN) Last Done: 06/29/24 13:01 Supervising Physician Co-Signing Physician Notes Resident Physician Supervision Note: I interviewed and examined the patient. Discussed with Dr. Royal and agree with findings and plan as documented in the note. Any exceptions or clarifications are listed here: POD#2 doing well. She is now s/p 5u PRBC, 2u FFP, 1u cryo. Bleeding stopped. Incision is clean/dry/intact, no longer oozing serosanguinous fluid. [place] out, ambulated and urinating on her own. Pain controlled. Eating/drinking well. She is wanting to go home today - will want to watch for this morning's labs and reeval around lunchtime. Documented By: Maggi Mccullough DO Coding Level of Care Code 44702 IN/OBS DISCH 30 MIN/LESS Diagnoses Primary hemorrhage O72.1 Acute blood loss anemia D62 Acute carpal tunnel syndrome of right wrist G56.01 Cephalic vein thrombosis I82.619 state Z39.2 S/P hysterectomy Z90.710
== END 2024-06-29 15:35 | disposition home or self-care (01) | DRG 783 ==
LOC: OPB 23:01 → 4S1 23:03 → 1E 06-27 06:10 → 4E2 06-28 11:08
DX: O72.1 Other immediate postpartum hemorrhage; E87.20 Acidosis, unspecified; E87.5 Hyperkalemia; O99.284 Endocrine, nutritional and metabolic diseases complicating childbirth; G56.01 Carpal tunnel syndrome, right upper limb; E83.51 Hypocalcemia; M65.841 Other synovitis and tenosynovitis, right hand; O99.02 Anemia complicating childbirth; Z30.2 Encounter for sterilization; Z37.0 Single live birth; O99.354 Diseases of the nervous system complicating childbirth; O99.824 Streptococcus B carrier state complicating childbirth; D62 Acute posthemorrhagic anemia; R57.8 Other shock; O42.92 Full-term premature rupture of membranes, unspecified as to length of time between rupture and onset of labor; O36.63X0 Maternal care for excessive fetal growth, third trimester, not applicable or unspecified; I82.611 Acute embolism and thrombosis of superficial veins of right upper extremity; Z3A.38 38 weeks gestation of pregnancy; O24.420 Gestational diabetes mellitus in childbirth, diet controlled; Z83.3 Family history of diabetes mellitus; O34.211 Maternal care for low transverse scar from previous cesarean delivery; O26.893 Other specified pregnancy related conditions, third trimester